=== PATIENT | female | born 1965 | race Caucasian/White ===

== ENCOUNTER 2020-07-22 19:12 | Emergency (ER) | payer MEDICARE ==
[2020-07-22] MEDS ORDERED: Zofran 4 MG/2 ML VIAL IV ONE (19:17)
[2020-07-22] MEDS ORDERED: Sodium Chloride 0.9% 1000 ML 1,000 ML IV STA (19:17)
[2020-07-22] MEDS ORDERED: MORPHINE SULFATE 4 MG INJ IV ONE (19:17)
[2020-07-22] MEDS ORDERED: Zofran 4 MG/2 ML VIAL ONE (19:36)
[2020-07-22] MEDS ORDERED: Sodium Chloride 0.9% 1000 ML 1,000 ML ONE (19:36)
[2020-07-22] MEDS ORDERED: MORPHINE SULFATE 4 MG INJ ONE (19:36)
[2020-07-22 19:44] LABS: BASOPHIL % 0.4 % (0.0-0.4); Basophil (Absolute #) 0.05 (0-0.4); Eosinophil % 0.1 % (0.00-5.0); Eosinophil (Absolute #) 0.01 (0-0.5); Hematocrit 37.9 % (35-47); Hemoglobin 13.2 gm/dl (12.0-16.0); Lymphocyte (Absolute #) 1.34 (1.0-4.6); Lymphocytes % 10.3 % (24.0-44.0); Mean Corpuscular Hemoglobin 32.8 pg (26-32); Mean Corpuscular Hgb Concent. 34.8 g/dl (32-36); Mean Platelet Volume 8.5 fl (7.5-11.0); Monocyte (Absolute #) 0.96 (0.0-1.3); Monocytes % 7.4 % (0.0-12.0); Neutrophil % 81.8 % (36.0-66.0); Platelet Count 340 K/mm3 (150-450); Red Blood Count 4.03 M/mm3 (4.1-5.4); Red Cell Distribution Width 12.4 % (11.5-14.0); White Blood Count 13.1 K/mm3 (4.0-10.5)
[2020-07-22 20:14] LABS: Amourphous Crystal FEW /HPF (NEGATIVE); Appearance CLOUDY (CLEAR); Bilirubin NEGATIVE (NEGATIVE); Blood NEGATIVE Ery/ul (0-5); Epithelial Cells RARE /HPF (FEW); Glucose 50 mg/dL (NEGATIVE); Ketones SMALL (NEGATIVE); Leukocyte Esterase NEGATIVE (NEGATIVE); Mucus SLIGHT /HPF (NEGATIVE); Nitrite NEGATIVE (NEGATIVE); Protein,Urine Dip 30 (Negative); RBC 0-2 /HPF (0-2); Specific Gravity 1.009 (1.005-1.025); Urobilinogen NEGATIVE mg/dL (0-1); WBC 0-2 /HPF (0-5)
[2020-07-22 20:14] LABS: ALBUMIN 4.7 g/dL (3.5-5.0); ALKALINE PHOSPHATASE 77 U/L (38-126); ANION GAP 15.7 MEQ/L (5-15); BLOOD UREA NITROGEN 6 mg/dL (7-17); CHLORIDE 88 mmol/L (98-107); Calcium 9.6 mg/dL (8.4-10.2); Carbon Dioxide 23 mmol/L (22-30); Creatinine 1 0.47 mg/dL (0.52-1.04); EST GLOMERULAR FILTRATION RATE > 60.0 ML/MIN; Glucose 147 mg/dL (74-106); LIPASE 64 U/L (23-300); Potassium 3.6 mmol/L (3.5-5.1); SGOT/AST 34 U/L (14-36); SGPT/ALT 21 U/L (0-35); SODIUM 123 mmol/L (137-145); Total Protein 7.9 g/dL (6.3-8.2)
--- NOTE | 2020-07-22 21:17 | ERPHSYRPT ---
- History of Present Illness Time Seen by Provider: 07/22/20 19:17 Patient Subjective Stated Complaint: Patient states " I was sitting down watching TV and out of nowhere my stomach started having sharp pains throughout the center and I became nauseated and vomited within 4 times before calling 911". Triage Nursing Assessment: Patient arrived to ER via ambulance. Resident A/O times 4. Patient able to follow instructions without difficulty. Able to answer questions correctly and without difficulty. Lungs clear bilateral A/P throughout. Patient denies SOB and denies chest pain. Patient with + hyperactive BS in all 4 quads. ABD soft, flat, non-distended. Patient denies and shows no S/S of pain or discomfort upon palpitation. Patient with N/V. Patient states has vomited fluid like substance around 4 times since ABD pain started. Cap refill < 3 seconds. No S/S of respiratory distress. 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 + Radial and pedal pulses bilateral. No dependent edema noted. Skin turgor < 3 seconds. Oral mucosa clean, moist. Skin turgor 4 seconds. Patient with no emesis upon assessment of patient only nausea. Patient independent with ADL'S. Ambulates per self with steady gait. Patient denies burning upon urination. Patient states fluid and appetite normal. Urine collected and cloudy yellow appearance noted. Physician History: 54 years old female presented in the ER with chief complaint of sudden onset generalized abdominal pain almost 2 hours prior to arrival associated with nausea and multiple episodes of nonprojectile, nonbilious vomiting. No patient feels as if she is going to have diarrhea. Denies any fever or chills. Denies any sick contact. Timing/Duration: today, sudden, worse Activities at Onset: rest Quality: sharpness Abdominal Pain Onset Location: generalized abdomen Severity of Pain-Max: moderate Severity of Pain-Current: moderate Modifying Factors: Worsens With: movement, palpation Associated Symptoms: nausea, vomiting Previous symptoms: no prior history Allergies/Adverse Reactions: No Known Drug Allergies Allergy (Unverified 07/22/20 19:27) Home Medications: Aspirin EC 81 mg [Ecotrin 81 mg] 81 mg PO DAILY 07/22/20 [History] Atorvastatin Calcium [Lipitor 40Mg] 40 mg PO DAILY 07/22/20 [History] Atorvastatin Calcium [Lipitor 40Mg] 40 mg PO DAILY 07/22/20 [History] Clopidogrel Bisulfate 75 mg [PLAVIX 75 MG Tablet] 75 mg PO DAILY 07/22/20 [History] Fluoxetine HCl 40 mg PO HS 07/22/20 [History] Lisinopril 10 mg [Zestril 10 MG] 10 mg PO DAILY 07/22/20 [History] Meloxicam 7.5 mg PO BID 07/22/20 [History] Metoprolol Succinate 25 mg Xl* [Toprol-Xl 25MG Tablets] 25 mg PO BID 07/22/20 [History] Nabumetone [Relafen] 500 mg PO HS PRN 07/22/20 [History] PANTOPRAZOLE 40 mg Tablet [Protonix 40MG Tablet] 40 mg PO QAM 07/22/20 [History] Tizanidine HCl 4 mg [Zanaflex 4 MG] 4 mg PO TID 07/22/20 [History] Hx Tetanus, Diphtheria Vaccination/Date Given: Yes Hx Influenza Vaccination/Date Given: No Hx Pneumococcal Vaccination/Date Given: No Immunizations Up to Date: Yes Travel Risk - International Travel Have you traveled outside of the country in past 3 weeks: No - Coronavirus Screening Are you exhibiting any of the following symptoms?: No Close contact with a COVID-19 positive Pt in past 14-21 Days: No - Review of Systems Constitutional: No Symptoms Eyes: No Symptoms Ears, Nose, & Throat: No Symptoms Respiratory: No Symptoms Cardiac: No Symptoms Abdominal/Gastrointestinal: Abdominal Pain, Nausea, Vomiting Genitourinary Symptoms: No Symptoms Musculoskeletal: No Symptoms Skin: No Symptoms Neurological: No Symptoms Psychological: No Symptoms Endocrine: No Symptoms Hematologic/Lymphatic: No Symptoms - Past Medical History Pertinent Past Medical History: Yes Neurological History: No Pertinent History ENT History: No Pertinent History Cardiac History: High Cholesterol, Hypertension Respiratory History: No Pertinent History Endocrine Medical History: No Pertinent History Musculoskeletal History: Arthritis, Osteoporosis GI Medical History: GERD History: No Pertinent History Psycho-Social History: Depression Female Reproductive Disorders: No Pertinent History - Past Surgical History Past Surgical History: Yes Neuro Surgical History: No Pertinent History Cardiac: Cardiac Catheterization, Cardiac Stent Respiratory: No Pertinent History Gastrointestinal: No Pertinent History Genitourinary: No Pertinent History Female Surgical History: Section, Tubal Ligation Other Surgical History: Hinged Plate in Right Foot - Social History Smoking Status: Current every day smoker How long have you smoked: 40 years Exposure to second hand smoke: Yes Drug Use: none Patient Lives Alone: No - Female History Hx Last Menstrual Period: Tubal - Nursing Vital Signs Nursing Vital Signs: Initial Vital Signs Temperature 99.3 F 07/22/20 19:20 Pulse Rate 72 07/22/20 19:20 Respiratory Rate 20 07/22/20 19:20 Blood Pressure 208/100 07/22/20 19:20 O2 Sat by Pulse Oximetry 97 07/22/20 19:20 Pain Scale Pain Intensity 0 - Physical Exam General Appearance: no apparent distress, alert Eye Exam: PERRL/EOMI, eyes nml inspection Ears, Nose, Throat Exam: normal ENT inspection, TMs normal, pharynx normal Neck Exam: normal inspection, non-tender, supple, full range of motion Respiratory Exam: normal breath sounds, lungs clear Cardiovascular Exam: regular rate/rhythm, normal heart sounds Gastrointestinal/Abdomen Exam: soft, normal bowel sounds, tenderness (Generalized ), No distention, No guarding (facility medical anticoagulant) Back Exam: normal inspection, normal range of motion Extremity Exam: normal inspection, normal range of motion (Patient had acutely worsened) Neurologic Exam: alert, oriented x 3, cooperative Skin Exam: normal color SpO2 Interpretation: normal SpO2: 97 O2 Delivery: Room Air (Declined DVT) on aspirin until) Ordered Tests: Medication Summary Discontinued Medications Generic Name Dose Route Start Last Admin Trade Name Freq PRN Reason Stop Dose Admin Sodium Chloride 1,000 mls @ 999 mls/hr 07/22/20 19:17 07/22/20 20:39 Sodium Chloride 0.9% 1000 Ml IV 07/22/20 20:17 Infused .Q1H1M STA Infusion Sodium Chloride Confirm 07/22/20 19:36 Sodium Chloride 0.9% 1000 Ml Administered 07/22/20 19:37 Dose 1,000 mls @ ud .ROUTE .STK-MED ONE Morphine Sulfate 4 mg 07/22/20 19:17 07/22/20 19:41 Morphine Sulfate 4 Mg Inj IV 07/22/20 19:18 4 mg STAT ONE Administration Morphine Sulfate Confirm 07/22/20 19:36 Morphine Sulfate 4 Mg Inj Administered 07/22/20 19:37 Dose 4 mg .ROUTE .STK-MED ONE Ondansetron HCl 4 mg 07/22/20 19:17 07/22/20 19:41 Zofran 4 Mg/2 Ml Vial IV 07/22/20 19:18 4 mg STAT ONE Administration Ondansetron HCl Confirm 07/22/20 19:36 Zofran 4 Mg/2 Ml Vial Administered 07/22/20 19:37 Dose 4 mg .ROUTE .[facility] ONE Lab/Rad Data: Laboratory Result Diagrams 07/22/20 19:30 07/22/20 19:30 Laboratory Results 07/22/20 07/22/20 07/22/20 Range/Units 19:52 19:30 19:30 WBC (4.0-10.5) K/mm3 RBC (4.1-5.4) M/mm3 Hgb (12.0-16.0) gm/dl Hct (35-47) % MCV (78-100) fl MCH (26-32) pg MCHC (32-36) g/dl RDW (11.5-14.0) % Plt Count (150-450) K/mm3 MPV (7.5-11.0) fl Gran % (36.0-66.0) % Eos # (Auto) (0-0.5) Absolute Lymphs (auto) (1.0-4.6) Absolute Monos (auto) (0.0-1.3) Lymphocytes % (24.0-44.0) % Monocytes % (0.0-12.0) % Eosinophils % (0.00-5.0) % Basophils % (0.0-0.4) % Absolute Granulocytes (1.4-6.9) Basophils # (0-0.4) Sodium 123 L (137-145) mmol/L Potassium 3.6 (3.5-5.1) mmol/L Chloride 88 L (98-107) mmol/L Carbon Dioxide 23 (22-30) mmol/L Anion Gap 15.7 H (5-15) MEQ/L BUN 6 L (7-17) mg/dL Creatinine 0.47 L (0.52-1.04) mg/dL Estimated GFR > 60.0 ML/MIN Glucose 147 H (74-106) mg/dL Calcium 9.6 (8.4-10.2) mg/dL Total Bilirubin 0.70 (0.2-1.3) mg/dL AST 34 (14-36) U/L ALT 21 (0-35) U/L Alkaline Phosphatase 77 (38-126) U/L Troponin I < 0.012 (0.000-0.034) ng/mL Serum Total Protein 7.9 (6.3-8.2) g/dL Albumin 4.7 (3.5-5.0) g/dL Lipase 64 (23-300) U/L Urine Color YELLOW (YELLOW) Urine Appearance CLOUDY (CLEAR) Urine pH 8.0 (5-6) Ur Specific Cecil 1.009 (1.005-1.025) Urine Protein 30 (Negative) Urine Ketones SMALL (NEGATIVE) Urine Blood NEGATIVE (0-5) Roger/ul Urine Nitrite NEGATIVE (NEGATIVE) Urine Bilirubin NEGATIVE (NEGATIVE) Urine Urobilinogen NEGATIVE (0-1) mg/dL Ur Leukocyte Esterase NEGATIVE (NEGATIVE) Urine WBC (Auto) 0-2 (0-5) /HPF Urine RBC (Auto) 0-2 (0-2) /HPF U Epithel Cells (Auto) RARE (FEW) /HPF Urine Bacteria (Auto) NONE (NEGATIVE) /HPF Amorphous Crystals FEW (NEGATIVE) /HPF Urine Mucus (Auto) SLIGHT (NEGATIVE) /HPF Urine Culture Reflexed NO (NO) Urine Glucose 50 (NEGATIVE) mg/dL 07/22/20 Range/Units 19:30 WBC 13.1 H (4.0-10.5) K/mm3 RBC 4.03 L (4.1-5.4) M/mm3 Hgb 13.2 (12.0-16.0) gm/dl Hct 37.9 (35-47) % MCV 94.0 (78-100) fl MCH 32.8 H (26-32) pg MCHC 34.8 (32-36) g/dl RDW 12.4 (11.5-14.0) % Plt Count 340 (150-450) K/mm3 MPV 8.5 (7.5-11.0) fl Gran % 81.8 H (36.0-66.0) % Eos # (Auto) 0.01 (0-0.5) Absolute Lymphs (auto) 1.34 (1.0-4.6) Absolute Monos (auto) 0.96 (0.0-1.3) Lymphocytes % 10.3 L (24.0-44.0) % Monocytes % 7.4 (0.0-12.0) % Eosinophils % 0.1 (0.00-5.0) % Basophils % 0.4 (0.0-0.4) % Absolute Granulocytes 10.70 H (1.4-6.9) Basophils # 0.05 (0-0.4) Sodium (137-145) mmol/L Potassium (3.5-5.1) mmol/L Chloride (98-107) mmol/L Carbon Dioxide (22-30) mmol/L Anion Gap (5-15) MEQ/L BUN (7-17) mg/dL Creatinine (0.52-1.04) mg/dL Estimated GFR ML/MIN Glucose (74-106) mg/dL Calcium (8.4-10.2) mg/dL Total Bilirubin (0.2-1.3) mg/dL AST (14-36) U/L ALT (0-35) U/L Alkaline Phosphatase (38-126) U/L Troponin I (0.000-0.034) ng/mL Serum Total Protein (6.3-8.2) g/dL Albumin (3.5-5.0) g/dL Lipase (23-300) U/L Urine Color (YELLOW) Urine Appearance (CLEAR) Urine pH (5-6) Ur Specific Cecil (1.005-1.025) Urine Protein (Negative) Urine Ketones (NEGATIVE) Urine Blood (0-5) Roger/ul Urine Nitrite (NEGATIVE) Urine Bilirubin (NEGATIVE) Urine Urobilinogen (0-1) mg/dL Ur Leukocyte Esterase (NEGATIVE) Urine WBC (Auto) (0-5) /HPF Urine RBC (Auto) (0-2) /HPF U Epithel Cells (Auto) (FEW) /HPF Urine Bacteria (Auto) (NEGATIVE) /HPF Amorphous Crystals (NEGATIVE) /HPF Urine Mucus (Auto) (NEGATIVE) /HPF Urine Culture Reflexed (NO) Urine Glucose (NEGATIVE) mg/dL - Progress Progress: improved, re-examined Progress Note: 07/22/20 21:14 She is given fluid bolus along with symptomatic treatment for pain, on reevaluation patient is feeling better. Abdominal exam did not show any peritoneal signs. She has ultrasound in all 4 quadrants. She has a white count of 13. . I have obtained CT with contrast which showed findings consistent with gastroenteritis/ileus. 07/22/20 22:25 Patient was discharged, on reevaluation it was found her sodium is 123. I have personally and ER staff has tried to contact her but her contact numbers were not working. 07/23/20 08:26 I have contacted her primary care physician will make sure to call patient and she would be made direct admit. Counseled pt/family regarding: lab results, diagnosis, need for follow-up, rad results - Departure Departure Disposition: Home Clinical Impression: Gastroenteritis Condition: Stable Critical Care Time: No Referrals: CHRIS ROBERT MD [Primary Care Provider] - (1-2 For reevaluation) Instructions: Viral Gastroenteritis Additional Instructions: Keep yourself well-hydrated. Take Tylenol/Zofran as needed. Follow-up with primary care physician for reevaluation. Return to ER for worsening abdominal pain, vomiting or if develop fever chills etc. Prescriptions: Ondansetron ODT 4 MG [Zofran Odt 4 mg] 4 mg PO Q6H PRN PRN #10 tab.rapdis PRN Reason: Vomiting
[2020-07-22 21:29] VITALS: BP 155/85; PULSE 72
[2020-07-23 00:17] VITALS: O2SAT 97
--- NOTE | 2020-07-23 08:56 | XRAY ---
Indication: Abdomen pain with nausea and vomiting. Elevated WBC. Multiple contiguous axial images obtained through the abdomen and pelvis using 80 cc Isovue 370 contrast only. Comparison: None Lung bases demonstrates bibasilar dependent atelectasis and small lingula calcified granuloma. No infiltrate or effusion. Heart is not enlarged. Stomach and small bowel loops are mildly fluid distended with fluid leveling. This is unchanged on delayed imaging. Findings either gastroenteritis versus ileus. Normal appendix. Tiny cul-de-sac fluid presumed physiologic from rupture/leaking cyst. No walled off fluid or free air. Right lobe of the liver demonstrates 5 mm hemangioma. Remaining liver, gallbladder, pancreas, spleen, adrenal glands, kidneys, ureters, bladder, and uterus are unremarkable. Moderate scattered aortoiliac calcifications. No AAA or pathologic retroperitoneal lymphadenopathy. Osseous structures intact with remote-appearing L5 superior endplate fracture with approximately 50% height loss. Impression: 1. Fluid distended stomach and small bowel loops with fluid leveling as detailed. Rule out gastroenteritis versus ileus. 2. Tiny cul-de-sac physiologic fluid. 3. Incidental tiny hepatic hemangioma, lingula calcified granuloma, and remote L5 fracture.
== END 2020-07-22 21:32 | disposition home or self-care (01) ==
LOC: ED 19:12
DX: R10.9 Unspecified abdominal pain (principal); R11.2 Nausea with vomiting, unspecified; K52.9 Noninfective gastroenteritis and colitis, unspecified; E78.5 Hyperlipidemia, unspecified; I10 Essential (primary) hypertension; Z79.899 Other long term (current) drug therapy
CPT/HCPCS: 36000; 36415; 74177; 80053; 81001; 83690; 84484; 85025; 96360; 96374; 96375; 99284; J2270; J2405

== ENCOUNTER 2021-01-01 16:37 | Emergency (ER) | payer MEDICARE ==
[2021-01-01] MEDS ORDERED: Hydromorphone 1 mg/ml Injection IV ONE (16:39)
[2021-01-01] MEDS ORDERED: Zofran 4 MG/2 ML VIAL IV ONE (16:39)
[2021-01-01] MEDS ORDERED: PROTONIX 40 MG IV IV ONE ×2 (16:39→16:50)
[2021-01-01] MEDS ORDERED: Sodium Chloride 0.9% 1000 ML 1,000 ML IV STA (16:39)
[2021-01-01] MEDS ORDERED: Zofran 4 MG/2 ML VIAL ONE (16:50)
[2021-01-01] MEDS ORDERED: Hydromorphone 1 mg/ml Injection ONE (16:50)
[2021-01-01] MEDS ORDERED: Sodium Chloride 0.9% 1000 ML 1,000 ML ONE (16:51)
[2021-01-01 17:07] LABS: Absolute Neutrophil Ct (ANC) 7.81 (1.4-6.9); BASOPHIL % 0.4 % (0.0-0.4); Basophil (Absolute #) 0.04 (0-0.4); Eosinophil (Absolute #) 0 (0-0.5); Hematocrit 39.9 % (35-47); Lymphocyte (Absolute #) 1.03 (1.0-4.6); Lymphocytes % 10.6 % (24.0-44.0); Mean Cell Volume 91.9 fl (78-100); Mean Corpuscular Hemoglobin 32.3 pg (26-32); Mean Corpuscular Hgb Concent. 35.1 g/dl (32-36); Mean Platelet Volume 8.2 fl (7.5-11.0); Monocyte (Absolute #) 0.82 (0.0-1.3); Monocytes % 8.5 % (0.0-12.0); Neutrophil % 80.5 % (36.0-66.0); Platelet Count 407 K/mm3 (150-450); Red Blood Count 4.34 M/mm3 (4.1-5.4); Red Cell Distribution Width 13.2 % (11.5-14.0); White Blood Count 9.7 K/mm3 (4.0-10.5)
--- NOTE | 2021-01-01 17:08 | ERPHSYRPT ---
- History of Present Illness Time Seen by Provider: 01/01/21 16:55 Historian: patient, EMS Exam Limitations: no limitations Patient Subjective Stated Complaint: abd pain Triage Nursing Assessment: pt to ED c/o abd pain onset this am which woke her from sleep. rates 10/10 now. reports some emesis and nausea all day denies diarrhea. abd tender to palp and pain radiates to back. hx diverticulitis. "it feels a whole lot like what happened last time with my diverticulitis." Physician History: Patient is a 55-year-old white female who presents with a complaint of epigastric pain since early this morning. Which has steadily gotten worse till now it rates 10 of 10. Pain is periumbilical and epigastric and it does go t hrough to the back she has no history of abdominal surgery she has had nausea vomiting and some diarrhea. Any fever chills sweats Timing/Duration: today Activities at Onset: none Quality: cramping, stabbing Abdominal Pain Onset Location: epigastric, periumbilical Pain Radiation: no radiation Severity of Pain-Max: severe Severity of Pain-Current: severe Modifying Factors: Improves With: nothing Associated Symptoms: nausea, vomiting Allergies/Adverse Reactions: diazepam [From Valium] Adverse Reaction (Verified 01/01/21 16:46) "It makes me mean" Home Medications: Aspirin EC 81 mg [Ecotrin 81 mg] 81 mg PO DAILY 07/22/20 [History] Atorvastatin Calcium [Lipitor 40Mg] 40 mg PO DAILY 07/22/20 [History] Atorvastatin Calcium [Lipitor 40Mg] 40 mg PO DAILY 07/22/20 [History] Clopidogrel Bisulfate 75 mg [PLAVIX 75 MG Tablet] 75 mg PO DAILY 07/22/20 [History] Lisinopril 10 mg [Zestril 10 MG] 10 mg PO DAILY 07/22/20 [History] PANTOPRAZOLE 40 mg Tablet [Protonix 40MG Tablet] 40 mg PO QAM 07/22/20 [History] Tizanidine HCl 4 mg [Zanaflex 4 MG] 4 mg PO TID 07/22/20 [History] Alprazolam [Xanax] 2 mg PO DAILY 01/01/21 [History] Fluoxetine HCl [Prozac] 40 mg PO DAILY 01/01/21 [History] Meloxicam [Mobic] 15 mg PO DAILY 01/01/21 [History] Nabumetone [Relafen] 500 mg PO DAILY 01/01/21 [History] Hx Tetanus, Diphtheria Vaccination/Date Given: Yes Hx Influenza Vaccination/Date Given: No Hx Pneumococcal Vaccination/Date Given: No Immunizations Up to Date: No Travel Risk - International Travel Have you traveled outside of the country in past 3 weeks: No - Coronavirus Screening Are you exhibiting any of the following symptoms?: No Close contact with a COVID-19 positive Pt in past 14-21 Days: No - Vaccine Status Have you recieved a Covid-19 vaccination: No - Review of Systems Constitutional: No Fever, No Chills Eyes: No Symptoms Ears, Nose, & Throat: No Symptoms Respiratory: No Cough, No Dyspnea Cardiac: No Chest Pain, No Edema, No Syncope Abdominal/Gastrointestinal: Abdominal Pain, Nausea, Vomiting, No Diarrhea Genitourinary Symptoms: No Dysuria Musculoskeletal: No Back Pain, No Neck Pain Skin: No Rash Neurological: No Dizziness, No Focal Weakness, No Sensory Changes Psychological: No Symptoms Endocrine: No Symptoms All Other Systems: Reviewed and Negative - Past Medical History Pertinent Past Medical History: Yes Neurological History: No Pertinent History ENT History: No Pertinent History Cardiac History: High Cholesterol, Hypertension Respiratory History: No Pertinent History Endocrine Medical History: No Pertinent History Musculoskeletal History: Arthritis, Osteoporosis GI Medical History: Diverticulitis, GERD History: No Pertinent History Psycho-Social History: Depression Female Reproductive Disorders: No Pertinent History - Past Surgical History Past Surgical History: Yes Neuro Surgical History: No Pertinent History Cardiac: Cardiac Catheterization, Cardiac Stent Respiratory: No Pertinent History Gastrointestinal: No Pertinent History Genitourinary: No Pertinent History Female Surgical History: Section, Tubal Ligation Other Surgical History: Hinged Plate in Right Foot - Social History Smoking Status: Current every day smoker How long have you smoked: 40 years Exposure to second hand smoke: Yes Drug Use: none Patient Lives Alone: No (daughter) - Nursing Vital Signs Nursing Vital Signs: Initial Vital Signs Temperature 97.0 F 01/01/21 16:38 Pain Scale Pain Intensity 10 - Course Nursing assessment & vital signs reviewed: Yes EKG Interpreted by Me: RATE (89), Sinus Rhythm, NORMAL AXIS, prolonged QT interval, Non-specific ST Changes - CT Exams Abdomen/Pelvis CT Interpretation: Negative Ordered Tests: Active Orders 24 hr Category Date Time Status EKG-ER Only STAT Care 01/01/21 16:39 Active IV Insertion STAT Care 01/01/21 16:39 Active ABDOMEN AND PELVIS W CONTRAST [CT] Stat Exams 01/01/21 18:18 Taken CHEST 1 VIEW (PORTABLE) Stat Exams 01/01/21 16:39 Taken AMYLASE Stat Lab 01/01/21 16:50 Completed BLOOD CULTURE Stat Lab 01/01/21 16:50 Received CBC W DIFF Stat Lab 01/01/21 16:50 Completed CMP Stat Lab 01/01/21 16:50 Completed CULTURE,URINE Stat Lab 01/01/21 16:39 Received LIPASE Stat Lab 01/01/21 16:50 Completed Lactic Acid Stat Lab 01/01/21 16:39 Completed Lactic Acid Stat Lab 01/01/21 18:59 Received PROTIME WITH INR Stat Lab 01/01/21 16:50 Completed TROPONIN Q3H Lab 01/01/21 16:50 Completed TROPONIN Q3H Lab 01/01/21 19:00 Completed TROPONIN Q3H Lab 01/01/21 22:45 Ordered TROPONIN Q3H Lab 01/02/21 01:45 Ordered TROPONIN Q3H Lab 01/02/21 04:45 Ordered UA W/RFX UR CULTURE Stat Lab 01/01/21 16:39 Completed Medication Summary Discontinued Medications Generic Name Dose Route Start Last Admin Trade Name Freq PRN Reason Stop Dose Admin Hydromorphone HCl 1 mg 01/01/21 16:39 01/01/21 17:01 Hydromorphone 1 Mg/Ml Injection IV 01/01/21 16:40 1 mg STAT ONE Administration Hydromorphone HCl Confirm 01/01/21 16:50 Hydromorphone 1 Mg/Ml Injection Administered 01/01/21 16:51 Dose 1 mg .ROUTE .STK-MED ONE Sodium Chloride 1,000 mls @ 999 mls/hr 01/01/21 16:39 01/01/21 16:56 Sodium Chloride 0.9% 1000 Ml IV 01/01/21 17:39 999 mls/hr .Q1H1M STA Administration Sodium Chloride Confirm 01/01/21 16:51 Sodium Chloride 0.9% 1000 Ml Administered 01/01/21 16:52 Dose 1,000 mls @ ud .ROUTE .STK-MED ONE Ondansetron HCl 4 mg 01/01/21 16:39 01/01/21 16:59 Zofran 4 Mg/2 Ml Vial IV 01/01/21 16:40 4 mg STAT ONE Administration Ondansetron HCl Confirm 01/01/21 16:50 Zofran 4 Mg/2 Ml Vial Administered 01/01/21 16:51 Dose 4 mg .ROUTE .STK-MED ONE Pantoprazole Sodium 40 mg 01/01/21 16:39 01/01/21 17:03 Protonix 40 Mg Iv IV 01/01/21 16:40 40 mg STAT ONE Administration Pantoprazole Sodium Confirm 01/01/21 16:50 Protonix 40 Mg Iv Administered 01/01/21 16:51 Dose 40 mg IV .STK-MED ONE Lab/Rad Data: Laboratory Result Diagrams 01/01/21 16:50 01/01/21 16:50 Laboratory Results 01/01/21 01/01/21 01/01/21 Range/Units 19:00 16:50 16:50 WBC (4.0-10.5) K/mm3 RBC (4.1-5.4) M/mm3 Hgb (12.0-16.0) gm/dl Hct (35-47) % MCV (78-100) fl MCH (26-32) pg MCHC (32-36) g/dl RDW (11.5-14.0) % Plt Count (150-450) K/mm3 MPV (7.5-11.0) fl Gran % (36.0-66.0) % Eos # (Auto) (0-0.5) Absolute Lymphs (auto) (1.0-4.6) Absolute Monos (auto) (0.0-1.3) Lymphocytes % (24.0-44.0) % Monocytes % (0.0-12.0) % Eosinophils % (0.00-5.0) % Basophils % (0.0-0.4) % Absolute Granulocytes (1.4-6.9) Basophils # (0-0.4) PT 11.6 (9.4-12.5) SECONDS INR 0.98 (0.8-3.0) Sodium (137-145) mmol/L Potassium (3.5-5.1) mmol/L Chloride (98-107) mmol/L Carbon Dioxide (22-30) mmol/L Anion Gap (5-15) MEQ/L BUN (7-17) mg/dL Creatinine (0.52-1.04) mg/dL Estimated GFR ML/MIN Glucose (74-106) mg/dL Lactic Acid (0.4-2.0) Calcium (8.4-10.2) mg/dL Total Bilirubin (0.2-1.3) mg/dL AST (14-36) U/L ALT (0-35) U/L Alkaline Phosphatase (38-126) U/L Troponin I < 0.012 < 0.012 (0.000-0.034) ng/mL Serum Total Protein (6.3-8.2) g/dL Albumin (3.5-5.0) g/dL Amylase (30-110) U/L Lipase (23-300) U/L Urine Color (YELLOW) Urine Appearance (CLEAR) Urine pH (5-6) Ur Specific [place] (1.005-1.025) Urine Protein (Negative) Urine Ketones (NEGATIVE) Urine Blood (0-5) Roger/ul Urine Nitrite (NEGATIVE) Urine Bilirubin (NEGATIVE) Urine Urobilinogen (0-1) mg/dL Ur Leukocyte Esterase (NEGATIVE) Urine WBC (Auto) (0-5) /HPF Urine RBC (Auto) (0-2) /HPF U Hyaline Cast (Auto) (0-2) /LPF U Epithel Cells (Auto) (FEW) /HPF Urine Bacteria (Auto) (NEGATIVE) /HPF Urine Mucus (Auto) (NEGATIVE) /HPF Urine Culture Reflexed (NO) Urine Glucose (NEGATIVE) mg/dL 01/01/21 01/01/21 01/01/21 Range/Units 16:50 16:50 16:39 WBC 9.7 (4.0-10.5) K/mm3 RBC 4.34 (4.1-5.4) M/mm3 Hgb 14.0 (12.0-16.0) gm/dl Hct 39.9 (35-47) % MCV 91.9 (78-100) fl MCH 32.3 H (26-32) pg MCHC 35.1 (32-36) g/dl RDW 13.2 (11.5-14.0) % Plt Count 407 (150-450) K/mm3 MPV 8.2 (7.5-11.0) fl Gran % 80.5 H (36.0-66.0) % Eos # (Auto) 0 (0-0.5) Absolute Lymphs (auto) 1.03 (1.0-4.6) Absolute Monos (auto) 0.82 (0.0-1.3) Lymphocytes % 10.6 L (24.0-44.0) % Monocytes % 8.5 (0.0-12.0) % Eosinophils % 0.0 (0.00-5.0) % Basophils % 0.4 (0.0-0.4) % Absolute Granulocytes 7.81 H (1.4-6.9) Basophils # 0.04 (0-0.4) PT (9.4-12.5) SECONDS INR (0.8-3.0) Sodium 126 L (137-145) mmol/L Potassium 3.6 (3.5-5.1) mmol/L Chloride 87 L (98-107) mmol/L Carbon Dioxide 20 L (22-30) mmol/L Anion Gap 21.9 H (5-15) MEQ/L BUN 4 L (7-17) mg/dL Creatinine 0.53 (0.52-1.04) mg/dL Estimated GFR > 60.0 ML/MIN Glucose 169 H (74-106) mg/dL Lactic Acid 2.7 H (0.4-2.0) Calcium 10.2 (8.4-10.2) mg/dL Total Bilirubin 0.80 (0.2-1.3) mg/dL AST 40 H (14-36) U/L ALT 17 (0-35) U/L Alkaline Phosphatase 102 (38-126) U/L Troponin I (0.000-0.034) ng/mL Serum Total Protein 8.4 H (6.3-8.2) g/dL Albumin 5.2 H (3.5-5.0) g/dL Amylase 72 (30-110) U/L Lipase 81 (23-300) U/L Urine Color (YELLOW) Urine Appearance (CLEAR) Urine pH (5-6) Ur Specific [place] (1.005-1.025) Urine Protein (Negative) Urine Ketones (NEGATIVE) Urine Blood (0-5) Roger/ul Urine Nitrite (NEGATIVE) Urine Bilirubin (NEGATIVE) Urine Urobilinogen (0-1) mg/dL Ur Leukocyte Esterase (NEGATIVE) Urine WBC (Auto) (0-5) /HPF Urine RBC (Auto) (0-2) /HPF U Hyaline Cast (Auto) (0-2) /LPF U Epithel Cells (Auto) (FEW) /HPF Urine Bacteria (Auto) (NEGATIVE) /HPF Urine Mucus (Auto) (NEGATIVE) /HPF Urine Culture Reflexed (NO) Urine Glucose (NEGATIVE) mg/dL 01/01/21 Range/Units 16:39 WBC (4.0-10.5) K/mm3 RBC (4.1-5.4) M/mm3 Hgb (12.0-16.0) gm/dl Hct (35-47) % MCV (78-100) fl MCH (26-32) pg MCHC (32-36) g/dl RDW (11.5-14.0) % Plt Count (150-450) K/mm3 MPV (7.5-11.0) fl Gran % (36.0-66.0) % Eos # (Auto) (0-0.5) Absolute Lymphs (auto) (1.0-4.6) Absolute Monos (auto) (0.0-1.3) Lymphocytes % (24.0-44.0) % Monocytes % (0.0-12.0) % Eosinophils % (0.00-5.0) % Basophils % (0.0-0.4) % Absolute Granulocytes (1.4-6.9) Basophils # (0-0.4) PT (9.4-12.5) SECONDS INR (0.8-3.0) Sodium (137-145) mmol/L Potassium (3.5-5.1) mmol/L Chloride (98-107) mmol/L Carbon Dioxide (22-30) mmol/L Anion Gap (5-15) MEQ/L BUN (7-17) mg/dL Creatinine (0.52-1.04) mg/dL Estimated GFR ML/MIN Glucose (74-106) mg/dL Lactic Acid (0.4-2.0) Calcium (8.4-10.2) mg/dL Total Bilirubin (0.2-1.3) mg/dL AST (14-36) U/L ALT (0-35) U/L Alkaline Phosphatase (38-126) U/L Troponin I (0.000-0.034) ng/mL Serum Total Protein (6.3-8.2) g/dL Albumin (3.5-5.0) g/dL Amylase (30-110) U/L Lipase (23-300) U/L Urine Color YELLOW (YELLOW) Urine Appearance CLOUDY (CLEAR) Urine pH 8.0 (5-6) Ur Specific [place] 1.018 (1.005-1.025) Urine Protein 100 (Negative) Urine Ketones SMALL (NEGATIVE) Urine Blood NEGATIVE (0-5) Roger/ul Urine Nitrite NEGATIVE (NEGATIVE) Urine Bilirubin NEGATIVE (NEGATIVE) Urine Urobilinogen NEGATIVE (0-1) mg/dL Ur Leukocyte Esterase SMALL (NEGATIVE) Urine WBC (Auto) 3-5 (0-5) /HPF Urine RBC (Auto) NONE (0-2) /HPF U Hyaline Cast (Auto) 3-5 (0-2) /LPF U Epithel Cells (Auto) RARE (FEW) /HPF Urine Bacteria (Auto) NONE (NEGATIVE) /HPF Urine Mucus (Auto) SLIGHT (NEGATIVE) /HPF Urine Culture Reflexed YES (NO) Urine Glucose 50 (NEGATIVE) mg/dL - Progress Progress: improved - Departure Departure Disposition: Home Clinical Impression: Hyponatremia Condition: Stable Critical Care Time: No Referrals: CHRIS ROBERT MD [Primary Care Provider] - Instructions: Acute Abdomen (Belly Pain), Adult (DC) Additional Instructions: Fluid intake to 600 mL/day for 2 days and then limited to 1 L/day until you see Prescriptions: Ondansetron HCl [Zofran] 4 mg PO TID PRN #10 tablet PRN Reason: Nausea/Vomiting
[2021-01-01 17:24] LABS: INR 0.98 (0.8-3.0); PROTIME 11.6 SECONDS (9.4-12.5)
[2021-01-01 17:33] LABS: ALBUMIN 5.2 g/dL (3.5-5.0); ALKALINE PHOSPHATASE 102 U/L (38-126); AMYLASE 72 U/L (30-110); ANION GAP 21.9 MEQ/L (5-15); BLOOD UREA NITROGEN 4 mg/dL (7-17); CHLORIDE 87 mmol/L (98-107); Calcium 10.2 mg/dL (8.4-10.2); Carbon Dioxide 20 mmol/L (22-30); Creatinine 1 0.53 mg/dL (0.52-1.04); EST GLOMERULAR FILTRATION RATE > 60.0 ML/MIN; Glucose 169 mg/dL (74-106); LIPASE 81 U/L (23-300); Potassium 3.6 mmol/L (3.5-5.1); SGOT/AST 40 U/L (14-36); SGPT/ALT 17 U/L (0-35); SODIUM 126 mmol/L (137-145); Total Protein 8.4 g/dL (6.3-8.2)
[2021-01-01 19:01] LABS: Appearance CLOUDY (CLEAR); Bilirubin NEGATIVE (NEGATIVE); Blood NEGATIVE Ery/ul (0-5); Epithelial Cells RARE /HPF (FEW); Glucose 50 mg/dL (NEGATIVE); Ketones SMALL (NEGATIVE); Leukocyte Esterase SMALL (NEGATIVE); Mucus SLIGHT /HPF (NEGATIVE); Nitrite NEGATIVE (NEGATIVE); Protein,Urine Dip 100 (Negative); Specific Gravity 1.018 (1.005-1.025); Urobilinogen NEGATIVE mg/dL (0-1)
[2021-01-01] MEDS ORDERED: Catapres 0.1 MG PO ONE (19:48)
[2021-01-01] MEDS ORDERED: NORVASC 5 MG PO ONE (19:48)
[2021-01-01] MEDS ORDERED: Catapres 0.1 MG ONE (19:49)
[2021-01-01] MEDS ORDERED: NORVASC 5 MG ONE (19:49)
[2021-01-01] MEDS ORDERED: Lopressor 25MG Tab ONE (19:50)
[2021-01-01] MEDS ORDERED: Lopressor 25MG Tab PO ONE (19:50)
[2021-01-01 19:52] VITALS: O2SAT 96
[2021-01-01 20:07] VITALS: BP 200/100; PULSE 76
--- NOTE | 2021-01-01 22:41 | XRAY ---
Indication: Abdomen/pelvic pain. Nausea, vomiting, and diarrhea. History kidney stones. Multiple contiguous axial images obtained through the abdomen and pelvis using 80 cc Isovue 370 contrast. Comparison: July 22, 2020. Lung bases demonstrate stable lingula calcified granuloma. No infiltrate or effusion. Heart not enlarged. Abdomen/pelvis limited by respiration artifact. Noncontrasted stomach and bowel loops are nonobstructed. Normal appendix. No free fluid/air. Remaining liver, gallbladder, pancreas, spleen, adrenal glands, kidneys, ureters, bladder, and uterus unremarkable. There remains moderate aortoiliac calcifications. No AAA or pathological retroperitoneal lymphadenopathy. Osseous structures intact with stable remote L5 superior endplate fracture. Impression: 1. Respiration artifact. 2. Stable lingula calcified granuloma and remote L5 fracture. 3. Remaining CT abdomen/pelvis with contrast exam is negative. Comment: Preliminary interpretation was made by [facility]. No critical discrepancy.
--- NOTE | 2021-01-01 22:43 | XRAY ---
Indication: Cough. Comparison: None Portable chest hyperinflated with tiny lingula/hilar calcified granulomas. No focal infiltrate, consolidation, or large effusion. Heart not enlarged. Bony thorax demonstrates osteopenia and multiple left rib fractures of uncertain capacity.
== END 2021-01-01 20:52 | disposition home or self-care (01) ==
LOC: ED 16:37
DX: E87.1 Hypo-osmolality and hyponatremia (principal); R10.13 Epigastric pain; R10.33 Periumbilical pain; R11.2 Nausea with vomiting, unspecified; Z79.899 Other long term (current) drug therapy; E78.00 Pure hypercholesterolemia, unspecified; I10 Essential (primary) hypertension
CPT/HCPCS: 36415; 71045; 74177; 80053; 81001; 82150; 83605; 83690; 84484; 85025; 85610; 87040; 87086; 93005; 96374; 96375; 99285; J1170; J2405; A9270-GY

== ENCOUNTER 2021-01-05 16:51 | Observation (INO) | payer MEDICARE ==
[2021-01-05] MEDS ORDERED: Sodium Chloride 0.9% 1000 ML 1,000 ML IV STA (17:16)
[2021-01-05 17:38] LABS: Absolute Neutrophil Ct (ANC) 5.75 (1.4-6.9); BASOPHIL % 0.3 % (0.0-0.4); Basophil (Absolute #) 0.03 (0-0.4); Eosinophil % 0.2 % (0.00-5.0); Eosinophil (Absolute #) 0.02 (0-0.5); Hematocrit 39.1 % (35-47); Hemoglobin 13.5 gm/dl (12.0-16.0); Lymphocyte (Absolute #) 2.78 (1.0-4.6); Lymphocytes % 28.9 % (24.0-44.0); Mean Cell Volume 94.2 fl (78-100); Mean Corpuscular Hemoglobin 32.5 pg (26-32); Mean Corpuscular Hgb Concent. 34.5 g/dl (32-36); Mean Platelet Volume 8.5 fl (7.5-11.0); Monocyte (Absolute #) 1.05 (0.0-1.3); Monocytes % 10.9 % (0.0-12.0); Neutrophil % 59.7 % (36.0-66.0); Platelet Count 352 K/mm3 (150-450); Red Blood Count 4.15 M/mm3 (4.1-5.4); Red Cell Distribution Width 13.1 % (11.5-14.0); White Blood Count 9.6 K/mm3 (4.0-10.5)
[2021-01-05 17:49] LABS: ALBUMIN 4.8 g/dL (3.5-5.0); ALKALINE PHOSPHATASE 78 U/L (38-126); BLOOD UREA NITROGEN 21 mg/dL (7-17); CHLORIDE 88 mmol/L (98-107); Calcium 9.8 mg/dL (8.4-10.2); Carbon Dioxide 25 mmol/L (22-30); Creatinine 1 0.79 mg/dL (0.52-1.04); EST GLOMERULAR FILTRATION RATE > 60.0 ML/MIN; ETHYL ALCOHOL < 10 mg/dL (0-10); Glucose 115 mg/dL (74-106); MAGNESIUM 1.8 mg/dL (1.6-2.3); SGOT/AST 34 U/L (14-36); SGPT/ALT 16 U/L (0-35); SODIUM 128 mmol/L (137-145)
[2021-01-05 17:52] LABS: Potassium 2.9 mmol/L (3.5-5.1)
[2021-01-05] MEDS ORDERED: Klor Con 10 MEQ PO ONE ×2 (17:57→18:25)
[2021-01-05] MEDS ORDERED: Sodium Chloride 0.9% 1000 ML 1,000 ML ONE ×2 (18:25→21:57)
[2021-01-05] MEDS: POTASSIUM CHLORIDE 20 mEq IN WATER 100ML 20 MEQ/100 ML BAG IV SCH ×2 (18:34→20:42)
--- NOTE | 2021-01-05 18:53 | ERPHSYRPT ---
- History of Present Illness Time Seen by Provider: 01/05/21 16:57 Source: patient, family, other Exam Limitations: clinical condition Patient Subjective Stated Complaint: PT states "I was sent by Dr. Lang.". Pt daughter states "She was in the hospital for high sodium and today she went to see Dr. Lang and she was confused. She has bouts of confusion." Triage Nursing Assessment: Pt presented alert and confused. Pt able to answer some questions but not others. pt in no apparent respiratory distress. Pt resting comfortably on bed, pupils slightly dilated. Physician History: 55 years old female with history of hypertension, hyperlipidemia, CAD, anxiety sent in ER from primary care office with chief complaint of confusion. As per patient/daughter and PCP patient has been confused off and on since yesterday, staring blankly and have episodes when she is not answering questions appropriately no difficulty walking. No speech or visual disturbance. No focal numbness tingling or weakness patient was recently seen in the ER with hyponatremia. Denies any chest pain palpitations or shortness of breath. During my evaluation patient is awake alert but not fully oriented but follows all the commands. No obvious focal neuro deficit noted Timing/Duration: day(s) (1), intermittent, gradual onset, worse Severity: moderate Baseline/Normal Cognition: alert oriented x 3 Current Cognition: alert but confused Baseline Gait: walks w/o assistance Allergies/Adverse Reactions: diazepam [From Valium] Adverse Reaction (Verified 01/01/21 16:46) "It makes me mean" Home Medications: Aspirin EC 81 mg [Ecotrin 81 mg] 81 mg PO DAILY 07/22/20 [History] Atorvastatin Calcium [Lipitor 40Mg] 40 mg PO DAILY 07/22/20 [History] Atorvastatin Calcium [Lipitor 40Mg] 40 mg PO DAILY 07/22/20 [History] Clopidogrel Bisulfate 75 mg [PLAVIX 75 MG Tablet] 75 mg PO DAILY 07/22/20 [History] Lisinopril 10 mg [Zestril 10 MG] 10 mg PO DAILY 07/22/20 [History] PANTOPRAZOLE 40 mg Tablet [Protonix 40MG Tablet] 40 mg PO QAM 07/22/20 [History] Tizanidine HCl 4 mg [Zanaflex 4 MG] 4 mg PO TID 07/22/20 [History] Alprazolam [Xanax] 2 mg PO DAILY 01/01/21 [History] Fluoxetine HCl [Prozac] 40 mg PO DAILY 01/01/21 [History] Meloxicam [Mobic] 15 mg PO DAILY 01/01/21 [History] Nabumetone [Relafen] 500 mg PO DAILY 01/01/21 [History] Hx Tetanus, Diphtheria Vaccination/Date Given: Yes Hx Influenza Vaccination/Date Given: No Hx Pneumococcal Vaccination/Date Given: No Immunizations Up to Date: Yes Travel Risk - International Travel Have you traveled outside of the country in past 3 weeks: No - Coronavirus Screening Are you exhibiting any of the following symptoms?: No Close contact with a COVID-19 positive Pt in past 14-21 Days: No - Vaccine Status Have you recieved a Covid-19 vaccination: No - Review of Systems All Other Systems: Unable due to condition - Past Medical History Pertinent Past Medical History: Yes Neurological History: No Pertinent History ENT History: No Pertinent History Cardiac History: High Cholesterol, Hypertension Respiratory History: No Pertinent History Endocrine Medical History: No Pertinent History Musculoskeletal History: Arthritis, Osteoporosis GI Medical History: Diverticulitis, GERD History: No Pertinent History Psycho-Social History: Depression Female Reproductive Disorders: No Pertinent History - Past Surgical History Past Surgical History: Yes Neuro Surgical History: No Pertinent History Cardiac: Cardiac Catheterization, Cardiac Stent Respiratory: No Pertinent History Gastrointestinal: No Pertinent History Genitourinary: No Pertinent History Female Surgical History: Section, Tubal Ligation Other Surgical History: Hinged Plate in Right Foot - Social History Smoking Status: Current every day smoker How long have you smoked: years Exposure to second hand smoke: No Drug Use: none Patient Lives Alone: No - Female History Hx Now: No - Nursing Vital Signs Nursing Vital Signs: Initial Vital Signs Temperature 97.4 F 01/05/21 16:51 Pulse Rate 82 01/05/21 16:51 Respiratory Rate 22 01/05/21 16:51 Blood Pressure 188/105 01/05/21 16:51 O2 Sat by Pulse Oximetry 96 01/05/21 16:51 Pain Scale Pain Intensity 0 - [place] Coma Scale Best Eye Response (Brittni): (4) open spontaneously Best Verbal Response (Br[place]): (4) confused conversation Best Motor Response ([place]): (6) obeys commands Brittni Total: 14 - Physical Exam General Appearance: no apparent distress, alert Eye Exam: bilateral eye: normal inspection, PERRL, EOMI Ears, Nose, Throat Exam: normal ENT inspection, TMs normal, pharynx normal Neck Exam: normal inspection, non-tender, supple, full range of motion Respiratory: normal breath sounds, lungs clear, No chest tenderness Cardiovascular: regular rate/rhythm, normal heart sounds Gastrointestinal: soft, normal bowel sounds, No tenderness Back Exam: normal inspection, normal range of motion, No CVA tenderness Extremity Exam: normal inspection, normal range of motion, pelvis stable Mental Status: alert, cooperative, disoriented to time, No oriented x 3, 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 Exam: normal hearing, normal speech, PERRL, No facial asymmetry, No facial droop Coordination/Gait: normal finger to nose, normal gait, normal cerebellar function, negative Romberg's sign Motor/Sensory: no motor deficit, no sensory deficit, no pronator drift, negative Babinski's sign DTR: bicep (R): 2+, bicep (L): 2+, knee (R): 2+, knee (L): 2+ Skin Exam: normal color SpO2 Interpretation: normal SpO2: 97 O2 Delivery: Room Air - Course EKG Interpreted by Me: RATE (85), Sinus Rhythm (PACs), NORMAL AXIS, NORMAL INT ERVALS, Q-wave, Other (LVH) Ordered Tests: Active Orders 24 hr Category Date Time Status Up With Assistance ROUTINE Activity 01/06/21 00:21 Active Code Status Order ROUTINE Care 01/06/21 00:21 Active Fall Protocol ROUTINE Care 01/06/21 00:21 Active IV Care Q6H Care 01/06/21 00:21 Active Neuro Checks Q4H Care 01/06/21 00:21 Active POCT Glucose Check ACHS Care 01/06/21 00:[address] in Observation ROUTINE Care 01/06/21 00:21 Active Telemetry q4h Care 01/05/21 17:57 Completed Consult Tele-Health [Tele-Health Consult] ROUTINE Cons 01/05/21 19:05 Completed CHEST 1 VIEW (PORTABLE) Stat Exams 01/05/21 17:16 Taken HEAD WITHOUT CONTRAST [CT] Stat Exams 01/05/21 17:17 Taken CBC W DIFF AM.LAB Lab 01/06/21 04:00 Ordered CBC W DIFF Stat Lab 01/05/21 17:05 Completed CMP AM.LAB Lab 01/06/21 04:00 Ordered CMP Stat Lab 01/05/21 17:05 Completed CULTURE,URINE Stat Lab 01/05/21 22:33 Received ETHYL ALCOHOL Stat Lab 01/05/21 17:05 Completed Lactic Acid Stat Lab 01/05/21 17:05 Completed MAGNESIUM Stat Lab 01/05/21 17:05 Completed TROPONIN Q3H Lab 01/05/21 17:05 Completed TROPONIN Q3H Lab 01/05/21 19:50 Completed TROPONIN Q3H Lab 01/05/21 23:30 Completed TROPONIN Q3H Lab 01/06/21 02:30 Ordered TROPONIN Q3H Lab 01/06/21 05:30 Ordered UA W/RFX UR CULTURE Stat Lab 01/05/21 22:33 Completed Urine Triage Profile Stat Lab 01/05/21 22:33 Completed Transfer Order Routine Transfer 01/05/21 Completed Medication Summary Generic Name Dose Route Start Last Admin Trade Name Freq PRN Reason Stop Dose Admin Potassium Chloride 20 meq in 100 mls @ 50 mls/hr 01/05/21 18:00 01/05/21 20:42 Potassium Chloride 20 Meq In Water 100ml IV 01/06/21 00:21 50 mls/hr Q2H DARIUS Administration Potassium Chloride/Sodium Chloride 1,000 mls @ 125 mls/hr 01/06/21 00:21 Sodium Chloride 0.9% W/ 20 Meq Kcl/Liter IV 02/05/21 00:20 .Q8H DARIUS Pantoprazole Sodium 40 mg 01/06/21 10:00 Protonix 40 Mg Iv IV 02/05/21 09:59 Q24H10 DARIUS Discontinued Medications Generic Name Dose Route Start Last Admin Trade Name Freq PRN Reason Stop Dose Admin Sodium Chloride 1,000 mls @ 999 mls/hr 01/05/21 17:16 01/05/21 19:37 Sodium Chloride 0.9% 1000 Ml IV 01/05/21 18:16 Infused .Q1H1M STA Infusion Sodium Chloride Confirm 01/05/21 18:25 Sodium Chloride 0.9% 1000 Ml Administered 01/05/21 18:26 Dose 1,000 mls @ ud .ROUTE .STK-MED ONE Sodium Chloride 1,000 mls @ 125 mls/hr 01/05/21 22:00 01/05/21 22:00 Sodium Chloride 0.9% 1000 Ml IV 02/04/21 21:59 125 mls/hr .Q8H DARIUS Administration Sodium Chloride Confirm 01/05/21 21:57 Sodium Chloride 0.9% 1000 Ml Administered 01/05/21 21:58 Dose 1,000 mls @ ud .ROUTE .STK-MED ONE Potassium Chloride 40 meq 01/05/21 17:57 01/05/21 18:36 Klor Con 10 Meq PO 01/05/21 17:58 40 meq STAT ONE Administration Potassium Chloride Confirm 01/05/21 18:25 Klor Con 10 Meq Administered 01/05/21 18:26 Dose 40 meq PO .STK-MED ONE Lab/Rad Data: Laboratory Result Diagrams 01/05/21 17:05 01/05/21 17:05 Laboratory Results 01/05/21 01/05/21 01/05/21 Range/Units 23:30 22:33 22:33 WBC (4.0-10.5) K/mm3 RBC (4.1-5.4) M/mm3 Hgb (12.0-16.0) gm/dl Hct (35-47) % MCV (78-100) fl MCH (26-32) pg MCHC (32-36) g/dl RDW (11.5-14.0) % Plt Count (150-450) K/mm3 MPV (7.5-11.0) fl Gran % (36.0-66.0) % Eos # (Auto) (0-0.5) Absolute Lymphs (auto) (1.0-4.6) Absolute Monos (auto) (0.0-1.3) Lymphocytes % (24.0-44.0) % Monocytes % (0.0-12.0) % Eosinophils % (0.00-5.0) % Basophils % (0.0-0.4) % Absolute Granulocytes (1.4-6.9) Basophils # (0-0.4) Sodium (137-145) mmol/L Potassium (3.5-5.1) mmol/L Chloride (98-107) mmol/L Carbon Dioxide (22-30) mmol/L Anion Gap (5-15) MEQ/L BUN (7-17) mg/dL Creatinine (0.52-1.04) mg/dL Estimated GFR ML/MIN Glucose (74-106) mg/dL Lactic Acid (0.4-2.0) Calcium (8.4-10.2) mg/dL Magnesium (1.6-2.3) mg/dL Total Bilirubin (0.2-1.3) mg/dL AST (14-36) U/L ALT (0-35) U/L Alkaline Phosphatase (38-126) U/L Troponin I 0.020 (0.000-0.034) ng/mL Serum Total Protein (6.3-8.2) g/dL Albumin (3.5-5.0) g/dL Urine Color YELLOW (YELLOW) Urine Appearance SLIGHTLY CLOUDY (CLEAR) Urine pH 5.0 (5-6) Ur Specific [place] 1.016 (1.005-1.025) Urine Protein 30 (Negative) Urine Ketones SMALL (NEGATIVE) Urine Blood NEGATIVE (0-5) Roger/ul Urine Nitrite NEGATIVE (NEGATIVE) Urine Bilirubin NEGATIVE (NEGATIVE) Urine Urobilinogen 2 (0-1) mg/dL Ur Leukocyte Esterase TRACE (NEGATIVE) Urine WBC (Auto) 6-10 (0-5) /HPF Urine RBC (Auto) 0-2 (0-2) /HPF U Hyaline Cast (Auto) 3-5 (0-2) /LPF U Epithel Cells (Auto) RARE (FEW) /HPF Urine Bacteria (Auto) RARE (NEGATIVE) /HPF Urine Mucus (Auto) SLIGHT (NEGATIVE) /HPF Urine Culture Reflexed YES (NO) Urine Glucose NEGATIVE (NEGATIVE) mg/dL Urine Opiates Level NEGATIVE (NEGATIVE) Ur Methadone NEGATIVE (NEGATIVE) Urine Barbiturates NEGATIVE (NEGATIVE) Ur Phencyclidine (PCP) NEGATIVE (NEGATIVE) Urine Amphetamine NEGATIVE (NEGATIVE) U Benzodiazepine Level NEGATIVE (NEGATIVE) Urine Cocaine NEGATIVE (NEGATIVE) Urine Marijuana (THC) NEGATIVE (NEGATIVE) Ethyl Alcohol (0-10) mg/dL SARS-CoV-2 (PCR) (NEGATIVE) 01/05/21 01/05/21 01/05/21 Range/Units 20:40 19:50 17:05 WBC (4.0-10.5) K/mm3 RBC (4.1-5.4) M/mm3 Hgb (12.0-16.0) gm/dl Hct (35-47) % MCV (78-100) fl MCH (26-32) pg MCHC (32-36) g/dl RDW (11.5-14.0) % Plt Count (150-450) K/mm3 MPV (7.5-11.0) fl Gran % (36.0-66.0) % Eos # (Auto) (0-0.5) Absolute Lymphs (auto) (1.0-4.6) Absolute Monos (auto) (0.0-1.3) Lymphocytes % (24.0-44.0) % Monocytes % (0.0-12.0) % Eosinophils % (0.00-5.0) % Basophils % (0.0-0.4) % Absolute Granulocytes (1.4-6.9) Basophils # (0-0.4) Sodium (137-145) mmol/L Potassium (3.5-5.1) mmol/L Chloride (98-107) mmol/L Carbon Dioxide (22-30) mmol/L Anion Gap (5-15) MEQ/L BUN (7-17) mg/dL Creatinine (0.52-1.04) mg/dL Estimated GFR ML/MIN Glucose (74-106) mg/dL Lactic Acid (0.4-2.0) Calcium (8.4-10.2) mg/dL Magnesium (1.6-2.3) mg/dL Total Bilirubin (0.2-1.3) mg/dL AST (14-36) U/L ALT (0-35) U/L Alkaline Phosphatase (38-126) U/L Troponin I 0.021 0.020 (0.000-0.034) ng/mL Serum Total Protein (6.3-8.2) g/dL Albumin (3.5-5.0) g/dL Urine Color (YELLOW) Urine Appearance (CLEAR) Urine pH (5-6) Ur Specific [place] (1.005-1.025) Urine Protein (Negative) Urine Ketones (NEGATIVE) Urine Blood (0-5) Roger/ul Urine Nitrite (NEGATIVE) Urine Bilirubin (NEGATIVE) Urine Urobilinogen (0-1) mg/dL Ur Leukocyte Esterase (NEGATIVE) Urine WBC (Auto) (0-5) /HPF Urine RBC (Auto) (0-2) /HPF U Hyaline Cast (Auto) (0-2) /LPF U Epithel Cells (Auto) (FEW) /HPF Urine Bacteria (Auto) (NEGATIVE) /HPF Urine Mucus (Auto) (NEGATIVE) /HPF Urine Culture Reflexed (NO) Urine Glucose (NEGATIVE) mg/dL Urine Opiates Level (NEGATIVE) Ur Methadone (NEGATIVE) Urine Barbiturates (NEGATIVE) Ur Phencyclidine (PCP) (NEGATIVE) Urine Amphetamine (NEGATIVE) U Benzodiazepine Level (NEGATIVE) Urine Cocaine (NEGATIVE) Urine Marijuana (THC) (NEGATIVE) Ethyl Alcohol (0-10) mg/dL SARS-CoV-2 (PCR) NEGATIVE (NEGATIVE) 01/05/21 01/05/21 01/05/21 Range/Units 17:05 17:05 17:05 WBC 9.6 (4.0-10.5) K/mm3 RBC 4.15 (4.1-5.4) M/mm3 Hgb 13.5 (12.0-16.0) gm/dl Hct 39.1 (35-47) % MCV 94.2 (78-100) fl MCH 32.5 H (26-32) pg MCHC 34.5 (32-36) g/dl RDW 13.1 (11.5-14.0) % Plt Count 352 (150-450) K/mm3 MPV 8.5 (7.5-11.0) fl Gran % 59.7 (36.0-66.0) % Eos # (Auto) 0.02 (0-0.5) Absolute Lymphs (auto) 2.78 (1.0-4.6) Absolute Monos (auto) 1.05 (0.0-1.3) Lymphocytes % 28.9 (24.0-44.0) % Monocytes % 10.9 (0.0-12.0) % Eosinophils % 0.2 (0.00-5.0) % Basophils % 0.3 (0.0-0.4) % Absolute Granulocytes 5.75 (1.4-6.9) Basophils # 0.03 (0-0.4) Sodium 128 L (137-145) mmol/L Potassium 2.9 L* (3.5-5.1) mmol/L Chloride 88 L (98-107) mmol/L Carbon Dioxide 25 (22-30) mmol/L Anion Gap 18.0 H (5-15) MEQ/L BUN 21 H (7-17) mg/dL Creatinine 0.79 (0.52-1.04) mg/dL Estimated GFR > 60.0 ML/MIN Glucose 115 H (74-106) mg/dL Lactic Acid 1.2 (0.4-2.0) Calcium 9.8 (8.4-10.2) mg/dL Magnesium 1.8 (1.6-2.3) mg/dL Total Bilirubin 0.80 (0.2-1.3) mg/dL AST 34 (14-36) U/L ALT 16 (0-35) U/L Alkaline Phosphatase 78 (38-126) U/L Troponin I (0.000-0.034) ng/mL Serum Total Protein 8.0 (6.3-8.2) g/dL Albumin 4.8 (3.5-5.0) g/dL Urine Color (YELLOW) Urine Appearance (CLEAR) Urine pH (5-6) Ur Specific [place] (1.005-1.025) Urine Protein (Negative) Urine Ketones (NEGATIVE) Urine Blood (0-5) Roger/ul Urine Nitrite (NEGATIVE) Urine Bilirubin (NEGATIVE) Urine Urobilinogen (0-1) mg/dL Ur Leukocyte Esterase (NEGATIVE) Urine WBC (Auto) (0-5) /HPF Urine RBC (Auto) (0-2) /HPF U Hyaline Cast (Auto) (0-2) /LPF U Epithel Cells (Auto) (FEW) /HPF Urine Bacteria (Auto) (NEGATIVE) /HPF Urine Mucus (Auto) (NEGATIVE) /HPF Urine Culture Reflexed (NO) Urine Glucose (NEGATIVE) mg/dL Urine Opiates Level (NEGATIVE) Ur Methadone (NEGATIVE) Urine Barbiturates (NEGATIVE) Ur Phencyclidine (PCP) (NEGATIVE) Urine Amphetamine (NEGATIVE) U Benzodiazepine Level (NEGATIVE) Urine Cocaine (NEGATIVE) Urine Marijuana (THC) (NEGATIVE) Ethyl Alcohol < 10 (0-10) mg/dL SARS-CoV-2 (PCR) (NEGATIVE) - Progress Progress: unchanged Progress Note: 01/05/21 18:51 55-year-old is evaluated for intermittent episodes of confusion since yesterday. She does not have any focal neuro deficit other than confusion. I have obtained CT head without contrast which is negative for any acute intracranial findings. Normal white count, has a potassium of 2.9 for which she is getting replacement and a sodium of 128. She is given fluid bolus. Discussed with Dr. Lang and patient would be admitted. 01/05/21 19:59 I have obtained SOC neuro consult. Neurology think patient has multiple findings in the CT with a differential of press versus MS versus stroke. She is given aspirin. Recommended MRI and further work-up. No MRI services are available overnight here. I have called [facility] and they do not do MRI as well overnight with few exceptions. I have discussed with Dr. Rene, who recommended observation admission here and would do MRI and f urther work-up tomorrow. Discussed with .: Bon, Other Will see patient in: hospital (observation) Counseled pt/family regarding: diagnosis, rad results - Departure Departure Disposition: Observation Clinical Impression: Hyponatremia, Acute encephalopathy, Hypokalemia Condition: Stable Critical Care Time: Yes Critical Care Time(excluding separately billable procedures): Critical 30-74 mins
[2021-01-05] MEDS ORDERED: Sodium Chloride 0.9% 1000 ML 1,000 ML IV SCH (22:00)
[2021-01-05 22:41] LABS: Appearance SLIGHTLY CLOUDY (CLEAR); Bacteria RARE /HPF (NEGATIVE); Bilirubin NEGATIVE (NEGATIVE); Blood NEGATIVE Ery/ul (0-5); Epithelial Cells RARE /HPF (FEW); Glucose NEGATIVE (NEGATIVE); Ketones SMALL (NEGATIVE); Leukocyte Esterase TRACE (NEGATIVE); Mucus SLIGHT /HPF (NEGATIVE); Nitrite NEGATIVE (NEGATIVE); Protein,Urine Dip 30 (Negative); RBC 0-2 /HPF (0-2); Specific Gravity 1.016 (1.005-1.025); Urobilinogen 2 mg/dL (0-1)
[2021-01-05 22:53] LABS: Amphetamine,Urine NEGATIVE (NEGATIVE); Barbiturate,Urine NEGATIVE (NEGATIVE); Benzodiazepine,Urine NEGATIVE (NEGATIVE); Cocaine,Urine NEGATIVE (NEGATIVE); Methadone,Urine NEGATIVE (NEGATIVE); Opiate,Urine NEGATIVE (NEGATIVE); PCP,Urine NEGATIVE (NEGATIVE); THC,Urine NEGATIVE (NEGATIVE)
[2021-01-06] MEDS: Sodium Chloride 0.9% W/ 20 mEq KCl/LITER 1,000 ML IV SCH ×3 (01:00→23:35)
[2021-01-06 05:33] LABS: Absolute Neutrophil Ct (ANC) 4.68 (1.4-6.9); BASOPHIL % 0.5 % (0.0-0.4); Basophil (Absolute #) 0.04 (0-0.4); Eosinophil % 0.3 % (0.00-5.0); Eosinophil (Absolute #) 0.03 (0-0.5); Hematocrit 36.2 % (35-47); Hemoglobin 12.3 gm/dl (12.0-16.0); Lymphocyte (Absolute #) 3.09 (1.0-4.6); Lymphocytes % 35.6 % (24.0-44.0); Mean Corpuscular Hemoglobin 32.6 pg (26-32); Mean Platelet Volume 8.4 fl (7.5-11.0); Monocyte (Absolute #) 0.83 (0.0-1.3); Monocytes % 9.6 % (0.0-12.0); Platelet Count 311 K/mm3 (150-450); Red Blood Count 3.77 M/mm3 (4.1-5.4); Red Cell Distribution Width 13.2 % (11.5-14.0); White Blood Count 8.7 K/mm3 (4.0-10.5)
[2021-01-06 06:22] LABS: ALKALINE PHOSPHATASE 66 U/L (38-126); ANION GAP 15.3 MEQ/L (5-15); BLOOD UREA NITROGEN 14 mg/dL (7-17); CHLORIDE 101 mmol/L (98-107); Calcium 8.8 mg/dL (8.4-10.2); Carbon Dioxide 20 mmol/L (22-30); Creatinine 1 0.58 mg/dL (0.52-1.04); EST GLOMERULAR FILTRATION RATE > 60.0 ML/MIN; Glucose 88 mg/dL (74-106); Potassium 3.9 mmol/L (3.5-5.1); SGOT/AST 29 U/L (14-36); SGPT/ALT 14 U/L (0-35); SODIUM 133 mmol/L (137-145); Total Protein 6.7 g/dL (6.3-8.2)
--- NOTE | 2021-01-06 08:45 | XRAY ---
Indication: Confusion. Comparison: January 01, 2021. Portable chest remains hyperinflated with left hilar/left base calcified granulomas. New tiny left effusion/hemothorax. Remaining heart and lungs unremarkable. Bony thorax again demonstrates osteopenia and multiple left rib fractures.
--- NOTE | 2021-01-06 08:48 | XRAY ---
Indication: Confusion. Multiple contiguous axial images obtained through the head without contrast. Comparison: None Age-appropriate global atrophy and moderate periventricular degenerative micro-ischemia bilaterally. No acute intracranial hemorrhage, abnormal extra-axial fluid collection, or mass effect. Fourth ventricle is midline without hydrocephalus. Bony calvarium intact. Visualized paranasal sinuses and mastoid air cells are clear. Impression: Nonacute senile brain.
[2021-01-06] MEDS ORDERED: NON-FORMULARY ITEM (Ondansetron Hcl [Zofran] 4 MG) PO PRN (09:33)
[2021-01-06] MEDS ORDERED: ZOFRAN ODT 4 MG PO PRN (09:45)
[2021-01-06] MEDS ORDERED: PROTONIX 40 MG IV IV SCH (10:00)
[2021-01-06] MEDS ORDERED: NON-FORMULARY ITEM (Meloxicam [Mobic] 15 MG) PO SCH (10:00)
[2021-01-06] MEDS ORDERED: NON-FORMULARY ITEM (Nabumetone [Relafen] 500 MG) PO SCH (10:00)
[2021-01-06] MEDS: PLAVIX 75 MG Tablet PO SCH ×2 (10:05→10:31)
[2021-01-06] MEDS: MELOXICAM PO SCH ×2 (10:05→10:31)
[2021-01-06] MEDS: Protonix 40MG Tablet PO SCH ×2 (10:05→10:31)
[2021-01-06] MEDS: Zestril 10 MG PO SCH ×2 (10:05→10:32)
[2021-01-06] MEDS: ECOTRIN 81 MG PO SCH ×2 (10:05→10:30)
[2021-01-06] MEDS: Toprol Xl 50 MG PO SCH ×2 (10:05→10:31)
[2021-01-06] MEDS: Zanaflex 4 MG PO SCH ×2 (10:07→10:32)
[2021-01-06] MEDS: XANAX 1 MG PO SCH ×2 (10:08→10:32)
--- NOTE | 2021-01-06 11:08 | PCM.HP ---
History of Present Illness - Chief Complaint Chief Complaint: confusion for 1-2 days History of Present Illness: is a 55 year old female.with history of hypertension, hyperlipidemia, CAD, anxiety sent in ER from primary care office with chief complaint of confusion. As per patient/daughter and PCP patient has been confused off and on since yesterday, staring blankly and have episodes when she is not answering questions appropriately no difficulty walking. No speech or visual disturbance. No focal numbness tingling or weakness patient was recently seen in the ER with hyponatremia. Denies any chest pain palpitations or shortness of breath. During my evaluation patient is awake alert but not fully oriented but follows all the commands. No obvious focal neuro deficit noted - Review of Systems Constitutional: Lethargy, Weakness, No Fever, No Chills Eyes: No Symptoms Ears, Nose, & Throat: No Symptoms Respiratory: No Cough, No Short Of Breath Cardiac: No Chest Pain, No Edema, No Syncope Abdominal/Gastrointestinal: No Abdominal Pain, No Nausea, No Vomiting, No Diarrhea Genitourinary Symptoms: No Dysuria Musculoskeletal: No Back Pain, No Neck Pain Skin: No Rash Neurological: No Dizziness, No Focal Weakness, No Sensory Changes Psychological: No Symptoms Endocrine: No Symptoms Hematologic/Lymphatic: No Symptoms Immunological/Allergic: No Symptoms Medications & Allergies Home Medications: Home Medication List Aspirin EC 81 mg [Ecotrin 81 mg] 81 mg PO DAILY 07/22/20 [History Confirmed 01/05/21] Atorvastatin Calcium [Lipitor 40Mg] 40 mg PO HS 07/22/20 [History Confirmed 01/06/21] Clopidogrel Bisulfate 75 mg [PLAVIX 75 MG Tablet] 75 mg PO DAILY 07/22/20 [History Confirmed 01/05/21] Lisinopril 10 mg [Zestril 10 MG] 10 mg PO DAILY 07/22/20 [History Confirmed 01/05/21] PANTOPRAZOLE 40 mg Tablet [Protonix 40MG Tablet] 40 mg PO QAM 07/22/20 [History Confirmed 01/05/21] Tizanidine HCl 4 mg [Zanaflex 4 MG] 4 mg PO TID 07/22/20 [History Confirmed 01/05/21] Alprazolam [Xanax] 2 mg PO 0700,2200 01/01/21 [History Confirmed 01/06/21] Fluoxetine HCl [Prozac] 40 mg PO HS 01/01/21 [History Confirmed 01/06/21] Meloxicam [Mobic] 15 mg PO DAILY 01/01/21 [History Confirmed 01/05/21] Nabumetone [Relafen] 500 mg PO DAILY 01/01/21 [History Confirmed 01/05/21] Ondansetron HCl [Zofran] 4 mg PO TID PRN #10 tablet 01/01/21 [Rx Confirmed 01/05/21] Metoprolol Succinate 50 mg [Toprol Xl 50 MG] 50 mg PO DAILY 01/06/21 [History Confirmed 01/06/21] Allergies/Adverse Reactions: Allergies Allergy/AdvReac Type Severity Reaction Status Date / Time diazepam [From Valium] AdvReac Verified 01/01/21 16:46 - Past Medical History Past Medical History: Yes Neurological History: No Pertinent History ENT History: No Pertinent History Cardiac History: High Cholesterol, Hypertension Respiratory History: No Pertinent History Endocrine Medical History: No Pertinent History Musculoskelatal History: Arthritis, Osteoporosis GI Medical History: Diverticulitis, GERD History: No Pertinent History Pyscho-Social History: Depression Reproductive Disorders: No Pertinent History - Female History Are you now?: No - Past Surgical History Past Surgical History: Yes Neuro Surgical History: No Pertinent History Cardiac History: Cardiac Catheterization, Cardiac Stent Respiratory Surgery: No Pertinent History GI Surgical History: No Pertinent History Genitourinary Surgical Hx: No Pertinent History Female Surgical History: Section, Tubal Ligation Other Surgical History: Hinged Plate in Right Foot - Social History Smoking Status: Current every day smoker How long have you smoked: years Exposure to second hand smoke: No Alcohol: None, Occasionally Drug Use: none - Physical Exam Vital Signs: Vital Signs - 24 hr Temp Pulse Resp BP Pulse Ox 01/06/21 07:05 97.4 F 88 16 190/88 94 L 01/06/21 04:00 98.1 F 86 18 132/87 94 L 01/06/21 00:58 97 01/06/21 00:30 97.6 F 78 16 181/84 97 01/05/21 22:00 83 20 188/97 96 01/05/21 21:00 84 18 178/100 95 01/05/21 20:00 88 18 174/96 95 01/05/21 19:00 86 18 168/83 96 01/05/21 18:43 97.4 F 80 20 170/96 97 01/05/21 17:53 88 20 177/101 95 01/05/21 16:51 97.4 F 82 22 188/105 96 General Appearance: no apparent distress, alert Neurologic Exam: alert, oriented x 3, cooperative, normal mood/affect, nml cerebellar function, nml station & gait, sensation nml, No motor deficits Eye Exam: PERRL/EOMI, eyes nml inspection Ears, Nose, Throat Exam: normal ENT inspection, TMs normal, pharynx normal, moist mucous membranes Neck Exam: normal inspection, non-tender, supple, full range of motion Respiratory Exam: rhonchi, wheezing, No respiratory distress Cardiovascular Exam: regular rate/rhythm, normal heart sounds, normal peripheral pulses Gastrointestinal/Abdomen Exam: soft, normal bowel sounds, No tenderness, No mass Back Exam: normal inspection, normal range of motion, No CVA tenderness, No vertebral tenderness Extremity Exam: normal inspection, normal range of motion, pelvis stable Skin Exam: normal color, warm, dry, No rash Lymphatic Exam: No adenopathy Results - Labs Lab/Micro Results: Lab Results-Last 24 Hours 01/05/21 01/05/21 01/05/21 Range/Units 17:05 17:05 17:05 WBC 9.6 (4.0-10.5) K/mm3 RBC 4.15 (4.1-5.4) M/mm3 Hgb 13.5 (12.0-16.0) gm/dl Hct 39.1 (35-47) % MCV 94.2 (78-100) fl MCH 32.5 H (26-32) pg MCHC 34.5 (32-36) g/dl RDW 13.1 (11.5-14.0) % Plt Count 352 (150-450) K/mm3 MPV 8.5 (7.5-11.0) fl Gran % 59.7 (36.0-66.0) % Eos # (Auto) 0.02 (0-0.5) Absolute Lymphs (auto) 2.78 (1.0-4.6) Absolute Monos (auto) 1.05 (0.0-1.3) Lymphocytes % 28.9 (24.0-44.0) % Monocytes % 10.9 (0.0-12.0) % Eosinophils % 0.2 (0.00-5.0) % Basophils % 0.3 (0.0-0.4) % Absolute Granulocytes 5.75 (1.4-6.9) Basophils # 0.03 (0-0.4) Sodium 128 L (137-145) mmol/L Potassium 2.9 L* (3.5-5.1) mmol/L Chloride 88 L (98-107) mmol/L Carbon Dioxide 25 (22-30) mmol/L Anion Gap 18.0 H (5-15) MEQ/L BUN 21 H (7-17) mg/dL Creatinine 0.79 (0.52-1.04) mg/dL Estimated GFR > 60.0 ML/MIN Glucose 115 H (74-106) mg/dL POC Glucometer (74 to 106) mg/dL Lactic Acid 1.2 (0.4-2.0) Calcium 9.8 (8.4-10.2) mg/dL Magnesium 1.8 (1.6-2.3) mg/dL Total Bilirubin 0.80 (0.2-1.3) mg/dL AST 34 (14-36) U/L ALT 16 (0-35) U/L Alkaline Phosphatase 78 (38-126) U/L Troponin I (0.000-0.034) ng/mL Serum Total Protein 8.0 (6.3-8.2) g/dL Albumin 4.8 (3.5-5.0) g/dL Urine Color (YELLOW) Urine Appearance (CLEAR) Urine pH (5-6) Ur Specific Downs (1.005-1.025) Urine Protein (Negative) Urine Ketones (NEGATIVE) Urine Blood (0-5) Roger/ul Urine Nitrite (NEGATIVE) Urine Bilirubin (NEGATIVE) Urine Urobilinogen (0-1) mg/dL Ur Leukocyte Esterase (NEGATIVE) Urine WBC (Auto) (0-5) /HPF Urine RBC (Auto) (0-2) /HPF U Hyaline Cast (Auto) (0-2) /LPF U Epithel Cells (Auto) (FEW) /HPF Urine Bacteria (Auto) (NEGATIVE) /HPF Urine Mucus (Auto) (NEGATIVE) /HPF Urine Culture Reflexed (NO) Urine Glucose (NEGATIVE) mg/dL Urine Opiates Level (NEGATIVE) Ur Methadone (NEGATIVE) Urine Barbiturates (NEGATIVE) Ur Phencyclidine (PCP) (NEGATIVE) Urine Amphetamine (NEGATIVE) U Benzodiazepine Level (NEGATIVE) Urine Cocaine (NEGATIVE) Urine Marijuana (THC) (NEGATIVE) Ethyl Alcohol < 10 (0-10) mg/dL SARS-CoV-2 (PCR) (NEGATIVE) 01/05/21 01/05/21 01/05/21 Range/Units 17:05 19:50 20:40 WBC (4.0-10.5) K/mm3 RBC (4.1-5.4) M/mm3 Hgb (12.0-16.0) gm/dl Hct (35-47) % MCV (78-100) fl MCH (26-32) pg MCHC (32-36) g/dl RDW (11.5-14.0) % Plt Count (150-450) K/mm3 MPV (7.5-11.0) fl Gran % (36.0-66.0) % Eos # (Auto) (0-0.5) Absolute Lymphs (auto) (1.0-4.6) Absolute Monos (auto) (0.0-1.3) Lymphocytes % (24.0-44.0) % Monocytes % (0.0-12.0) % Eosinophils % (0.00-5.0) % Basophils % (0.0-0.4) % Absolute Granulocytes (1.4-6.9) Basophils # (0-0.4) Sodium (137-145) mmol/L Potassium (3.5-5.1) mmol/L Chloride (98-107) mmol/L Carbon Dioxide (22-30) mmol/L Anion Gap (5-15) MEQ/L BUN (7-17) mg/dL Creatinine (0.52-1.04) mg/dL Estimated GFR ML/MIN Glucose (74-106) mg/dL POC Glucometer (74 to 106) mg/dL Lactic Acid (0.4-2.0) Calcium (8.4-10.2) mg/dL Magnesium (1.6-2.3) mg/dL Total Bilirubin (0.2-1.3) mg/dL AST (14-36) U/L ALT (0-35) U/L Alkaline Phosphatase (38-126) U/L Troponin I 0.020 0.021 (0.000-0.034) ng/mL Serum Total Protein (6.3-8.2) g/dL Albumin (3.5-5.0) g/dL Urine Color (YELLOW) Urine Appearance (CLEAR) Urine pH (5-6) Ur Specific Downs (1.005-1.025) Urine Protein (Negative) Urine Ketones (NEGATIVE) Urine Blood (0-5) Roger/ul Urine Nitrite (NEGATIVE) Urine Bilirubin (NEGATIVE) Urine Urobilinogen (0-1) mg/dL Ur Leukocyte Esterase (NEGATIVE) Urine WBC (Auto) (0-5) /HPF Urine RBC (Auto) (0-2) /HPF U Hyaline Cast (Auto) (0-2) /LPF U Epithel Cells (Auto) (FEW) /HPF Urine Bacteria (Auto) (NEGATIVE) /HPF Urine Mucus (Auto) (NEGATIVE) /HPF Urine Culture Reflexed (NO) Urine Glucose (NEGATIVE) mg/dL Urine Opiates Level (NEGATIVE) Ur Methadone (NEGATIVE) Urine Barbiturates (NEGATIVE) Ur Phencyclidine (PCP) (NEGATIVE) Urine Amphetamine (NEGATIVE) U Benzodiazepine Level (NEGATIVE) Urine Cocaine (NEGATIVE) Urine Marijuana (THC) (NEGATIVE) Ethyl Alcohol (0-10) mg/dL SARS-CoV-2 (PCR) NEGATIVE (NEGATIVE) 01/05/21 01/05/21 01/05/21 Range/Units 22:33 22:33 23:30 WBC (4.0-10.5) K/mm3 RBC (4.1-5.4) M/mm3 Hgb (12.0-16.0) gm/dl Hct (35-47) % MCV (78-100) fl MCH (26-32) pg MCHC (32-36) g/dl RDW (11.5-14.0) % Plt Count (150-450) K/mm3 MPV (7.5-11.0) fl Gran % (36.0-66.0) % Eos # (Auto) (0-0.5) Absolute Lymphs (auto) (1.0-4.6) Absolute Monos (auto) (0.0-1.3) Lymphocytes % (24.0-44.0) % Monocytes % (0.0-12.0) % Eosinophils % (0.00-5.0) % Basophils % (0.0-0.4) % Absolute Granulocytes (1.4-6.9) Basophils # (0-0.4) Sodium (137-145) mmol/L Potassium (3.5-5.1) mmol/L Chloride (98-107) mmol/L Carbon Dioxide (22-30) mmol/L Anion Gap (5-15) MEQ/L BUN (7-17) mg/dL Creatinine (0.52-1.04) mg/dL Estimated GFR ML/MIN Glucose (74-106) mg/dL POC Glucometer (74 to 106) mg/dL Lactic Acid (0.4-2.0) Calcium (8.4-10.2) mg/dL Magnesium (1.6-2.3) mg/dL Total Bilirubin (0.2-1.3) mg/dL AST (14-36) U/L ALT (0-35) U/L Alkaline Phosphatase (38-126) U/L Troponin I 0.020 (0.000-0.034) ng/mL Serum Total Protein (6.3-8.2) g/dL Albumin (3.5-5.0) g/dL Urine Color YELLOW (YELLOW) Urine Appearance SLIGHTLY CLOUDY (CLEAR) Urine pH 5.0 (5-6) Ur Specific Downs 1.016 (1.005-1.025) Urine Protein 30 (Negative) Urine Ketones SMALL (NEGATIVE) Urine Blood NEGATIVE (0-5) Roger/ul Urine Nitrite NEGATIVE (NEGATIVE) Urine Bilirubin NEGATIVE (NEGATIVE) Urine Urobilinogen 2 (0-1) mg/dL Ur Leukocyte Esterase TRACE (NEGATIVE) Urine WBC (Auto) 6-10 (0-5) /HPF Urine RBC (Auto) 0-2 (0-2) /HPF U Hyaline Cast (Auto) 3-5 (0-2) /LPF U Epithel Cells (Auto) RARE (FEW) /HPF Urine Bacteria (Auto) RARE (NEGATIVE) /HPF Urine Mucus (Auto) SLIGHT (NEGATIVE) /HPF Urine Culture Reflexed YES (NO) Urine Glucose NEGATIVE (NEGATIVE) mg/dL Urine Opiates Level NEGATIVE (NEGATIVE) Ur Methadone NEGATIVE (NEGATIVE) Urine Barbiturates NEGATIVE (NEGATIVE) Ur Phencyclidine (PCP) NEGATIVE (NEGATIVE) Urine Amphetamine NEGATIVE (NEGATIVE) U Benzodiazepine Level NEGATIVE (NEGATIVE) Urine Cocaine NEGATIVE (NEGATIVE) Urine Marijuana (THC) NEGATIVE (NEGATIVE) Ethyl Alcohol (0-10) mg/dL SARS-CoV-2 (PCR) (NEGATIVE) 01/06/21 01/06/21 01/06/21 Range/Units 02:40 05:15 05:15 WBC 8.7 (4.0-10.5) K/mm3 RBC 3.77 L (4.1-5.4) M/mm3 Hgb 12.3 (12.0-16.0) gm/dl Hct 36.2 (35-47) % MCV 96.0 (78-100) fl MCH 32.6 H (26-32) pg MCHC 34.0 (32-36) g/dl RDW 13.2 (11.5-14.0) % Plt Count 311 (150-450) K/mm3 MPV 8.4 (7.5-11.0) fl Gran % 54.0 (36.0-66.0) % Eos # (Auto) 0.03 (0-0.5) Absolute Lymphs (auto) 3.09 (1.0-4.6) Absolute Monos (auto) 0.83 (0.0-1.3) Lymphocytes % 35.6 (24.0-44.0) % Monocytes % 9.6 (0.0-12.0) % Eosinophils % 0.3 (0.00-5.0) % Basophils % 0.5 (0.0-0.4) % Absolute Granulocytes 4.68 (1.4-6.9) Basophils # 0.04 (0-0.4) Sodium (137-145) mmol/L Potassium (3.5-5.1) mmol/L Chloride (98-107) mmol/L Carbon Dioxide (22-30) mmol/L Anion Gap (5-15) MEQ/L BUN (7-17) mg/dL Creatinine (0.52-1.04) mg/dL Estimated GFR ML/MIN Glucose (74-106) mg/dL POC Glucometer (74 to 106) mg/dL Lactic Acid (0.4-2.0) Calcium (8.4-10.2) mg/dL Magnesium (1.6-2.3) mg/dL Total Bilirubin (0.2-1.3) mg/dL AST (14-36) U/L ALT (0-35) U/L Alkaline Phosphatase (38-126) U/L Troponin I 0.017 0.016 (0.000-0.034) ng/mL Serum Total Protein (6.3-8.2) g/dL Albumin (3.5-5.0) g/dL Urine Color (YELLOW) Urine Appearance (CLEAR) Urine pH (5-6) Ur Specific Downs (1.005-1.025) Urine Protein (Negative) Urine Ketones (NEGATIVE) Urine Blood (0-5) Roger/ul Urine Nitrite (NEGATIVE) Urine Bilirubin (NEGATIVE) Urine Urobilinogen (0-1) mg/dL Ur Leukocyte Esterase (NEGATIVE) Urine WBC (Auto) (0-5) /HPF Urine RBC (Auto) (0-2) /HPF U Hyaline Cast (Auto) (0-2) /LPF U Epithel Cells (Auto) (FEW) /HPF Urine Bacteria (Auto) (NEGATIVE) /HPF Urine Mucus (Auto) (NEGATIVE) /HPF Urine Culture Reflexed (NO) Urine Glucose (NEGATIVE) mg/dL Urine Opiates Level (NEGATIVE) Ur Methadone (NEGATIVE) Urine Barbiturates (NEGATIVE) Ur Phencyclidine (PCP) (NEGATIVE) Urine Amphetamine (NEGATIVE) U Benzodiazepine Level (NEGATIVE) Urine Cocaine (NEGATIVE) Urine Marijuana (THC) (NEGATIVE) Ethyl Alcohol (0-10) mg/dL SARS-CoV-2 (PCR) (NEGATIVE) 01/06/21 01/06/21 Range/Units 05:15 06:54 WBC (4.0-10.5) K/mm3 RBC (4.1-5.4) M/mm3 Hgb (12.0-16.0) gm/dl Hct (35-47) % MCV (78-100) fl MCH (26-32) pg MCHC (32-36) g/dl RDW (11.5-14.0) % Plt Count (150-450) K/mm3 MPV (7.5-11.0) fl Gran % (36.0-66.0) % Eos # (Auto) (0-0.5) Absolute Lymphs (auto) (1.0-4.6) Absolute Monos (auto) (0.0-1.3) Lymphocytes % (24.0-44.0) % Monocytes % (0.0-12.0) % Eosinophils % (0.00-5.0) % Basophils % (0.0-0.4) % Absolute Granulocytes (1.4-6.9) Basophils # (0-0.4) Sodium 133 L (137-145) mmol/L Potassium 3.9 D (3.5-5.1) mmol/L Chloride 101 D (98-107) mmol/L Carbon Dioxide 20 L (22-30) mmol/L Anion Gap 15.3 H (5-15) MEQ/L BUN 14 (7-17) mg/dL Creatinine 0.58 (0.52-1.04) mg/dL Estimated GFR > 60.0 ML/MIN Glucose 88 (74-106) mg/dL POC Glucometer 84 (74 to 106) mg/dL Lactic Acid (0.4-2.0) Calcium 8.8 (8.4-10.2) mg/dL Magnesium (1.6-2.3) mg/dL Total Bilirubin 0.70 (0.2-1.3) mg/dL AST 29 (14-36) U/L ALT 14 (0-35) U/L Alkaline Phosphatase 66 (38-126) U/L Troponin I (0.000-0.034) ng/mL Serum Total Protein 6.7 (6.3-8.2) g/dL Albumin 4.0 (3.5-5.0) g/dL Urine Color (YELLOW) Urine Appearance (CLEAR) Urine pH (5-6) Ur Specific Downs (1.005-1.025) Urine Protein (Negative) Urine Ketones (NEGATIVE) Urine Blood (0-5) Roger/ul Urine Nitrite (NEGATIVE) Urine Bilirubin (NEGATIVE) Urine Urobilinogen (0-1) mg/dL Ur Leukocyte Esterase (NEGATIVE) Urine WBC (Auto) (0-5) /HPF Urine RBC (Auto) (0-2) /HPF U Hyaline Cast (Auto) (0-2) /LPF U Epithel Cells (Auto) (FEW) /HPF Urine Bacteria (Auto) (NEGATIVE) /HPF Urine Mucus (Auto) (NEGATIVE) /HPF Urine Culture Reflexed (NO) Urine Glucose (NEGATIVE) mg/dL Urine Opiates Level (NEGATIVE) Ur Methadone (NEGATIVE) Urine Barbiturates (NEGATIVE) Ur Phencyclidine (PCP) (NEGATIVE) Urine Amphetamine (NEGATIVE) U Benzodiazepine Level (NEGATIVE) Urine Cocaine (NEGATIVE) Urine Marijuana (THC) (NEGATIVE) Ethyl Alcohol (0-10) mg/dL SARS-CoV-2 (PCR) (NEGATIVE) Accuchecks Date 01/06/21 - Radiology Impressions Radiology Exams & Impressions: Radiology Procedures Category Date Time Status CHEST 1 VIEW (PORTABLE) Stat Exams 01/05/21 17:16 Completed HEAD WITHOUT CONTRAST [CT] Stat Exams 01/05/21 17:17 Completed MRI BRAIN W & W/O CONTRAST [MRI] Urgent Exams 01/06/21 08:46 Ordered Assessment/Plan (1) Acute encephalopathy Current Visit: Yes Status: Acute Assessment & Plan: Chief Complaint Diagnosis Acute encephalopathy Allergies Allergy/AdvReac Type Severity Reaction Status Date / Time diazepam [From Valium] AdvReac Verified 01/01/21 16:46 Vital Signs (Last 24 hours) Temp Pulse Resp BP Pulse Ox 01/06/21 07:05 97.4 F 88 16 190/88 94 L 01/06/21 04:00 98.1 F 86 18 132/87 94 L 01/06/21 00:58 97 01/06/21 00:30 97.6 F 78 16 181/84 97 01/05/21 22:00 83 20 188/97 96 01/05/21 21:00 84 18 178/100 95 01/05/21 20:00 88 18 174/96 95 01/05/21 19:00 86 18 168/83 96 01/05/21 18:43 97.4 F 80 20 170/96 97 01/05/21 17:53 88 20 177/101 95 01/05/21 16:51 97.4 F 82 22 188/105 96 Home Medications Medication Instructions Recorded Confirmed Last Taken Type Metoprolol Succinate 50 mg 50 mg PO DAILY 01/06/21 01/06/21 Unknown History [Toprol Xl 50 MG] Current Medications Generic Name Dose Route Start Last Admin Trade Name Freq PRN Reason Stop Dose Admin Alprazolam 2 mg 01/06/21 10:00 01/06/21 10:32 Xanax 1 Mg PO 02/05/21 09:59 Not Given 0700,2200 [facility] Aspirin 81 mg 01/06/21 10:00 01/06/21 10:30 Ecotrin 81 Mg PO 02/05/21 09:59 Not Given DAILY [facility] Clopidogrel Bisulfate 75 mg 01/06/21 10:00 01/06/21 10:31 Plavix 75 Mg Tablet PO 02/05/21 09:59 Not Given DAILY [facility] Fluoxetine HCl 40 mg 01/06/21 22:00 Prozac 20 Mg PO 02/05/21 21:59 HS [facility] Potassium Chloride/Sodium Chloride 1,000 mls @ 125 mls/hr 01/06/21 00:21 01/06/21 10:06 Sodium Chloride 0.9% W/ 20 Meq Kcl/Liter IV 02/05/21 00:20 125 mls/hr .Q8H [facility] Administration Lisinopril 10 mg 01/06/21 10:00 01/06/21 10:32 Zestril 10 Mg PO 02/05/21 09:59 Not Given DAILY [facility] Meloxicam 15 mg 01/06/21 10:00 01/06/21 10:31 Meloxicam PO 02/05/21 09:59 Not Given DAILY [facility] Metoprolol Succinate 50 mg 01/06/21 10:00 01/06/21 10:31 Toprol Xl 50 Mg PO 02/05/21 09:59 Not Given DAILY [facility] Ondansetron HCl 4 mg 01/06/21 09:45 Zofran Odt 4 Mg PO 02/05/21 09:44 TID PRN PRN NAUSEA/VOMITING Pantoprazole Sodium 40 mg 01/06/21 10:00 01/06/21 10:31 Protonix 40mg Tablet PO 02/05/21 09:59 Not Given QAM [facility] Simvastatin 40 mg 01/06/21 22:00 Zocor 20mg PO 02/05/21 21:59 HS [facility] Tizanidine HCl 4 mg 01/06/21 10:00 01/06/21 10:32 Zanaflex 4 Mg PO 02/05/21 09:59 Not Given TID [facility] Discontinued Medications Generic Name Dose Route Start Last Admin Trade Name Freq PRN Reason Stop Dose Admin Sodium Chloride 1,000 mls @ 999 mls/hr 01/05/21 17:16 01/05/21 19:37 Sodium Chloride 0.9% 1000 Ml IV 01/05/21 18:16 Infused .Q1H1M STA Infusion Potassium Chloride 20 meq in 100 mls @ 50 mls/hr 01/05/21 18:00 01/05/21 20:42 Potassium Chloride 20 Meq In Water 100ml IV 01/06/21 00:21 50 mls/hr Q2H [facility] Administration Sodium Chloride Confirm 01/05/21 18:25 Sodium Chloride 0.9% 1000 Ml Administered 01/05/21 18:26 Dose 1,000 mls @ ud .ROUTE .STK-MED ONE Sodium Chloride 1,000 mls @ 125 mls/hr 01/05/21 22:00 01/05/21 22:00 Sodium Chloride 0.9% 1000 Ml IV 02/04/21 21:59 125 mls/hr .Q8H [facility]IUS Administration Sodium Chloride Confirm 01/05/21 21:57 Sodium Chloride 0.9% 1000 Ml Administered 01/05/21 21:58 Dose 1,000 mls @ ud .ROUTE .STK-MED ONE Non-Formulary Medication 500 mg 01/06/21 10:00 Nabumetone [Relafen] PO 02/05/21 09:59 DAILY [facility] Pantoprazole Sodium 40 mg 01/06/21 10:00 Protonix 40 Mg Iv IV 02/05/21 09:59 [id number] [facility] Potassium Chloride 40 meq 01/05/21 17:57 01/05/21 18:36 Klor Con 10 Meq PO 01/05/21 17:58 40 meq STAT ONE Administration Potassium Chloride Confirm 01/05/21 18:25 Klor Con 10 Meq Administered 01/05/21 18:26 Dose 40 meq PO .STK-MED ONE Intake & Output (Last 24 hours) 01/03/21 01/04/21 01/05/21 01/06/21 11:59 11:59 11:59 11:59 Intake Total 549 Balance 549 Weight 56.7 kg Microbiology Results (Last 24 hours) 01/06/21 10:17 Urine, Indwelling Catheter Urine Culture - Pending 01/05/21 22:33 Urine, Void Urine Culture - Pending Laboratory Results (Last 24 hours) 01/06/21 01/06/21 01/06/21 06:54 05:15 05:15 WBC 8.7 RBC 3.77 L Hgb 12.3 Hct 36.2 MCV 96.0 MCH 32.6 H MCHC 34.0 RDW 13.2 Plt Count 311 MPV 8.4 Gran % 54.0 Eos # (Auto) 0.03 Absolute Lymphs (auto) 3.09 Absolute Monos (auto) 0.83 Lymphocytes % 35.6 Monocytes % 9.6 Eosinophils % 0.3 Basophils % 0.5 Absolute Granulocytes 4.68 Basophils # 0.04 Sodium 133 L Potassium 3.9 D Chloride 101 D Carbon Dioxide 20 L Anion Gap 15.3 H BUN 14 Creatinine 0.58 Estimated GFR > 60.0 Glucose 88 POC Glucometer 84 Lactic Acid Calcium 8.8 Magnesium Total Bilirubin 0.70 AST 29 ALT 14 Alkaline Phosphatase 66 Troponin I Serum Total Protein 6.7 Albumin 4.0 Urine Color Urine Appearance Urine pH Ur Specific Downs Urine Protein Urine Ketones Urine Blood Urine Nitrite Urine Bilirubin Urine Urobilinogen Ur Leukocyte Esterase Urine WBC (Auto) Urine RBC (Auto) U Hyaline Cast (Auto) U Epithel Cells (Auto) Urine Bacteria (Auto) Urine Mucus (Auto) Urine Culture Reflexed Urine Glucose Urine Opiates Level Ur Methadone Urine Barbiturates Ur Phencyclidine (PCP) Urine Amphetamine U Benzodiazepine Level Urine Cocaine Urine Marijuana (THC) Ethyl Alcohol SARS-CoV-2 (PCR) 01/06/21 01/06/21 01/05/21 05:15 02:40 23:30 WBC RBC Hgb Hct MCV MCH MCHC RDW Plt Count MPV Gran % Eos # (Auto) Absolute Lymphs (auto) Absolute Monos (auto) Lymphocytes % Monocytes % Eosinophils % Basophils % Absolute Granulocytes Basophils # Sodium Potassium Chloride Carbon Dioxide Anion Gap BUN Creatinine Estimated GFR Glucose POC Glucometer Lactic Acid Calcium Magnesium Total Bilirubin AST ALT Alkaline Phosphatase Troponin I 0.016 0.017 0.020 Serum Total Protein Albumin Urine Color Urine Appearance Urine pH Ur Specific Downs Urine Protein Urine Ketones Urine Blood Urine Nitrite Urine Bilirubin Urine Urobilinogen Ur Leukocyte Esterase Urine WBC (Auto) Urine RBC (Auto) U Hyaline Cast (Auto) U Epithel Cells (Auto) Urine Bacteria (Auto) Urine Mucus (Auto) Urine Culture Reflexed Urine Glucose Urine Opiates Level Ur Methadone Urine Barbiturates Ur Phencyclidine (PCP) Urine Amphetamine U Benzodiazepine Level Urine Cocaine Urine Marijuana (THC) Ethyl Alcohol SARS-CoV-2 (PCR) 01/05/21 01/05/21 01/05/21 22:33 22:33 20:40 WBC RBC Hgb Hct MCV MCH MCHC RDW Plt Count MPV Gran % Eos # (Auto) Absolute Lymphs (auto) Absolute Monos (auto) Lymphocytes % Monocytes % Eosinophils % Basophils % Absolute Granulocytes Basophils # Sodium Potassium Chloride Carbon Dioxide Anion Gap BUN Creatinine Estimated GFR Glucose POC Glucometer Lactic Acid Calcium Magnesium Total Bilirubin AST ALT Alkaline Phosphatase Troponin I Serum Total Protein Albumin Urine Color YELLOW Urine Appearance SLIGHTLY CLOUDY Urine pH 5.0 Ur Specific Downs 1.016 Urine Protein 30 Urine Ketones SMALL Urine Blood NEGATIVE Urine Nitrite NEGATIVE Urine Bilirubin NEGATIVE Urine Urobilinogen 2 Ur Leukocyte Esterase TRACE Urine WBC (Auto) 6-10 Urine RBC (Auto) 0-2 U Hyaline Cast (Auto) 3-5 U Epithel Cells (Auto) RARE Urine Bacteria (Auto) RARE Urine Mucus (Auto) SLIGHT Urine Culture Reflexed YES Urine Glucose NEGATIVE Urine Opiates Level NEGATIVE Ur Methadone NEGATIVE Urine Barbiturates NEGATIVE Ur Phencyclidine (PCP) NEGATIVE Urine Amphetamine NEGATIVE U Benzodiazepine Level NEGATIVE Urine Cocaine NEGATIVE Urine Marijuana (THC) NEGATIVE Ethyl Alcohol SARS-CoV-2 (PCR) NEGATIVE 01/05/21 01/05/21 01/05/21 19:50 17:05 17:05 WBC RBC Hgb Hct MCV MCH MCHC RDW Plt Count MPV Gran % Eos # (Auto) Absolute Lymphs (auto) Absolute Monos (auto) Lymphocytes % Monocytes % Eosinophils % Basophils % Absolute Granulocytes Basophils # Sodium 128 L Potassium 2.9 L* Chloride 88 L Carbon Dioxide 25 Anion Gap 18.0 H BUN 21 H Creatinine 0.79 Estimated GFR > 60.0 Glucose 115 H POC Glucometer Lactic Acid Calcium 9.8 Magnesium 1.8 Total Bilirubin 0.80 AST 34 ALT 16 Alkaline Phosphatase 78 Troponin I 0.021 0.020 Serum Total Protein 8.0 Albumin 4.8 Urine Color Urine Appearance Urine pH Ur Specific Downs Urine Protein Urine Ketones Urine Blood Urine Nitrite Urine Bilirubin Urine Urobilinogen Ur Leukocyte Esterase Urine WBC (Auto) Urine RBC (Auto) U Hyaline Cast (Auto) U Epithel Cells (Auto) Urine Bacteria (Auto) Urine Mucus (Auto) Urine Culture Reflexed Urine Glucose Urine Opiates Level Ur Methadone Urine Barbiturates Ur Phencyclidine (PCP) Urine Amphetamine U Benzodiazepine Level Urine Cocaine Urine Marijuana (THC) Ethyl Alcohol < 10 SARS-CoV-2 (PCR) 01/05/21 01/05/21 17:05 17:05 WBC 9.6 RBC 4.15 Hgb 13.5 Hct 39.1 MCV 94.2 MCH 32.5 H MCHC 34.5 RDW 13.1 Plt Count 352 MPV 8.5 Gran % 59.7 Eos # (Auto) 0.02 Absolute Lymphs (auto) 2.78 Absolute Monos (auto) 1.05 Lymphocytes % 28.9 Monocytes % 10.9 Eosinophils % 0.2 Basophils % 0.3 Absolute Granulocytes 5.75 Basophils # 0.03 Sodium Potassium Chloride Carbon Dioxide Anion Gap BUN Creatinine Estimated GFR Glucose POC Glucometer Lactic Acid 1.2 Calcium Magnesium Total Bilirubin AST ALT Alkaline Phosphatase Troponin I Serum Total Protein Albumin Urine Color Urine Appearance Urine pH Ur Specific Downs Urine Protein Urine Ketones Urine Blood Urine Nitrite Urine Bilirubin Urine Urobilinogen Ur Leukocyte Esterase Urine WBC (Auto) Urine RBC (Auto) U Hyaline Cast (Auto) U Epithel Cells (Auto) Urine Bacteria (Auto) Urine Mucus (Auto) Urine Culture Reflexed Urine Glucose Urine Opiates Level Ur Methadone Urine Barbiturates Ur Phencyclidine (PCP) Urine Amphetamine U Benzodiazepine Level Urine Cocaine Urine Marijuana (THC) Ethyl Alcohol SARS-CoV-2 (PCR) Orders (Last 24 hours) Category Date Time Status Up With Assistance ROUTINE Activity 01/06/21 00:21 Active Cath [Catheter-[place] [facility]] STAT Care 01/06/21 08:46 Active Catheter Care Record Q6H Care 01/06/21 08:47 Active Code Status Order ROUTINE Care 01/06/21 00:21 Active Fall Protocol Q1H Care 01/06/21 00:21 Active IV Care Q6H Care 01/06/21 00:21 Active Neuro Checks Q4H Care 01/06/21 00:21 Active POCT Glucose Check ACHS Care 01/06/21 00:[address] in Observation ROUTINE Care 01/06/21 00:21 Active Telemetry q4h Care 01/05/21 17:57 Completed Telemetry q4h Care 01/06/21 02:00 Active Consult Tele-Health [Tele-Health Consult] ROUTINE Cons 01/05/21 19:05 Completed House Regular Diet Diet 01/06/21 Breakfast Completed NPO Diet 01/06/21 10:19 Active CHEST 1 VIEW (PORTABLE) Stat Exams 01/05/21 17:16 Completed HEAD WITHOUT CONTRAST [CT] Stat Exams 01/05/21 17:17 Completed MRI BRAIN W & W/O CONTRAST [MRI] Urgent Exams 01/06/21 08:46 Ordered CBC W DIFF AM.LAB Lab 01/06/21 05:15 Completed CBC W DIFF Stat Lab 01/05/21 17:05 Completed CMP AM.LAB Lab 01/06/21 05:15 Completed CMP Stat Lab 01/05/21 17:05 Completed CULTURE,URINE Stat Lab 01/05/21 22:33 Received CULTURE,URINE Urgent Lab 01/06/21 10:17 Received ETHYL ALCOHOL Stat Lab 01/05/21 17:05 Completed Lactic Acid Stat Lab 01/05/21 17:05 Completed MAGNESIUM Stat Lab 01/05/21 17:05 Completed POCT GLUCOSE Stat Lab 01/06/21 06:54 Completed SARS-CoV-2 Xpert Express Routine Lab 01/05/21 20:40 Completed TROPONIN Q3H Lab 01/05/21 17:05 Completed TROPONIN Q3H Lab 01/05/21 19:50 Completed TROPONIN Q3H Lab 01/05/21 23:30 Completed TROPONIN Q3H Lab 01/06/21 02:40 Completed TROPONIN Q3H Lab 01/06/21 05:15 Completed UA W/RFX UR CULTURE Stat Lab 01/05/21 22:33 Completed Urine Triage Profile Stat Lab 01/05/21 22:33 Completed ALPRAZolam 1 MG [Xanax 1 mg] Med 01/06/21 10:00 Active 2 mg PO 0700,2200 Aspirin EC 81 mg [Ecotrin 81 mg] Med 01/06/21 10:00 Active 81 mg PO DAILY Clopidogrel Bisulfate 75 mg [PLAVIX 75 MG Tablet] Med 01/06/21 10:00 Active 75 mg PO DAILY Fluoxetine HCl 20 mg [Prozac 20 MG] Med 01/06/21 22:00 Active 40 mg PO HS Lisinopril 10 mg [Zestril 10 MG] Med 01/06/21 10:00 Active 10 mg PO DAILY Meloxicam Med 01/06/21 10:00 Active 15 mg PO DAILY Metoprolol Succinate 50 mg [Toprol Xl 50 MG] Med 01/06/21 10:00 Active 50 mg PO DAILY NaCl 0.9% 1000 ml + KCl 20 Meq [Sodium Chloride 0.9% W/ Med 01/06/21 00:21 Active 20 mEq KCl/LITER] 1,000 ml IV 125 mls/hr NaCl 0.9% 1000 ml [Sodium Chloride 0.9% 1000 ML] 1,000 Med 01/05/21 18:25 Discontinued ml .ROUTE UD NaCl 0.9% 1000 ml [Sodium Chloride 0.9% 1000 ML] 1,000 Med 01/05/21 21:57 Discontinued ml .ROUTE UD NaCl 0.9% 1000 ml [Sodium Chloride 0.9% 1000 ML] 1,000 Med 01/05/21 22:00 Discontinued ml IV 125 mls/hr NaCl 0.9% 1000 ml [Sodium Chloride 0.9% 1000 ML] 1,000 Med 01/05/21 17:16 Discontinued ml IV 999 mls/hr Nabumetone [Relafen] Med 01/06/21 10:00 Discontinued 500 mg PO DAILY Ondansetron ODT 4 MG [Zofran Odt 4 mg] Med 01/06/21 09:45 Active 4 mg PO TID PRN PRN PANTOPRAZOLE 40 mg Tablet [Protonix 40MG Tablet] Med 01/06/21 10:00 Active 40 mg PO QAM Pantoprazole 40 mg [Protonix 40 mg IV] Med 01/06/21 10:00 Discontinued 40 mg IV Q24H10 Potassium Chloride 10 Meq Tab* [Klor Con 10 MEQ] Med 01/05/21 18:25 Discontinued 40 meq PO .STK-MED ONE Potassium Chloride 10 Meq Tab* [Klor Con 10 MEQ] Med 01/05/21 17:57 Discontinued 40 meq PO STAT ONE Potassium Chloride 20Meq/100Ml [POTASSIUM CHLORIDE 20 Med 01/05/21 18:00 Discontinued mEq IN WATER 100ML] 20 meq in 100 ml IV Q2H Simvastatin 20Mg [Zocor 20Mg] Med 01/06/21 22:00 Active 40 mg PO HS Tizanidine HCl 4 mg [Zanaflex 4 MG] Med 01/06/21 10:00 Active [address] Eval & Treat (MD Order) .as ordered ST 01/06/21 10:17 Active Code(s): G93.40 - ENCEPHALOPATHY, UNSPECIFIED (2) Hypokalemia Current Visit: Yes Status: Acute Code(s): E87.6 - HYPOKALEMIA (3) Hyponatremia Current Visit: Yes Status: Acute Code(s): E87.1 - HYPO-OSMOLALITY AND HYPONATREMIA
[2021-01-06] MEDS ORDERED: Vistaril 50 MG/ML IM SCH (12:00)
[2021-01-06] MEDS ORDERED: PHARMACY DOSING REQUEST MC ONE (12:05)
--- NOTE | 2021-01-06 12:19 | XRAY ---
Indication: CVA. Confusion. Attempted MRI brain performed. Patient uncooperative and unable to hold still for the exam. Only axial T2, diffusion, ADC, and sagittal FLAIR images obtained. Comparison: None Several images/sequences are slightly degraded by motion artifact. There is age-appropriate global atrophy with moderate periventricular degenerative micro-ischemia signal bilaterally. Similar minimal degenerative micro-ischemia signal seen in the rao. No abnormal extra-axial fluid collection or mass effect. Diffusion images are negative for large focus of restricted signal. Fourth ventricle is midline without hydrocephalus. 7/8 cranial nerve complex bilaterally symmetric. Normal flow void signal within the major interest was circulation. Normal appearing craniocervical junction and sella turcica. Left maxillary sinus demonstrates mild mucosal thickening with small fluid leveling. Impression: Incomplete and limited MRI brain without contrast exam as detailed. Atrophy and degenerative micro-ischemia within normal limits for patient's age. Grossly negative for evolving large vessel territorial stroke. Incidental left maxillary sinus disease.
[2021-01-06] MEDS: LOPRESSOR 5 MG/5 ML INJECTION IV SCH ×2 (13:37→19:59)
[2021-01-06] MEDS: Zyprexa Zydis 5 MG PO SCH ×2 (14:12→23:35)
[2021-01-06] MEDS: THIAMINE IV SCH (15:34)
[2021-01-06] MEDS: [UNRECOGNIZED DRUG - OTHER] IV SCH (15:34)
[2021-01-06] MEDS: Vistaril 50 MG/ML IM SCH ×3 (16:05→23:37)
[2021-01-06] MEDS ORDERED: ZOCOR 20MG PO SCH (22:00)
[2021-01-06] MEDS ORDERED: Prozac 20 MG PO SCH (22:00)
[2021-01-06] MEDS ORDERED: ALPRAZOLAM 2 MG PO SCH (22:00)
[2021-01-06] MEDS ORDERED: NON-FORMULARY ITEM (Fluoxetine Hcl [Prozac] 40 MG) PO SCH (22:00)
[2021-01-06] MEDS ORDERED: LIPITOR 40MG PO SCH (22:00)
[2021-01-07] MEDS: Vistaril 50 MG/ML IM SCH ×5 (03:35→20:19)
[2021-01-07] MEDS: LOPRESSOR 5 MG/5 ML INJECTION IV SCH ×3 (07:35→21:42)
[2021-01-07] MEDS ORDERED: PHARMACY DOSING REQUEST MC ONE (09:02)
[2021-01-07] MEDS ORDERED: VASOTEC I.V. 2.5 MG IV PRN (09:11)
[2021-01-07] MEDS: Zyprexa Zydis 5 MG PO SCH ×2 (09:30→21:42)
[2021-01-07] MEDS: Sodium Chloride 0.9% W/ 20 mEq KCl/LITER 1,000 ML IV SCH (09:39)
[2021-01-07 09:41] LABS: Absolute Neutrophil Ct (ANC) 4.77 (1.4-6.9); BASOPHIL % 0.5 % (0.0-0.4); Basophil (Absolute #) 0.05 (0-0.4); Eosinophil % 0.3 % (0.00-5.0); Eosinophil (Absolute #) 0.03 (0-0.5); Hematocrit 41.1 % (35-47); Hemoglobin 13.5 gm/dl (12.0-16.0); Lymphocyte (Absolute #) 4.08 (1.0-4.6); Lymphocytes % 40.8 % (24.0-44.0); Mean Cell Volume 98.6 fl (78-100); Mean Corpuscular Hemoglobin 32.4 pg (26-32); Mean Corpuscular Hgb Concent. 32.8 g/dl (32-36); Mean Platelet Volume 8.6 fl (7.5-11.0); Monocyte (Absolute #) 1.06 (0.0-1.3); Monocytes % 10.6 % (0.0-12.0); Neutrophil % 47.8 % (36.0-66.0); Platelet Count 315 K/mm3 (150-450); Red Blood Count 4.17 M/mm3 (4.1-5.4); Red Cell Distribution Width 13.6 % (11.5-14.0)
[2021-01-07] MEDS ORDERED: LOPRESSOR 5 MG/5 ML INJECTION IV ONE (09:45)
[2021-01-07 09:48] LABS: ALBUMIN 4.4 g/dL (3.5-5.0); ALKALINE PHOSPHATASE 71 U/L (38-126); ANION GAP 19.1 MEQ/L (5-15); BLOOD UREA NITROGEN 10 mg/dL (7-17); CHLORIDE 100 mmol/L (98-107); Calcium 9.4 mg/dL (8.4-10.2); Carbon Dioxide 20 mmol/L (22-30); Creatinine 1 0.62 mg/dL (0.52-1.04); EST GLOMERULAR FILTRATION RATE > 60.0 ML/MIN; Glucose 77 mg/dL (74-106); MAGNESIUM 1.5 mg/dL (1.6-2.3); Potassium 3.6 mmol/L (3.5-5.1); SGOT/AST 45 U/L (14-36); SGPT/ALT 15 U/L (0-35); SODIUM 135 mmol/L (137-145); Total Protein 7.2 g/dL (6.3-8.2)
[2021-01-07] MEDS ORDERED: Sodium Chloride 0.9% W/ 20 mEq KCl/LITER 1,000 ML IV SCH (12:30)
[2021-01-07] MEDS ORDERED: Miscellaneous Medication Order MC ONE (12:30)
[2021-01-07] MEDS ORDERED: MEDICATION INTERVENTION MC ONE (13:00)
[2021-01-07] MEDS ORDERED: Zanaflex 4 MG PO SCH (15:00)
[2021-01-07] MEDS ORDERED: ZOFRAN ODT 4 MG PO SCH (15:00)
[2021-01-07] MEDS ORDERED: ZOFRAN ODT 4 MG PO PRN (15:27)
[2021-01-07] MEDS ORDERED: Zanaflex 4 MG PO PRN (15:28)
--- NOTE | 2021-01-07 19:10 | PCM.NOTE ---
Date and Time: 01/07/211906 Subjective Assessment: doing much better - Review of Systems Constitutional: No Fever, No Chills Eyes: No Symptoms Ears, Nose, & Throat: No Symptoms Respiratory: No Cough, No Short Of Breath Cardiac: No Chest Pain, No Edema, No Syncope Abdominal/Gastrointestinal: No Abdominal Pain, No Nausea, No Vomiting, No Diarrhea Genitourinary Symptoms: No Dysuria Musculoskeletal: No Back Pain, No Neck Pain Skin: No Rash Neurological: No Dizziness, No Focal Weakness, No Sensory Changes Psychological: No Symptoms Endocrine: No Symptoms Hematologic/Lymphatic: No Symptoms Immunological/Allergic: No Symptoms Objective Exam General Appearance: no apparent distress, alert Neurologic Exam: alert, oriented x 3, cooperative, normal mood/affect, nml cerebellar function, sensation nml, No motor deficits Skin Exam: normal color, warm, dry Eye Exam: PERRL, EOMI, eyes nml inspection Ears, Nose, Throat Exam: normal ENT inspection, pharynx normal, moist mucous membranes Neck Exam: normal inspection, non-tender, supple, full range of motion Respiratory Exam: normal breath sounds, lungs clear, No respiratory distress Cardiovascular Exam: regular rate/rhythm, normal heart sounds Gastrointestinal/Abdomen Exam: soft, No tenderness, No mass Extremity Exam: normal inspection, normal range of motion Back Exam: normal inspection, normal range of motion, No CVA tenderness, No vertebral tenderness Pelvic Exam: deferred Rectal Exam: deferred OBJECTIVE DATA Vital Signs: Vital Signs - 24 hr Temp Pulse Resp BP Pulse Ox 01/07/21 17:54 98.9 F 105 H 20 198/89 94 L 01/07/21 14:00 98.0 F 102 H 20 170/97 93 L 01/07/21 10:37 184/95 01/07/21 08:33 187/95 01/07/21 07:45 22 217/105 01/07/21 04:01 182/105 01/07/21 03:52 114 H 30 H 93 L 01/06/21 23:54 111 H 25 H 164/97 95 01/06/21 19:49 98.1 F 120 H 24 93 L Pain Assessment - Last Documented Pain Intensity 0 Intake and Output: Intake & Output 01/05/21 01/06/21 01/07/21 01/08/21 11:59 11:59 11:59 11:59 Intake Total 549 3902 1175 Output Total 2450 1000 Balance 549 302 175 Weight 56.7 kg Lab Results: Lab Results-Last 24 Hours 01/06/21 01/06/21 01/07/21 Range/Units 05:00 23:58 05:36 WBC (4.0-10.5) K/mm3 RBC (4.1-5.4) M/mm3 Hgb (12.0-16.0) gm/dl Hct (35-47) % MCV (78-100) fl MCH (26-32) pg MCHC (32-36) g/dl RDW (11.5-14.0) % Plt Count (150-450) K/mm3 MPV (7.5-11.0) fl Gran % (36.0-66.0) % Eos # (Auto) (0-0.5) Absolute Lymphs (auto) (1.0-4.6) Absolute Monos (auto) (0.0-1.3) Lymphocytes % (24.0-44.0) % Monocytes % (0.0-12.0) % Eosinophils % (0.00-5.0) % Basophils % (0.0-0.4) % Absolute Granulocytes (1.4-6.9) Basophils # (0-0.4) Sodium (137-145) mmol/L Potassium (3.5-5.1) mmol/L Chloride (98-107) mmol/L Carbon Dioxide (22-30) mmol/L Anion Gap (5-15) MEQ/L BUN (7-17) mg/dL Creatinine (0.52-1.04) mg/dL Estimated GFR ML/MIN Glucose (74-106) mg/dL POC Glucometer 78 75 (74 to 106) mg/dL Hemoglobin A1c 5.11 (4.5-6.0) % Calcium (8.4-10.2) mg/dL Magnesium (1.6-2.3) mg/dL Total Bilirubin (0.2-1.3) mg/dL AST (14-36) U/L ALT (0-35) U/L Alkaline Phosphatase (38-126) U/L Serum Total Protein (6.3-8.2) g/dL Albumin (3.5-5.0) g/dL 01/07/21 01/07/21 01/07/21 Range/Units 09:00 09:00 11:32 WBC 10.0 (4.0-10.5) K/mm3 RBC 4.17 (4.1-5.4) M/mm3 Hgb 13.5 (12.0-16.0) gm/dl Hct 41.1 (35-47) % MCV 98.6 (78-100) fl MCH 32.4 H (26-32) pg MCHC 32.8 (32-36) g/dl RDW 13.6 (11.5-14.0) % Plt Count 315 (150-450) K/mm3 MPV 8.6 (7.5-11.0) fl Gran % 47.8 (36.0-66.0) % Eos # (Auto) 0.03 (0-0.5) Absolute Lymphs (auto) 4.08 (1.0-4.6) Absolute Monos (auto) 1.06 (0.0-1.3) Lymphocytes % 40.8 (24.0-44.0) % Monocytes % 10.6 (0.0-12.0) % Eosinophils % 0.3 (0.00-5.0) % Basophils % 0.5 (0.0-0.4) % Absolute Granulocytes 4.77 (1.4-6.9) Basophils # 0.05 (0-0.4) Sodium 135 L (137-145) mmol/L Potassium 3.6 (3.5-5.1) mmol/L Chloride 100 (98-107) mmol/L Carbon Dioxide 20 L (22-30) mmol/L Anion Gap 19.1 H (5-15) MEQ/L BUN 10 (7-17) mg/dL Creatinine 0.62 (0.52-1.04) mg/dL Estimated GFR > 60.0 ML/MIN Glucose 77 (74-106) mg/dL POC Glucometer 136 H (74 to 106) mg/dL Hemoglobin A1c (4.5-6.0) % Calcium 9.4 (8.4-10.2) mg/dL Magnesium 1.5 L (1.6-2.3) mg/dL Total Bilirubin 0.90 (0.2-1.3) mg/dL AST 45 H (14-36) U/L ALT 15 (0-35) U/L Alkaline Phosphatase 71 (38-126) U/L Serum Total Protein 7.2 (6.3-8.2) g/dL Albumin 4.4 (3.5-5.0) g/dL Radiology Exams: Radiology Procedures Category Date Time Status MRI BRAIN W/O CONTRAST [MRI] Urgent Exams 01/06/21 08:46 Completed Multi-Disciplinary Progress Notes: Multi-Disciplinary Progress Notes 01/07/21 09:47 Case Management Note by Funmilayo Alfaro S/W PATIENT THIS AM- SHE IS ALERT AND FOLLOWING CONVERSATION APPROPRIATELY. HOWEVER-SHE WASN'T CLEAR ON WHY SHE WAS HERE AT [facility]. SHE REPORTS SHE LIVES WITH HER DAUGHTER. SHE REPORTS THIS IS A GOOD RELATIONSHIP. SHE WAS ASKED IF THERE WAS ANY ABUSE OF ANY SORT- SHE DENIED ANY ABUSE. SHE STATED HER DAUGHTER TAKES GOOD CARE OF HER. SHE REPORTS FEELING SAFE AT HOME AND PLANS TO RETURN THERE AT TIME OF DC Initialized on 01/07/21 09:47 - END OF NOTE Assessment/Plan (1) Acute encephalopathy Current Visit: Yes Status: Resolved Assessment & Plan: improved Code(s): G93.40 - ENCEPHALOPATHY, UNSPECIFIED (2) Hypokalemia Current Visit: Yes Status: Acute Code(s): E87.6 - HYPOKALEMIA (3) Hyponatremia Current Visit: Yes Status: Acute Code(s): E87.1 - HYPO-OSMOLALITY AND HYPONATREMIA (4) Xanax use disorder, moderate, dependence Current Visit: Yes Status: Acute Code(s): F13.20 - SEDATIVE, HYPNOTIC OR ANXIOLYTIC DEPENDENCE, UNCOMPLICATED (5) Alcohol abuse Current Visit: Yes Status: Chronic Code(s): F10.10 - ALCOHOL ABUSE, UNCOMPLICATED
[2021-01-07] MEDS: [UNRECOGNIZED DRUG - OTHER] IV SCH (20:12)
[2021-01-07] MEDS: THIAMINE IV SCH (20:12)
[2021-01-07] MEDS ORDERED: LIPITOR 40MG PO SCH (22:00)
[2021-01-07] MEDS ORDERED: ZOCOR 20MG PO SCH (22:00)
[2021-01-07] MEDS ORDERED: Prozac 20 MG PO SCH (22:00)
[2021-01-08] MEDS: Vistaril 50 MG/ML IM SCH ×3 (00:27→09:50)
[2021-01-08 08:18] LABS: BASOPHIL % 0.5 % (0.0-0.4); Basophil (Absolute #) 0.05 (0-0.4); Eosinophil % 1.1 % (0.00-5.0); Eosinophil (Absolute #) 0.12 (0-0.5); Hemoglobin 12.9 gm/dl (12.0-16.0); Lymphocytes % 30.1 % (24.0-44.0); Mean Cell Volume 96.4 fl (78-100); Mean Corpuscular Hemoglobin 32.7 pg (26-32); Mean Corpuscular Hgb Concent. 33.9 g/dl (32-36); Mean Platelet Volume 8.3 fl (7.5-11.0); Monocyte (Absolute #) 0.87 (0.0-1.3); Monocytes % 8.2 % (0.0-12.0); Neutrophil % 60.1 % (36.0-66.0); Platelet Count 285 K/mm3 (150-450); Red Blood Count 3.94 M/mm3 (4.1-5.4); Red Cell Distribution Width 13.6 % (11.5-14.0); White Blood Count 10.6 K/mm3 (4.0-10.5)
[2021-01-08 08:33] LABS: ALKALINE PHOSPHATASE 61 U/L (38-126); ANION GAP 16.1 MEQ/L (5-15); BLOOD UREA NITROGEN 10 mg/dL (7-17); CHLORIDE 100 mmol/L (98-107); Carbon Dioxide 23 mmol/L (22-30); Creatinine 1 0.67 mg/dL (0.52-1.04); EST GLOMERULAR FILTRATION RATE > 60.0 ML/MIN; Glucose 98 mg/dL (74-106); MAGNESIUM 1.3 mg/dL (1.6-2.3); Potassium 3.2 mmol/L (3.5-5.1); SGOT/AST 42 U/L (14-36); SGPT/ALT 16 U/L (0-35); SODIUM 135 mmol/L (137-145); Total Protein 6.6 g/dL (6.3-8.2)
[2021-01-08] MEDS ORDERED: PHARMACY DOSING REQUEST MC ONE (09:28)
[2021-01-08] MEDS: [UNRECOGNIZED DRUG - OTHER] IV SCH (09:40)
[2021-01-08] MEDS: THIAMINE IV SCH (09:40)
[2021-01-08] MEDS ORDERED: POTASSIUM CHLORIDE IV SCH ×4 (10:00)
[2021-01-08] MEDS ORDERED: Zestril 10 MG PO SCH (10:00)
[2021-01-08] MEDS ORDERED: ECOTRIN 81 MG PO SCH (10:00)
[2021-01-08] MEDS ORDERED: Toprol Xl 50 MG PO SCH (10:00)
[2021-01-08] MEDS ORDERED: MAGNESIUM SULFATE IV SCH ×4 (10:00)
[2021-01-08] MEDS ORDERED: Protonix 40MG Tablet PO SCH (10:00)
[2021-01-08] MEDS ORDERED: [UNRECOGNIZED DRUG - OTHER] IV SCH ×4 (10:00)
[2021-01-08] MEDS ORDERED: MELOXICAM PO SCH (10:00)
[2021-01-08] MEDS ORDERED: PLAVIX 75 MG Tablet PO SCH (10:00)
[2021-01-08] MEDS: Zyprexa Zydis 5 MG PO SCH (10:56)
[2021-01-08] MEDS ORDERED: ATARAX 25 MG PO PRN (10:57)
[2021-01-08 11:53] VITALS: O2SAT 94
--- NOTE | 2021-01-08 15:06 | PCM.DS ---
Discharge Summary Date of Admission: 01/06/21 00:12 Admitting Physician: CHRIS ROBERT Consults: Consults on Case 01/05/21 19:05 Consult Tele-Health [Tele-Health Consult] ROUTINE Primary Care Provider: CHRIS ROBERT Allergies Allergies diazepam [From Valium] Adverse Reaction (Verified 01/01/21 16:46) "It makes me mean" Hospital Summary - Hospital Course Hospital Course: Chief Complaint Diagnosis confusion for 1-2 days Allergies Allergy/AdvReac Type Severity Reaction Status Date / Time diazepam [From Valium] AdvReac Verified 01/01/21 16:46 Vital Signs (Last 24 hours) Temp Pulse Resp BP Pulse Ox 01/08/21 11:00 98.8 F 88 22 159/98 94 L 01/08/21 07:00 98.2 F 101 H 24 122/77 91 L 01/08/21 03:00 97.9 F 100 H 25 H 151/91 94 L 01/07/21 23:46 98.2 F 99 H 16 149/94 95 01/07/21 22:15 92 H 144/88 01/07/21 21:35 106 H 169/89 01/07/21 19:51 98.3 F 112 H 20 167/94 95 01/07/21 17:54 98.9 F 105 H 20 198/89 94 L Home Medications Medication Instructions Recorded Confirmed Last Taken Type Metoprolol Succinate 50 mg 50 mg PO DAILY 01/06/21 01/06/21 Unknown History [Toprol Xl 50 MG] Hydroxyzine HCl 25 mg [Atarax 25 mg PO QID PRN PRN 30 Days 01/08/21 Unknown Rx 25 mg] tablet Current Medications Generic Name Dose Route Start Last Admin Trade Name Freq PRN Reason Stop Dose Admin Aspirin 81 mg 01/08/21 10:00 01/08/21 09:51 Ecotrin 81 Mg PO 02/07/21 09:59 81 mg DAILY DARIUS Administration Clopidogrel Bisulfate 75 mg 01/08/21 10:00 01/08/21 09:50 Plavix 75 Mg Tablet PO 02/07/21 09:59 75 mg DAILY DARIUS Administration Enalaprilat 1.25 mg 01/07/21 09:11 01/07/21 18:07 Vasotec I.V. 2.5 Mg IV 02/06/21 09:10 1.25 mg Q6H PRN PRN Administration HYPERTENSION Fluoxetine HCl 40 mg 01/07/21 22:00 01/07/21 21:42 Prozac 20 Mg PO 02/06/21 21:59 40 mg HS DARIUS Administration Hydroxyzine HCl 25 mg 01/08/21 10:57 01/08/21 13:04 Atarax 25 Mg PO 02/07/21 10:56 25 mg QID PRN PRN Administration ANXIETY Thiamine HCl 200 mg/ 1,002.5 mls @ 50 mls/hr 01/06/21 15:00 01/08/21 09:40 Cyanocobalamin 500 mcg/ IV 02/05/21 14:59 Not Given Potassium Chloride/Sodium .Q20H3M DARIUS Chloride Potassium Chloride/Sodium Chloride 1,000 mls @ 50 mls/hr 01/07/21 12:30 Sodium Chloride 0.9% W/ 20 Meq Kcl/Liter IV 02/06/21 12:29 .Q20H DARIUS Lisinopril 10 mg 01/08/21 10:00 01/08/21 09:50 Zestril 10 Mg PO 02/07/21 09:59 10 mg DAILY DARIUS Administration Meloxicam 15 mg 01/08/21 10:00 01/08/21 09:50 Meloxicam PO 02/07/21 09:59 15 mg DAILY DARIUS Administration Metoprolol Succinate 50 mg 01/08/21 10:00 01/08/21 09:50 Toprol Xl 50 Mg PO 02/07/21 09:59 50 mg DAILY DARIUS Administration Olanzapine 5 mg 01/06/21 13:00 01/08/21 10:56 Zyprexa Zydis 5 Mg PO 02/05/21 12:59 5 mg BID DARIUS Administration Ondansetron HCl 4 mg 01/07/21 15:27 Zofran Odt 4 Mg PO 02/06/21 15:24 TID PRN PRN NAUSEA/VOMITING Pantoprazole Sodium 40 mg 01/08/21 10:00 01/08/21 09:50 Protonix 40mg Tablet PO 02/07/21 09:59 40 mg DAILY DARIUS Administration Simvastatin 40 mg 01/07/21 22:00 01/07/21 21:42 Zocor 20mg PO 02/06/21 21:59 40 mg HS DARIUS Administration Tizanidine HCl 4 mg 01/07/21 15:28 Zanaflex 4 Mg PO 02/06/21 15:29 TID PRN PRN MUSCLE SPASMS Discontinued Medications Generic Name Dose Route Start Last Admin Trade Name Freq PRN Reason Stop Dose Admin Alprazolam 2 mg 01/06/21 10:00 01/06/21 10:32 Xanax 1 Mg PO 02/05/21 09:59 Not Given 0700,2200 DARIUS Aspirin 81 mg 01/06/21 10:00 01/06/21 10:30 Ecotrin 81 Mg PO 02/05/21 09:59 Not Given DAILY DARIUS Clopidogrel Bisulfate 75 mg 01/06/21 10:00 01/06/21 10:31 Plavix 75 Mg Tablet PO 02/05/21 09:59 Not Given DAILY DARIUS Fluoxetine HCl 40 mg 01/06/21 22:00 Prozac 20 Mg PO 02/05/21 21:59 HS DARIUS Hydroxyzine HCl 25 mg 01/06/21 12:00 01/06/21 12:46 Vistaril 50 Mg/Ml IM 02/05/21 11:59 25 mg Q6H DARIUS Administration Hydroxyzine HCl 25 mg 01/06/21 16:00 01/08/21 09:50 Vistaril 50 Mg/Ml IM 02/05/21 15:59 25 mg Q4H DARIUS Administration Sodium Chloride 1,000 mls @ 999 mls/hr 01/05/21 17:16 01/05/21 19:37 Sodium Chloride 0.9% 1000 Ml IV 01/05/21 18:16 Infused .Q1H1M STA Infusion Potassium Chloride 20 meq in 100 mls @ 50 mls/hr 01/05/21 18:00 01/05/21 20:42 Potassium Chloride 20 Meq In Water 100ml IV 01/06/21 00:21 50 mls/hr Q2H DARIUS Administration Sodium Chloride Confirm 01/05/21 18:25 Sodium Chloride 0.9% 1000 Ml Administered 01/05/21 18:26 Dose 1,000 mls @ ud .ROUTE .STK-MED ONE Sodium Chloride 1,000 mls @ 125 mls/hr 01/05/21 22:00 01/05/21 22:00 Sodium Chloride 0.9% 1000 Ml IV 02/04/21 21:59 125 mls/hr .Q8H DARIUS Administration Potassium Chloride/Sodium Chloride 1,000 mls @ 50 mls/hr 01/06/21 00:21 01/07/21 09:39 Sodium Chloride 0.9% W/ 20 Meq Kcl/Liter IV 02/05/21 00:20 125 mls/hr .Q20H DARIUS Administration Sodium Chloride Confirm 01/05/21 21:57 Sodium Chloride 0.9% 1000 Ml Administered 01/05/21 21:58 Dose 1,000 mls @ ud .ROUTE .STK-MED ONE Potassium Chloride 40 meq/ 276 mls @ 69 mls/hr 01/08/21 10:00 01/08/21 09:51 Magnesium Sulfate 2 gm/ IV 01/08/21 13:59 69 mls/hr Lidocaine HCl 2 ml/ Sodium 1000 DARIUS Administration Chloride Lisinopril 10 mg 01/06/21 10:00 01/06/21 10:32 Zestril 10 Mg PO 02/05/21 09:59 Not Given DAILY DARIUS Meloxicam 15 mg 01/06/21 10:00 01/06/21 10:31 Meloxicam PO 02/05/21 09:59 Not Given DAILY DARIUS Metoprolol Succinate 50 mg 01/06/21 10:00 01/06/21 10:31 Toprol Xl 50 Mg PO 02/05/21 09:59 Not Given DAILY DARIUS Metoprolol Tartrate 2.5 mg 01/06/21 12:45 01/07/21 07:35 Lopressor 5 Mg/5 Ml Injection IV 02/05/21 12:44 2.5 mg Q12HT DARIUS Administration Metoprolol Tartrate 5 mg 01/07/21 10:00 01/07/21 21:42 Lopressor 5 Mg/5 Ml Injection IV 02/05/21 12:44 5 mg Q12HT DARIUS Administration Metoprolol Tartrate 2.5 mg 01/07/21 09:45 01/07/21 09:33 Lopressor 5 Mg/5 Ml Injection IV 01/07/21 09:46 2.5 mg NOW ONE Administration Miscellaneous Information 0 each 01/07/21 13:00 01/07/21 15:40 Medication Intervention 01/07/21 13:01 Not Given .RN TO CHECK WITH PT ONE Non-Formulary Medication 500 mg 01/06/21 10:00 Nabumetone [Relafen] PO 02/05/21 09:59 DAILY DARIUS Non-Formulary Medication 1 each 01/06/21 12:05 01/06/21 13:38 Pharmacy Dosing Request 01/06/21 12:06 1 each STAT ONE Administration Non-Formulary Medication 1 each 01/07/21 09:02 01/07/21 09:28 Pharmacy Dosing Request 01/07/21 09:03 1 each STAT ONE Administration Non-Formulary Medication 1 each 01/08/21 09:28 01/08/21 10:01 Pharmacy Dosing Request 01/08/21 09:29 1 each STAT ONE Administration Ondansetron HCl 4 mg 01/06/21 09:45 Zofran Odt 4 Mg PO 02/05/21 09:44 TID PRN PRN NAUSEA/VOMITING Ondansetron HCl 4 mg 01/07/21 15:00 01/07/21 15:41 Zofran Odt 4 Mg PO 02/06/21 14:59 Not Given TID DARIUS Pantoprazole Sodium 40 mg 01/06/21 10:00 Protonix 40 Mg Iv IV 02/05/21 09:59 Q24H10 DARIUS Pantoprazole Sodium 40 mg 01/06/21 10:00 01/06/21 10:31 Protonix 40mg Tablet PO 02/05/21 09:59 Not Given QAM DARIUS Potassium Chloride 40 meq 01/05/21 17:57 01/05/21 18:36 Klor Con 10 Meq PO 01/05/21 17:58 40 meq STAT ONE Administration Potassium Chloride Confirm 01/05/21 18:25 Klor Con 10 Meq Administered 01/05/21 18:26 Dose 40 meq PO .STK-MED ONE Simvastatin 40 mg 01/06/21 22:00 Zocor 20mg PO 02/05/21 21:59 HS DARIUS Tizanidine HCl 4 mg 01/06/21 10:00 01/06/21 10:32 Zanaflex 4 Mg PO 02/05/21 09:59 Not Given TID DARIUS Tizanidine HCl 4 mg 01/07/21 15:00 01/07/21 15:41 Zanaflex 4 Mg PO 02/06/21 14:59 Not Given TID DARIUS Intake & Output (Last 24 hours) 01/06/21 01/07/21 01/08/21 01/09/21 11:59 11:59 11:59 11:59 Intake Total 549 2752 2058 240 Output Total 2450 1650 Balance 549 302 408 240 Weight 56.7 kg 56.7 kg Microbiology Results (Last 24 hours) 01/06/21 10:17 Urine, Indwelling Catheter Urine Culture - Final NO GROWTH Laboratory Results (Last 24 hours) 01/08/21 01/08/21 08:12 08:12 WBC 10.6 H RBC 3.94 L Hgb 12.9 Hct 38.0 MCV 96.4 MCH 32.7 H MCHC 33.9 RDW 13.6 Plt Count 285 MPV 8.3 Gran % 60.1 Eos # (Auto) 0.12 Absolute Lymphs (auto) 3.20 Absolute Monos (auto) 0.87 Lymphocytes % 30.1 Monocytes % 8.2 Eosinophils % 1.1 Basophils % 0.5 Absolute Granulocytes 6.40 Basophils # 0.05 Sodium 135 L Potassium 3.2 L Chloride 100 Carbon Dioxide 23 Anion Gap 16.1 H BUN 10 Creatinine 0.67 Estimated GFR > 60.0 Glucose 98 Calcium 9.0 Magnesium 1.3 L Total Bilirubin 0.90 AST 42 H ALT 16 Alkaline Phosphatase 61 Serum Total Protein 6.6 Albumin 4.0 Orders (Last 24 hours) Category Date Time Status Discontinue Gutierrez Cath ROUTINE Care 01/08/21 11:00 Active Order K Level 2 hours post-inf 2 HRS POST K-INFUSED Care 01/08/21 16:00 Active Discharge Routine Discharge 01/08/21 Ordered Discharge/Telephone Order Routine Discharge 01/08/21 Active CBC W DIFF Stat Lab 01/08/21 08:12 Completed CMP Stat Lab 01/08/21 08:12 Completed MAG [MAGNESIUM] Routine Lab 01/08/21 16:00 Ordered MAG [MAGNESIUM] Stat Lab 01/08/21 08:12 Completed Potassium (Lab Test) [Potassium] Routine Lab 01/08/21 16:00 Ordered Aspirin EC 81 mg [Ecotrin 81 mg] Med 01/08/21 10:00 Active 81 mg PO DAILY Clopidogrel Bisulfate 75 mg [PLAVIX 75 MG Tablet] Med 01/08/21 10:00 Active 75 mg PO DAILY Fluoxetine HCl 20 mg [Prozac 20 MG] Med 01/07/21 22:00 Active 40 mg PO HS Hydroxyzine HCl 25 mg [Atarax 25 mg] Med 01/08/21 10:57 Active 25 mg PO QID PRN PRN Lisinopril 10 mg [Zestril 10 MG] Med 01/08/21 10:00 Active 10 mg PO DAILY Meloxicam Med 01/08/21 10:00 Active 15 mg PO DAILY Metoprolol Succinate 50 mg [Toprol Xl 50 MG] Med 01/08/21 10:00 Active 50 mg PO DAILY Ondansetron ODT 4 MG [Zofran Odt 4 mg] Med 01/07/21 15:00 Discontinued 4 mg PO TID Ondansetron ODT 4 MG [Zofran Odt 4 mg] Med 01/07/21 15:27 Active 4 mg PO TID PRN PRN PANTOPRAZOLE 40 mg Tablet [Protonix 40MG Tablet] Med 01/08/21 10:00 Acti ve 40 mg PO DAILY Pharmacy Dosing Request Med 01/08/21 09:28 Discontinued 1 each STAT ONE Potassium Cl 40 Meq/20 ml Vial [Potassium Chloride 40 Med 01/08/21 10:00 Discontinued MEQ/20 ML VIAL] 40 meq Magnesium Sulfate 1 gm/2 ml [Magnesium Sulfate 1 GM/ 2 ML VIAL] 2 gm Lidocaine HCl 1% 20 ml Mdv [Xylocaine 1% HCl 20 ml Mdv] 2 ml NaCl 0.9% 250 ml [Sodium Chloride 0.9% 250 ML] 250 ml IV 1000 Simvastatin 20Mg [Zocor 20Mg] Med 01/07/21 22:00 Active 40 mg PO HS Tizanidine HCl 4 mg [Zanaflex 4 MG] Med 01/07/21 15:00 Discontinued 4 mg PO TID Tizanidine HCl 4 mg [Zanaflex 4 MG] Med 01/07/21 15:28 Active 4 mg PO TID PRN PRN Patient Care Notes (Last 24 hours) 01/08/21 11:34 Case Management Note by Funmilayo Alfaro S/W PATIENT- SHE NOW PLANS TO RETURN HOME WITH HER SON AT TIME OF DC. SHE WAS OFFERED C- REFUSED. SHE DENIES ANY NEW NEEDS FOR DC AT THIS TIME Initialized on 01/08/21 11:34 - END OF NOTE 01/08/21 10:50 Nursing Note by Kelly Cordon Removed patient's F/C. Patient tolerated it well. Initialized on 01/08/21 10:50 - END OF NOTE 01/08/21 10:47 Nursing Note by Kelly Cordon Called Dr. Robert about patient's IM hydroxyzine switching to PO, and discontinuing F/C. Dr. Robert gave orders for both. Initialized on 01/08/21 10:47 - END OF NOTE 01/08/21 09:29 Nursing Note by Kelly Cordon Notified Dr. Robert patient's k+ is 3.2 and magnesium 1.3. Gave orders for pharmacy to dose K+/Mag bouls Initialized on 01/08/21 09:29 - END OF NOTE 01/07/21 22:13 Nursing Note by Danni Vickers BP 169/89 HR 106 prior to lopressor. BP 30 min after IV dose BP 144/88 HR 92 Initialized on 01/07/21 22:13 - END OF NOTE 01/07/21 15:42 Nursing Note by Kelly Cordon WENT TO PASS 1500 ZOFRAN AND TIZANIDINE. PATIENT STATES SHE ONLY TAKES THOSE WHEN SHE NEEDS THEM. RESCHEDULED FOR PRN PER DR. ROBERT Initialized on 01/07/21 15:42 - END OF NOTE 01/07/21 15:41 Nursing Note by Kelly Cordon SPOKE WITH PATIENT'S DAUGHTER ON THE PHONE AND ASKED TO BRING PATIENT HOME MEDICATION RAFLEN IN. Initialized on 01/07/21 15:41 - END OF NOTE - Vitals & Intake/Output Vital Signs: Vital Signs Temperature 98.8 F 01/08/21 11:00 Pulse Rate 88 01/08/21 11:00 Respiratory Rate 22 01/08/21 11:00 Blood Pressure 159/98 01/08/21 11:00 O2 Sat by Pulse Oximetry 94 L 01/08/21 11:00 Intake & Output: Intake & Output 01/06/21 01/07/21 01/08/21 01/09/21 11:59 11:59 11:59 11:59 Intake Total 549 2462 2056 240 Output Total 2452 1650 Balance 549 302 408 240 Weight 56.7 kg 56.7 kg - Lab Result Diagrams: 01/08/21 08:12 01/08/21 08:12 Lab Results-Last 24 Hrs: Lab Results-Last 24 Hours 01/08/21 01/08/21 Range/Units 08:12 08:12 WBC 10.6 H (4.0-10.5) K/mm3 RBC 3.94 L (4.1-5.4) M/mm3 Hgb 12.9 (12.0-16.0) gm/dl Hct 38.0 (35-47) % MCV 96.4 (78-100) fl MCH 32.7 H (26-32) pg MCHC 33.9 (32-36) g/dl RDW 13.6 (11.5-14.0) % Plt Count 285 (150-450) K/mm3 MPV 8.3 (7.5-11.0) fl Gran % 60.1 (36.0-66.0) % Eos # (Auto) 0.12 (0-0.5) Absolute Lymphs (auto) 3.20 (1.0-4.6) Absolute Monos (auto) 0.87 (0.0-1.3) Lymphocytes % 30.1 (24.0-44.0) % Monocytes % 8.2 (0.0-12.0) % Eosinophils % 1.1 (0.00-5.0) % Basophils % 0.5 (0.0-0.4) % Absolute Granulocytes 6.40 (1.4-6.9) Basophils # 0.05 (0-0.4) Sodium 135 L (137-145) mmol/L Potassium 3.2 L (3.5-5.1) mmol/L Chloride 100 (98-107) mmol/L Carbon Dioxide 23 (22-30) mmol/L Anion Gap 16.1 H (5-15) MEQ/L BUN 10 (7-17) mg/dL Creatinine 0.67 (0.52-1.04) mg/dL Estimated GFR > 60.0 ML/MIN Glucose 98 (74-106) mg/dL Calcium 9.0 (8.4-10.2) mg/dL Magnesium 1.3 L (1.6-2.3) mg/dL Total Bilirubin 0.90 (0.2-1.3) mg/dL AST 42 H (14-36) U/L ALT 16 (0-35) U/L Alkaline Phosphatase 61 (38-126) U/L Serum Total Protein 6.6 (6.3-8.2) g/dL Albumin 4.0 (3.5-5.0) g/dL Micro Results-Entire Visit: Microbiology 01/06/21 10:17 Urine Culture - Final Urine, Indwelling Catheter NO GROWTH 01/05/21 22:33 Urine Culture - Final Urine, Void MIXED ADRIANA; 3 OR MORE TYPES. NO PREDOMINANT ORGANISM. NO FURTHER WORKUP. PLEASE RESUBMIT IF CLINICALLY INDICATED. - Procedures and Test Procedures and Tests throughout Hospitalization: Therapy Orders & Screens 01/06/21 10:17 ST Eval & Treat ( Order) .as ordered Comment: Physician Instructions: Reason For Exam: Evaluate: Yes Treat: Yes Reason for Eval: FAILED STROKE PROTCOL BEDSIDE SWALLOW EVAL Diagnosis: Acute encephalopathy Discharge Exam General Appearance: no apparent distress, alert Neurologic Exam: alert, oriented x 3, cooperative, normal mood/affect, nml cerebellar function, sensation nml, No motor deficits Eye Exam: PERRL, EOMI, eyes nml inspection Ears, Nose, Throat Exam: normal ENT inspection, pharynx normal, moist mucous m embranes Neck Exam: normal inspection, non-tender, supple, full range of motion Respiratory Exam: normal breath sounds, lungs clear, No respiratory distress Cardiovascular Exam: regular rate/rhythm, normal heart sounds Gastrointestinal/Abdomen Exam: soft, No tenderness, No mass Pelvic Exam: deferred Rectal Exam: deferred Back Exam: normal inspection, normal range of motion, No CVA tenderness, No vertebral tenderness Extremity Exam: normal inspection, normal range of motion Skin Exam: normal color, warm, dry Final Diagnosis/Problem List - Final Discharge Diagnosis/Problem (1) Acute encephalopathy Current Visit: Yes Status: Resolved Code(s): G93.40 - ENCEPHALOPATHY, UNSPECIFIED (2) Hypokalemia Current Visit: Yes Status: Acute Code(s): E87.6 - HYPOKALEMIA (3) Hyponatremia Current Visit: Yes Status: Resolved Code(s): E87.1 - HYPO-OSMOLALITY AND HYPONATREMIA (4) Xanax use disorder, moderate, dependence Current Visit: Yes Status: Resolved Code(s): F13.20 - SEDATIVE, HYPNOTIC OR ANXIOLYTIC DEPENDENCE, UNCOMPLICATED (5) Alcohol abuse Current Visit: Yes Status: Chronic Code(s): F10.10 - ALCOHOL ABUSE, UNCOMPLICATED - Discharge Discharge Date: 01/08/21 Disposition: Home, Self-Care Condition: Stable Prescriptions: New Hydroxyzine HCl 25 mg [Atarax 25 mg] 25 mg PO QID PRN PRN 30 Days tablet PRN Reason: Anxiety Continue Clopidogrel Bisulfate 75 mg [PLAVIX 75 MG Tablet] 75 mg PO DAILY PANTOPRAZOLE 40 mg Tablet [Protonix 40MG Tablet] 40 mg PO QAM Tizanidine HCl 4 mg [Zanaflex 4 MG] 4 mg PO TID Atorvastatin Calcium [Lipitor 40Mg] 40 mg PO HS Lisinopril 10 mg [Zestril 10 MG] 10 mg PO DAILY Aspirin EC 81 mg [Ecotrin 81 mg] 81 mg PO DAILY Nabumetone [Relafen] 500 mg PO DAILY Meloxicam [Mobic] 15 mg PO DAILY Fluoxetine HCl [Prozac] 40 mg PO HS Ondansetron HCl [Zofran] 4 mg PO TID PRN #10 tablet PRN Reason: Nausea/Vomiting Metoprolol Succinate 50 mg [Toprol Xl 50 MG] 50 mg PO DAILY Instructions: Prescription Drug Withdrawal (DC) Additional Instructions: MAKE SURE THAT WHEN YOU GO TO YOUR FOLLOW UP APPOINTMENT YOU BRING YOUR MEDICATIONS KEEP YOUR FOLLOW UP APPOINTMENT Follow up with: CHRIS ROBERT MD [Primary Care Provider] - 01/14/21 11:15 am Forms: Discharge Instructions
[2021-01-08 16:57] VITALS: BP 142/78; PULSE 87
== END 2021-01-08 17:05 | disposition home or self-care (01) ==
LOC: ED 16:51 → MED SURG 01-06 00:12
PROVIDERS: ADMIT General Practice; ATTEND General Practice
DX: G93.40 Encephalopathy, unspecified (principal); I10 Essential (primary) hypertension; E78.5 Hyperlipidemia, unspecified; Z79.899 Other long term (current) drug therapy; Z79.01 Long term (current) use of anticoagulants; E78.00 Pure hypercholesterolemia, unspecified; E87.6 Hypokalemia; E87.1 Hypo-osmolality and hyponatremia; F13.20 Sedative, hypnotic or anxiolytic dependence, uncomplicated; F10.10 Alcohol abuse, uncomplicated; Z20.828 Contact with and (suspected) exposure to other viral communicable diseases
CPT/HCPCS: 36415; 70450; 70551; 71045; 80053; 80307; 81001; 82947; 83036; 83605; 83735; 84132; 84484; 85025; 87086; 92610; 96360; 96365; 96366; 99284; 99291; G0480; U0003; 93268; J3410; J3420; J3475; J3480; Q3014; A9270-GY; G0378

== ENCOUNTER 2021-01-15 00:11 | Observation (INO) | payer MEDICARE ==
[2021-01-15] MEDS ORDERED: LIQUI-CHAR 50 GM PO ONE (00:20)
[2021-01-15] MEDS ORDERED: Zofran 4 MG/2 ML VIAL IV ONE (00:20)
--- NOTE | 2021-01-15 00:26 | ERPHSYRPT ---
- History of Present Illness Time Seen by Provider: 01/15/21 00:20 Source: patient, EMS Exam Limitations: clinical condition Physician History: 55 years old female with history of hypertension, hyperlipidemia, tobacco abuse, COPD, anxiety/depression presented in the ER after she had a overdose on Xanax. Patient took 15 pills of 2 mg Xanax around 2310 in front of family. Patient denies any chest pain palpitations or shortness of breath. Patient reports she is done with her life and does not want to live anymore. Denies any homicidal ideations. Does not see much hope in life. Patient is awake alert but not fully oriented and getting sleepy. Timing/Duration: hour(s) (1), sudden Severity of Symptoms-Max: mild Severity of Symptoms-Current: mild Context related to: living circumstances Suicidal thoughts: attempt, ingestion Associated Symptoms: depressed Allergies/Adverse Reactions: diazepam [From Valium] Adverse Reaction (Verified 01/01/21 16:46) "It makes me mean" Home Medications: Aspirin EC 81 mg [Ecotrin 81 mg] 81 mg PO DAILY 07/22/20 [History] Atorvastatin Calcium [Lipitor 40Mg] 40 mg PO HS 07/22/20 [History] Clopidogrel Bisulfate 75 mg [PLAVIX 75 MG Tablet] 75 mg PO DAILY 07/22/20 [History] Lisinopril 10 mg [Zestril 10 MG] 10 mg PO DAILY 07/22/20 [History] PANTOPRAZOLE 40 mg Tablet [Protonix 40MG Tablet] 40 mg PO QAM 07/22/20 [History] Tizanidine HCl 4 mg [Zanaflex 4 MG] 4 mg PO TID 07/22/20 [History] Fluoxetine HCl [Prozac] 40 mg PO HS 01/01/21 [History] Meloxicam [Mobic] 15 mg PO DAILY 01/01/21 [History] Nabumetone [Relafen] 500 mg PO DAILY 01/01/21 [History] Metoprolol Succinate 50 mg [Toprol Xl 50 MG] 50 mg PO DAILY 01/06/21 [History] Hx Tetanus, Diphtheria Vaccination/Date Given: Yes Hx Influenza Vaccination/Date Given: No Hx Pneumococcal Vaccination/Date Given: No Travel Risk - Vaccine Status Have you recieved a Covid-19 vaccination: No - Past Medical History Pertinent Past Medical History: Yes Neurological History: No Pertinent History ENT History: No Pertinent History Cardiac History: High Cholesterol, Hypertension Respiratory History: No Pertinent History Endocrine Medical History: No Pertinent History Musculoskeletal History: Arthritis, Osteoporosis GI Medical History: Diverticulitis, GERD History: No Pertinent History Psycho-Social History: Depression Female Reproductive Disorders: No Pertinent History - Past Surgical History Past Surgical History: Yes Neuro Surgical History: No Pertinent History Cardiac: Cardiac Catheterization, Cardiac Stent Respiratory: No Pertinent History Gastrointestinal: No Pertinent History Genitourinary: No Pertinent History Female Surgical History: Section, Tubal Ligation Other Surgical History: Hinged Plate in Right Foot - Social History Smoking Status: Current every day smoker How long have you smoked: years Exposure to second hand smoke: No Drug Use: none Patient Lives Alone: No - Review of Systems Constitutional: No Symptoms Eyes: No Symptoms Ears, Nose, & Throat: No Symptoms Respiratory: No Symptoms Cardiac: No Symptoms Abdominal/Gastrointestinal: No Symptoms Genitourinary Symptoms: No Symptoms Musculoskeletal: No Symptoms Psychological: Anxiety, Depression, Suicidal Ideations Endocrine: No Symptoms Hematologic/Lymphatic: No Symptoms Immunological/Allergic: No Symptoms - Nursing Vital Signs Nursing Vital Signs: Initial Vital Signs O2 Sat by Pulse Oximetry 96 01/15/21 00:25 Pain Scale Pain Intensity 0 - Physical Exam General Appearance: no apparent distress, alert Eyes, Ears, Nose, Throat Exam: normal ENT inspection, pharynx normal Neck Exam: normal inspection, non-tender, supple, full range of motion Respiratory Exam: wheezing, No chest tenderness Cardiovascular Exam: regular rate/rhythm, normal heart sounds Gastrointestinal/Abdominal Exam: soft, normal bowel sounds, No tenderness Extremities Exam: normal inspection, normal range of motion Current Suicidality: has suicide plan Neurological Exam: alert, 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, 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, depressed affect, No oriented x 3 Appearance: appropriate appearance, neat Behavior/Eye Contact/Speech: alert & cooperative Thoughts/Hallucinations: no apparent hallucination Skin Exam: normal color SpO2 Interpretation: normal SpO2: 96 O2 Delivery: Room Air - Course Nursing assessment & vital signs reviewed: Yes EKG Interpreted by Me: RATE (83), Sinus Rhythm, NORMAL AXIS, prolonged QT interval, NORMAL QRS Ordered Tests: Active Orders 24 hr Category Date Time Status 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 Care 01/15/21 00:21 Active EKG-ER Only STAT Care 01/15/21 00:20 Active IV Insertion STAT Care 01/15/21 00:20 Active NPO (ED) STAT Care 01/15/21 00:20 Active Oxygen-ED Only Nasal Cannula 2 lpm Care 01/15/21 00:20 Active POCT Glucose Check STAT Care 01/15/21 00:20 Active CHEST 1 VIEW (PORTABLE) Stat Exams 01/15/21 00:21 Taken ACETAMINOPHEN Stat Lab 01/15/21 01:00 Completed CBC W DIFF Stat Lab 01/15/21 01:00 Completed CK-Creatinine Phosphokinase Stat Lab 01/15/21 01:00 Completed CMP Stat Lab 01/15/21 01:00 Completed ETHYL ALCOHOL Stat Lab 01/15/21 01:00 Completed SALICYLATE Stat Lab 01/15/21 01:00 Completed TROPONIN Q3H Lab 01/15/21 01:00 Completed TROPONIN Q3H Lab 01/15/21 03:30 Ordered TROPONIN Q3H Lab 01/15/21 06:30 Ordered TROPONIN Q3H Lab 01/15/21 09:30 Ordered TROPONIN Q3H Lab 01/15/21 12:30 Ordered UA W/RFX UR CULTURE Stat Lab 01/15/21 00:21 Ordered Urine Triage Profile Stat Lab 01/15/21 00:21 Ordered Medication Summary Generic Name Dose Route Start Last Admin Trade Name Freq PRN Reason Stop Dose Admin Sodium Chloride 1,000 mls @ 125 mls/hr 01/15/21 00:30 01/15/21 01:05 Sodium Chloride 0.9% 1000 Ml IV 02/14/21 00:29 125 mls/hr .Q8H DARIUS Administration Potassium Chloride 20 meq in 100 mls @ 50 mls/hr 01/15/21 01:45 Potassium Chloride 20 Meq In Water 100ml IV 01/15/21 05:44 Q2H DARIUS Discontinued Medications Generic Name Dose Route Start Last Admin Trade Name Freq PRN Reason Stop Dose Admin Charcoal 50 g 01/15/21 00:20 01/15/21 01:05 Liqui-Lynda 50 Gm PO 01/15/21 00:21 50 g STAT ONE Administration Charcoal Confirm 01/15/21 01:00 Liqui-Lynda 50 Gm Administered 01/15/21 01:01 Dose 50 g .ROUTE .STK-MED ONE Magnesium Sulfate 2 gm 01/15/21 01:44 Magnesium Sulfate 1 Gm/2 Ml Vial IV 01/15/21 01:45 ONCE STA Ondansetron HCl 4 mg 01/15/21 00:20 01/15/21 01:05 Zofran 4 Mg/2 Ml Vial IV 01/15/21 00:21 4 mg STAT ONE Administration Ondansetron HCl Confirm 01/15/21 01:00 Zofran 4 Mg/2 Ml Vial Administered 01/15/21 01:01 Dose 4 mg .ROUTE .STK-MED ONE Potassium Chloride 40 meq 01/15/21 01:45 Klor Con 10 Meq PO 01/15/21 01:46 STAT ONE Lab/Rad Data: Laboratory Result Diagrams 01/15/21 01:00 01/15/21 01:00 Laboratory Results 01/15/21 01/15/21 01/15/21 Range/Units 01:00 01:00 01:00 WBC 8.5 (4.0-10.5) K/mm3 RBC 3.39 L (4.1-5.4) M/mm3 Hgb 11.1 L (12.0-16.0) gm/dl Hct 33.3 L (35-47) % MCV 98.2 (78-100) fl MCH 32.7 H (26-32) pg MCHC 33.3 (32-36) g/dl RDW 13.6 (11.5-14.0) % Plt Count 475 H (150-450) K/mm3 MPV 8.5 (7.5-11.0) fl Gran % 41.9 (36.0-66.0) % Eos # (Auto) 0.13 (0-0.5) Absolute Lymphs (auto) 3.86 (1.0-4.6) Absolute Monos (auto) 0.93 (0.0-1.3) Lymphocytes % 45.2 H (24.0-44.0) % Monocytes % 10.9 (0.0-12.0) % Eosinophils % 1.5 (0.00-5.0) % Basophils % 0.5 (0.0-0.4) % Absolute Granulocytes 3.58 (1.4-6.9) Basophils # 0.04 (0-0.4) Sodium 132 L (137-145) mmol/L Potassium 2.5 L* (3.5-5.1) mmol/L Chloride 95 L (98-107) mmol/L Carbon Dioxide 26 (22-30) mmol/L Anion Gap 13.4 (5-15) MEQ/L BUN 7 (7-17) mg/dL Creatinine 0.62 (0.52-1.04) mg/dL Estimated GFR > 60.0 ML/MIN Glucose 109 H (74-106) mg/dL Calcium 8.9 (8.4-10.2) mg/dL Total Bilirubin < 0.10 L (0.2-1.3) mg/dL AST 23 (14-36) U/L ALT 13 (0-35) U/L Alkaline Phosphatase 114 (38-126) U/L Creatine Kinase 82 (30-135) U/L Troponin I < 0.012 (0.000-0.034) ng/mL Serum Total Protein 6.3 (6.3-8.2) g/dL Albumin 3.7 (3.5-5.0) g/dL Salicylates < 1.0 L (2-20) mg/dL Acetaminophen < 10 L (10-30) ug/ml Ethyl Alcohol < 10 (0-10) mg/dL - Progress Progress: unchanged Progress Note: 01/15/21 01:48 55-year-old is evaluated for suicidal ideation with overdose on Xanax. Patient is awake alert but not fully oriented, mildly sleepy. Poison control is called, recommended supportive care and observation for 46 hours. She is given activated charcoal. EKG showed sinus rhythm with prolonged QT interval. Work- up showed potassium of 2.5, given oral and IV potassium along with 2 g of mag IV. I believe patient needs to be admitted for observation and once medically clear then will consult behavioral health. Discussed with , reviewed history, work-up and current management, agreed with observation admission. Discussed with : Bon Will see patient in: hospital (observation) Counseled pt/family regarding: lab results, diagnosis, rad results, smoking cessation - Departure Departure Disposition: Observation Clinical Impression: Hypokalemia, Suicidal ideation Drug overdose, intentional Qualifiers: Encounter type: initial encounter Qualified Code(s): T50.902A - Poisoning by unspecified drugs, medicaments and biological substances, intentional self-harm, initial encounter Condition: Stable Critical Care Time: Yes Critical Care Time(excluding separately billable procedures): Critical 30-74 mins Referrals: CHRIS ROBERT MD [Primary Care Provider] -
[2021-01-15] MEDS ORDERED: Sodium Chloride 0.9% 1000 ML 1,000 ML IV SCH (00:30)
[2021-01-15] MEDS ORDERED: Zofran 4 MG/2 ML VIAL ONE (01:00)
[2021-01-15] MEDS ORDERED: Sodium Chloride 0.9% 1000 ML 1,000 ML ONE (01:00)
[2021-01-15] MEDS ORDERED: LIQUI-CHAR 50 GM ONE (01:00)
[2021-01-15 01:13] LABS: Absolute Neutrophil Ct (ANC) 3.58 (1.4-6.9); BASOPHIL % 0.5 % (0.0-0.4); Basophil (Absolute #) 0.04 (0-0.4); Eosinophil % 1.5 % (0.00-5.0); Eosinophil (Absolute #) 0.13 (0-0.5); Hematocrit 33.3 % (35-47); Hemoglobin 11.1 gm/dl (12.0-16.0); Lymphocyte (Absolute #) 3.86 (1.0-4.6); Lymphocytes % 45.2 % (24.0-44.0); Mean Cell Volume 98.2 fl (78-100); Mean Corpuscular Hemoglobin 32.7 pg (26-32); Mean Corpuscular Hgb Concent. 33.3 g/dl (32-36); Mean Platelet Volume 8.5 fl (7.5-11.0); Monocyte (Absolute #) 0.93 (0.0-1.3); Monocytes % 10.9 % (0.0-12.0); Neutrophil % 41.9 % (36.0-66.0); Platelet Count 475 K/mm3 (150-450); Red Blood Count 3.39 M/mm3 (4.1-5.4); Red Cell Distribution Width 13.6 % (11.5-14.0); White Blood Count 8.5 K/mm3 (4.0-10.5)
[2021-01-15 01:28] LABS: ACETAMINOPHEN < 10 ug/ml (10-30); ALBUMIN 3.7 g/dL (3.5-5.0); ALKALINE PHOSPHATASE 114 U/L (38-126); ANION GAP 13.4 MEQ/L (5-15); BILIRUBIN,TOTAL < 0.10 mg/dL (0.2-1.3); BLOOD UREA NITROGEN 7 mg/dL (7-17); CHLORIDE 95 mmol/L (98-107); CK-Creatinine Phosphokinase 82 U/L (30-135); Calcium 8.9 mg/dL (8.4-10.2); Carbon Dioxide 26 mmol/L (22-30); Creatinine 1 0.62 mg/dL (0.52-1.04); EST GLOMERULAR FILTRATION RATE > 60.0 ML/MIN; ETHYL ALCOHOL < 10 mg/dL (0-10); Glucose 109 mg/dL (74-106); SALICYLATE < 1.0 mg/dL (2-20); SGOT/AST 23 U/L (14-36); SGPT/ALT 13 U/L (0-35); SODIUM 132 mmol/L (137-145); Total Protein 6.3 g/dL (6.3-8.2)
[2021-01-15 01:42] LABS: Potassium 2.5 mmol/L (3.5-5.1)
[2021-01-15] MEDS ORDERED: Magnesium Sulfate 1 GM/2 ML VIAL IV STA (01:44)
[2021-01-15] MEDS ORDERED: Klor Con 10 MEQ PO ONE ×2 (01:45→01:51)
[2021-01-15] MEDS ORDERED: Magnesium Sulfate 1 GM/2 ML VIAL ONE (01:51)
[2021-01-15] MEDS ORDERED: POTASSIUM CHLORIDE 20 mEq IN WATER 100ML 100 ML IV ONE ×2 (01:51→05:10)
[2021-01-15] MEDS: POTASSIUM CHLORIDE 20 mEq IN WATER 100ML 20 MEQ/100 ML BAG IV SCH ×2 (01:55→05:17)
[2021-01-15 03:19] LABS: Appearance CLEAR (CLEAR); Bilirubin NEGATIVE (NEGATIVE); Blood NEGATIVE Ery/ul (0-5); Glucose NEGATIVE (NEGATIVE); Ketones NEGATIVE (NEGATIVE); Leukocyte Esterase NEGATIVE (NEGATIVE); Nitrite NEGATIVE (NEGATIVE); Protein,Urine Dip NEGATIVE (Negative); Specific Gravity 1.001 (1.005-1.025); Urobilinogen NEGATIVE mg/dL (0-1)
[2021-01-15 03:55] LABS: Amphetamine,Urine NEGATIVE (NEGATIVE); Barbiturate,Urine NEGATIVE (NEGATIVE); Benzodiazepine,Urine NEGATIVE (NEGATIVE); Cocaine,Urine NEGATIVE (NEGATIVE); Methadone,Urine NEGATIVE (NEGATIVE); Opiate,Urine NEGATIVE (NEGATIVE); PCP,Urine NEGATIVE (NEGATIVE); THC,Urine NEGATIVE (NEGATIVE)
[2021-01-15] MEDS ORDERED: DUONEB 0.5-3 MG/3 ml Neb IH PRN (06:04)
[2021-01-15] MEDS ORDERED: Sodium Chloride 0.9% W/ 20 mEq KCl/LITER 1,000 ML IV SCH (06:04)
[2021-01-15] MEDS ORDERED: Zofran 4 MG/2 ML VIAL IV PRN (06:04)
--- NOTE | 2021-01-15 09:21 | XRAY ---
Indication: Overdose. Comparison: January 05, 2021. Portable chest remains hyperinflated with stable left hilar/left base calcified granulomas, tiny left effusion/hemothorax, and multiple left rib fractures. No pneumothorax. Heart not enlarged. No new cardiopulmonary abnormalities.
[2021-01-15] MEDS ORDERED: ATARAX 25 MG PO PRN (09:43)
[2021-01-15] MEDS ORDERED: NON-FORMULARY ITEM (Ondansetron Hcl [Zofran] 4 MG) PO PRN (09:43)
[2021-01-15] MEDS ORDERED: ZOFRAN ODT 4 MG PO PRN (09:58)
[2021-01-15] MEDS ORDERED: MEDICATION INTERVENTION PO SCH (10:00)
[2021-01-15] MEDS ORDERED: PLAVIX 75 MG Tablet PO SCH (10:00)
[2021-01-15] MEDS ORDERED: NON-FORMULARY ITEM (Meloxicam [Mobic] 15 MG) PO SCH (10:00)
[2021-01-15] MEDS ORDERED: Zestril 10 MG PO SCH (10:00)
[2021-01-15] MEDS ORDERED: NON-FORMULARY ITEM (Nabumetone [Relafen] 500 MG) PO SCH (10:00)
[2021-01-15] MEDS ORDERED: Toprol Xl 50 MG PO SCH (10:00)
[2021-01-15] MEDS ORDERED: PROTONIX 40 MG IV IV SCH (10:00)
[2021-01-15] MEDS ORDERED: ECOTRIN 81 MG PO SCH (10:00)
[2021-01-15] MEDS ORDERED: MELOXICAM PO SCH (10:00)
[2021-01-15] MEDS: Zanaflex 4 MG PO SCH ×2 (10:13→15:29)
[2021-01-15 16:42] VITALS: BP 129/70; PULSE 73; O2SAT 96
--- NOTE | 2021-01-15 20:06 | PCM.SSS ---
History of Present Illness - Chief Complaint Chief Complaint: confusion and ? alprazolam overdose today History of Present Illness: is a 55 year old female.with history of hypertension, hyperlipidemia, tobacco abuse, COPD, anxiety/depression presented in the ER after she had a overdose on Xanax. Patient took 15 pills of 2 mg Xanax around 2310 in front of family. Patient denies any chest pain palpitations or shortness of breath. Patient reports she is done with her life and does not want to live anymore. Denies any homicidal ideations. Does not see much hope in life. Patient is awake alert but not fully oriented and getting sleepy. On further interro gation patient denied taking any alprazolam and that is supported by her urine toxicology profile. - Review of Systems Constitutional: Lethargy, No Fever, No Chills Eyes: No Symptoms Ears, Nose, & Throat: No Symptoms Respiratory: No Cough, No Short Of Breath Cardiac: No Chest Pain, No Edema, No Syncope Abdominal/Gastrointestinal: No Abdominal Pain, No Nausea, No Vomiting, No Diarrhea Genitourinary Symptoms: No Dysuria Musculoskeletal: No Back Pain, No Neck Pain Skin: No Rash Neurological: No Dizziness, No Focal Weakness, No Sensory Changes Psychological: No Symptoms Endocrine: No Symptoms Hematologic/Lymphatic: No Symptoms Immunological/Allergic: No Symptoms Medications & Allergies Home Medications: Home Medication List Aspirin EC 81 mg [Ecotrin 81 mg] 81 mg PO DAILY 07/22/20 [History Confirmed 01/15/21] Atorvastatin Calcium [Lipitor 40Mg] 40 mg PO HS 07/22/20 [History Confirmed 01/15/21] Clopidogrel Bisulfate 75 mg [PLAVIX 75 MG Tablet] 75 mg PO DAILY 07/22/20 [History Confirmed 01/15/21] Lisinopril 10 mg [Zestril 10 MG] 10 mg PO DAILY 07/22/20 [History Confirmed 01/15/21] PANTOPRAZOLE 40 mg Tablet [Protonix 40MG Tablet] 40 mg PO QAM 07/22/20 [History Confirmed 01/15/21] Tizanidine HCl 4 mg [Zanaflex 4 MG] 4 mg PO TID 07/22/20 [History Confirmed 01/15/21] Fluoxetine HCl [Prozac] 40 mg PO HS 01/01/21 [History Confirmed 01/15/21] Meloxicam [Mobic] 15 mg PO DAILY 01/01/21 [History Confirmed 01/15/21] Nabumetone [Relafen] 500 mg PO DAILY 01/01/21 [History Confirmed 01/15/21] Ondansetron HCl [Zofran] 4 mg PO TID PRN #10 tablet 01/01/21 [Rx Confirmed 01/15/21] Metoprolol Succinate 50 mg [Toprol Xl 50 MG] 50 mg PO DAILY 01/06/21 [History Confirmed 01/15/21] Hydroxyzine HCl 25 mg [Atarax 25 mg] 25 mg PO QID PRN PRN 30 Days tablet 01/08/21 [Rx Confirmed 01/15/21] Allergies/Adverse Reactions: Allergies Allergy/AdvReac Type Severity Reaction Status Date / Time diazepam [From Valium] AdvReac Verified 01/15/21 05:53 - Past Medical History Past Medical History: Yes Neurological History: No Pertinent History ENT History: No Pertinent History Cardiac History: High Cholesterol, Hypertension Respiratory History: No Pertinent History Endocrine Medical History: No Pertinent History Musculoskelatal History: Arthritis, Osteoporosis GI Medical History: Diverticulitis, GERD History: No Pertinent History Pyscho-Social History: Depression Reproductive Disorders: No Pertinent History Comment: All above information carried over via recall. Patient refusing to talk to this nurse or answer questions. - Female History Are you now?: No - Past Surgical History Past Surgical History: Yes Neuro Surgical History: No Pertinent History Cardiac History: Cardiac Catheterization, Cardiac Stent Respiratory Surgery: No Pertinent History GI Surgical History: No Pertinent History Genitourinary Surgical Hx: No Pertinent History Female Surgical History: Section, Tubal Ligation Other Surgical History: Hinged Plate in Right Foot - Social History Smoking Status: Never smoker How long have you smoked: years Exposure to second hand smoke: No Alcohol: None, Occasionally Drug Use: none - Physical Exam Vital Signs: Vital Signs - 24 hr Temp Pulse Resp BP Pulse Ox 01/15/21 16:00 98.6 F 73 16 129/70 96 01/15/21 12:00 98.4 F 76 14 138/82 94 L 07/09/21 08:55 97.8 F 78 16 144/64 96 01/15/21 08:20 72 16 92 L 01/15/21 08:00 20 01/15/21 07:15 97.8 F 78 16 144/67 96 01/15/21 06:30 97.8 F 78 16 144/67 96 01/15/21 05:00 87 18 172/85 96 01/15/21 04:17 79 183/99 95 01/15/21 03:47 81 178/99 95 01/15/21 01:50 96 01/15/21 00:26 98.2 F 84 18 181/103 96 General Appearance: mild distress, lethargy Neurologic Exam: alert, No motor deficits Eye Exam: PERRL/EOMI, eyes nml inspection Ears, Nose, Throat Exam: normal ENT inspection, TMs normal, pharynx normal, moist mucous membranes Neck Exam: normal inspection, non-tender, supple, full range of motion Respiratory Exam: normal breath sounds, lungs clear, No respiratory distress Cardiovascular Exam: regular rate/rhythm, normal heart sounds, normal peripheral pulses Gastrointestinal/Abdomen Exam: soft, normal bowel sounds, No tenderness, No mass Back Exam: normal inspection, normal range of motion, No CVA tenderness, No vertebral tenderness Extremity Exam: normal inspection, normal range of motion, pelvis stable Skin Exam: normal color, warm, dry, No rash Lymphatic Exam: No adenopathy Results - Labs Lab/Micro Results: Lab Results-Last 24 Hours 01/15/21 01/15/21 01/15/21 Range/Units 01:00 01:00 01:00 WBC 8.5 (4.0-10.5) K/mm3 RBC 3.39 L (4.1-5.4) M/mm3 Hgb 11.1 L (12.0-16.0) gm/dl Hct 33.3 L (35-47) % MCV 98.2 (78-100) fl MCH 32.7 H (26-32) pg MCHC 33.3 (32-36) g/dl RDW 13.6 (11.5-14.0) % Plt Count 475 H (150-450) K/mm3 MPV 8.5 (7.5-11.0) fl Gran % 41.9 (36.0-66.0) % Eos # (Auto) 0.13 (0-0.5) Absolute Lymphs (auto) 3.86 (1.0-4.6) Absolute Monos (auto) 0.93 (0.0-1.3) Lymphocytes % 45.2 H (24.0-44.0) % Monocytes % 10.9 (0.0-12.0) % Eosinophils % 1.5 (0.00-5.0) % Basophils % 0.5 (0.0-0.4) % Absolute Granulocytes 3.58 (1.4-6.9) Basophils # 0.04 (0-0.4) Sodium 132 L (137-145) mmol/L Potassium 2.5 L* (3.5-5.1) mmol/L Chloride 95 L (98-107) mmol/L Carbon Dioxide 26 (22-30) mmol/L Anion Gap 13.4 (5-15) MEQ/L BUN 7 (7-17) mg/dL Creatinine 0.62 (0.52-1.04) mg/dL Estimated GFR > 60.0 ML/MIN Glucose 109 H (74-106) mg/dL Calcium 8.9 (8.4-10.2) mg/dL Total Bilirubin < 0.10 L (0.2-1.3) mg/dL AST 23 (14-36) U/L ALT 13 (0-35) U/L Alkaline Phosphatase 114 (38-126) U/L Creatine Kinase 82 (30-135) U/L Troponin I < 0.012 (0.000-0.034) ng/mL Serum Total Protein 6.3 (6.3-8.2) g/dL Albumin 3.7 (3.5-5.0) g/dL Urine Color (YELLOW) Urine Appearance (CLEAR) Urine pH (5-6) Ur Specific [place] (1.005-1.025) Urine Protein (Negative) Urine Ketones (NEGATIVE) Urine Blood (0-5) Roger/ul Urine Nitrite (NEGATIVE) Urine Bilirubin (NEGATIVE) Urine Urobilinogen (0-1) mg/dL Ur Leukocyte Esterase (NEGATIVE) Urine WBC (Auto) (0-5) /HPF Urine RBC (Auto) (0-2) /HPF U Epithel Cells (Auto) (FEW) /HPF Urine Bacteria (Auto) (NEGATIVE) /HPF Urine Culture Reflexed (NO) Urine Glucose (NEGATIVE) mg/dL Salicylates < 1.0 L (2-20) mg/dL Urine Opiates Level (NEGATIVE) Ur Methadone (NEGATIVE) Acetaminophen < 10 L (10-30) ug/ml Urine Barbiturates (NEGATIVE) Ur Phencyclidine (PCP) (NEGATIVE) Urine Amphetamine (NEGATIVE) U Benzodiazepine Level (NEGATIVE) Urine Cocaine (NEGATIVE) Urine Marijuana (THC) (NEGATIVE) Ethyl Alcohol < 10 (0-10) mg/dL SARS-CoV-2 (PCR) (NEGATIVE) 01/15/21 01/15/21 01/15/21 Range/Units 03:13 03:13 03:30 WBC (4.0-10.5) K/mm3 RBC (4.1-5.4) M/mm3 Hgb (12.0-16.0) gm/dl Hct (35-47) % MCV (78-100) fl MCH (26-32) pg MCHC (32-36) g/dl RDW (11.5-14.0) % Plt Count (150-450) K/mm3 MPV (7.5-11.0) fl Gran % (36.0-66.0) % Eos # (Auto) (0-0.5) Absolute Lymphs (auto) (1.0-4.6) Absolute Monos (auto) (0.0-1.3) Lymphocytes % (24.0-44.0) % Monocytes % (0.0-12.0) % Eosinophils % (0.00-5.0) % Basophils % (0.0-0.4) % Absolute Granulocytes (1.4-6.9) Basophils # (0-0.4) Sodium (137-145) mmol/L Potassium (3.5-5.1) mmol/L Chloride (98-107) mmol/L Carbon Dioxide (22-30) mmol/L Anion Gap (5-15) MEQ/L BUN (7-17) mg/dL Creatinine (0.52-1.04) mg/dL Estimated GFR ML/MIN Glucose (74-106) mg/dL Calcium (8.4-10.2) mg/dL Total Bilirubin (0.2-1.3) mg/dL AST (14-36) U/L ALT (0-35) U/L Alkaline Phosphatase (38-126) U/L Creatine Kinase (30-135) U/L Troponin I 0.012 (0.000-0.034) ng/mL Serum Total Protein (6.3-8.2) g/dL Albumin (3.5-5.0) g/dL Urine Color COLORLESS (YELLOW) Urine Appearance CLEAR (CLEAR) Urine pH 7.0 (5-6) Ur Specific [place] 1.001 (1.005-1.025) Urine Protein NEGATIVE (Negative) Urine Ketones NEGATIVE (NEGATIVE) Urine Blood NEGATIVE (0-5) Roger/ul Urine Nitrite NEGATIVE (NEGATIVE) Urine Bilirubin NEGATIVE (NEGATIVE) Urine Urobilinogen NEGATIVE (0-1) mg/dL Ur Leukocyte Esterase NEGATIVE (NEGATIVE) Urine WBC (Auto) NONE (0-5) /HPF Urine RBC (Auto) NONE (0-2) /HPF U Epithel Cells (Auto) NONE (FEW) /HPF Urine Bacteria (Auto) NONE (NEGATIVE) /HPF Urine Culture Reflexed NO (NO) Urine Glucose NEGATIVE (NEGATIVE) mg/dL Salicylates (2-20) mg/dL Urine Opiates Level NEGATIVE (NEGATIVE) Ur Methadone NEGATIVE (NEGATIVE) Acetaminophen (10-30) ug/ml Urine Barbiturates NEGATIVE (NEGATIVE) Ur Phencyclidine (PCP) NEGATIVE (NEGATIVE) Urine Amphetamine NEGATIVE (NEGATIVE) U Benzodiazepine Level NEGATIVE (NEGATIVE) Urine Cocaine NEGATIVE (NEGATIVE) Urine Marijuana (THC) NEGATIVE (NEGATIVE) Ethyl Alcohol (0-10) mg/dL SARS-CoV-2 (PCR) (NEGATIVE) 01/15/21 01/15/21 01/15/21 Range/Units 03:32 06:30 09:45 WBC (4.0-10.5) K/mm3 RBC (4.1-5.4) M/mm3 Hgb (12.0-16.0) gm/dl Hct (35-47) % MCV (78-100) fl MCH (26-32) pg MCHC (32-36) g/dl RDW (11.5-14.0) % Plt Count (150-450) K/mm3 MPV (7.5-11.0) fl Gran % (36.0-66.0) % Eos # (Auto) (0-0.5) Absolute Lymphs (auto) (1.0-4.6) Absolute Monos (auto) (0.0-1.3) Lymphocytes % (24.0-44.0) % Monocytes % (0.0-12.0) % Eosinophils % (0.00-5.0) % Basophils % (0.0-0.4) % Absolute Granulocytes (1.4-6.9) Basophils # (0-0.4) Sodium (137-145) mmol/L Potassium (3.5-5.1) mmol/L Chloride (98-107) mmol/L Carbon Dioxide (22-30) mmol/L Anion Gap (5-15) MEQ/L BUN (7-17) mg/dL Creatinine (0.52-1.04) mg/dL Estimated GFR ML/MIN Glucose (74-106) mg/dL Calcium (8.4-10.2) mg/dL Total Bilirubin (0.2-1.3) mg/dL AST (14-36) U/L ALT (0-35) U/L Alkaline Phosphatase (38-126) U/L Creatine Kinase (30-135) U/L Troponin I < 0.012 < 0.012 (0.000-0.034) ng/mL Serum Total Protein (6.3-8.2) g/dL Albumin (3.5-5.0) g/dL Urine Color (YELLOW) Urine Appearance (CLEAR) Urine pH (5-6) Ur Specific [place] (1.005-1.025) Urine Protein (Negative) Urine Ketones (NEGATIVE) Urine Blood (0-5) Roger/ul Urine Nitrite (NEGATIVE) Urine Bilirubin (NEGATIVE) Urine Urobilinogen (0-1) mg/dL Ur Leukocyte Esterase (NEGATIVE) Urine WBC (Auto) (0-5) /HPF Urine RBC (Auto) (0-2) /HPF U Epithel Cells (Auto) (FEW) /HPF Urine Bacteria (Auto) (NEGATIVE) /HPF Urine Culture Reflexed (NO) Urine Glucose (NEGATIVE) mg/dL Salicylates (2-20) mg/dL Urine Opiates Level (NEGATIVE) Ur Methadone (NEGATIVE) Acetaminophen (10-30) ug/ml Urine Barbiturates (NEGATIVE) Ur Phencyclidine (PCP) (NEGATIVE) Urine Amphetamine (NEGATIVE) U Benzodiazepine Level (NEGATIVE) Urine Cocaine (NEGATIVE) Urine Marijuana (THC) (NEGATIVE) Ethyl Alcohol (0-10) mg/dL SARS-CoV-2 (PCR) NEGATIVE (NEGATIVE) 01/15/21 01/15/21 Range/Units 09:45 12:34 WBC (4.0-10.5) K/mm3 RBC (4.1-5.4) M/mm3 Hgb (12.0-16.0) gm/dl Hct (35-47) % MCV (78-100) fl MCH (26-32) pg MCHC (32-36) g/dl RDW (11.5-14.0) % Plt Count (150-450) K/mm3 MPV (7.5-11.0) fl Gran % (36.0-66.0) % Eos # (Auto) (0-0.5) Absolute Lymphs (auto) (1.0-4.6) Absolute Monos (auto) (0.0-1.3) Lymphocytes % (24.0-44.0) % Monocytes % (0.0-12.0) % Eosinophils % (0.00-5.0) % Basophils % (0.0-0.4) % Absolute Granulocytes (1.4-6.9) Basophils # (0-0.4) Sodium (137-145) mmol/L Potassium 3.4 L D (3.5-5.1) mmol/L Chloride (98-107) mmol/L Carbon Dioxide (22-30) mmol/L Anion Gap (5-15) MEQ/L BUN (7-17) mg/dL Creatinine (0.52-1.04) mg/dL Estimated GFR ML/MIN Glucose (74-106) mg/dL Calcium (8.4-10.2) mg/dL Total Bilirubin (0.2-1.3) mg/dL AST (14-36) U/L ALT (0-35) U/L Alkaline Phosphatase (38-126) U/L Creatine Kinase (30-135) U/L Troponin I < 0.012 (0.000-0.034) ng/mL Serum Total Protein (6.3-8.2) g/dL Albumin (3.5-5.0) g/dL Urine Color (YELLOW) Urine Appearance (CLEAR) Urine pH (5-6) Ur Specific [place] (1.005-1.025) Urine Protein (Negative) Urine Ketones (NEGATIVE) Urine Blood (0-5) Roger/ul Urine Nitrite (NEGATIVE) Urine Bilirubin (NEGATIVE) Urine Urobilinogen (0-1) mg/dL Ur Leukocyte Esterase (NEGATIVE) Urine WBC (Auto) (0-5) /HPF Urine RBC (Auto) (0-2) /HPF U Epithel Cells (Auto) (FEW) /HPF Urine Bacteria (Auto) (NEGATIVE) /HPF Urine Culture Reflexed (NO) Urine Glucose (NEGATIVE) mg/dL Salicylates (2-20) mg/dL Urine Opiates Level (NEGATIVE) Ur Methadone (NEGATIVE) Acetaminophen (10-30) ug/ml Urine Barbiturates (NEGATIVE) Ur Phencyclidine (PCP) (NEGATIVE) Urine Amphetamine (NEGATIVE) U Benzodiazepine Level (NEGATIVE) Urine Cocaine (NEGATIVE) Urine Marijuana (THC) (NEGATIVE) Ethyl Alcohol (0-10) mg/dL SARS-CoV-2 (PCR) (NEGATIVE) Accuchecks Date 01/15/21 Time 01:43 - Radiology Impressions Radiology Exams & Impressions: Radiology Procedures Category Date Time Status CHEST 1 VIEW (PORTABLE) Stat Exams 01/15/21 00:21 Completed - Other Procedures and Tests Respiratory Therapy 01/15/21 06:04 Oxygen Nasal Cannula 2 lpm 01/15/21 08:50 Respiratory Therapy Assessment DAILY Assessment/Plan (1) Hypokalemia Status: Acute Code(s): E87.6 - HYPOKALEMIA (2) Suicidal ideation Status: Acute Code(s): R45.851 - SUICIDAL IDEATIONS Hospital Summary - Vitals & Intake/Output Vital Signs: Vital Signs Temperature 98.6 F 01/15/21 16:00 Pulse Rate 73 01/15/21 16:00 Respiratory Rate 16 01/15/21 16:00 Blood Pressure 129/70 01/15/21 16:00 O2 Sat by Pulse Oximetry 96 01/15/21 16:00 Intake & Output: Intake & Output 01/13/21 01/14/21 01/15/21 01/16/21 11:59 11:59 11:59 11:59 Intake Total 0 1640 Balance 0 1640 Weight 56.6 kg - Lab Result Diagrams: 01/15/21 01:00 01/15/21 09:45 Lab Results-Last 24 Hrs: Lab Results-Last 24 Hours 01/15/21 01/15/21 01/15/21 Range/Units 01:00 01:00 01:00 WBC 8.5 (4.0-10.5) K/mm3 RBC 3.39 L (4.1-5.4) M/mm3 Hgb 11.1 L (12.0-16.0) gm/dl Hct 33.3 L (35-47) % MCV 98.2 (78-100) fl MCH 32.7 H (26-32) pg MCHC 33.3 (32-36) g/dl RDW 13.6 (11.5-14.0) % Plt Count 475 H (150-450) K/mm3 MPV 8.5 (7.5-11.0) fl Gran % 41.9 (36.0-66.0) % Eos # (Auto) 0.13 (0-0.5) Absolute Lymphs (auto) 3.86 (1.0-4.6) Absolute Monos (auto) 0.93 (0.0-1.3) Lymphocytes % 45.2 H (24.0-44.0) % Monocytes % 10.9 (0.0-12.0) % Eosinophils % 1.5 (0.00-5.0) % Basophils % 0.5 (0.0-0.4) % Absolute Granulocytes 3.58 (1.4-6.9) Basophils # 0.04 (0-0.4) Sodium 132 L (137-145) mmol/L Potassium 2.5 L* (3.5-5.1) mmol/L Chloride 95 L (98-107) mmol/L Carbon Dioxide 26 (22-30) mmol/L Anion Gap 13.4 (5-15) MEQ/L BUN 7 (7-17) mg/dL Creatinine 0.62 (0.52-1.04) mg/dL Estimated GFR > 60.0 ML/MIN Glucose 109 H (74-106) mg/dL Calcium 8.9 (8.4-10.2) mg/dL Total Bilirubin < 0.10 L (0.2-1.3) mg/dL AST 23 (14-36) U/L ALT 13 (0-35) U/L Alkaline Phosphatase 114 (38-126) U/L Creatine Kinase 82 (30-135) U/L Troponin I < 0.012 (0.000-0.034) ng/mL Serum Total Protein 6.3 (6.3-8.2) g/dL Albumin 3.7 (3.5-5.0) g/dL Urine Color (YELLOW) Urine Appearance (CLEAR) Urine pH (5-6) Ur Specific [place] (1.005-1.025) Urine Protein (Negative) Urine Ketones (NEGATIVE) Urine Blood (0-5) Roger/ul Urine Nitrite (NEGATIVE) Urine Bilirubin (NEGATIVE) Urine Urobilinogen (0-1) mg/dL Ur Leukocyte Esterase (NEGATIVE) Urine WBC (Auto) (0-5) /HPF Urine RBC (Auto) (0-2) /HPF U Epithel Cells (Auto) (FEW) /HPF Urine Bacteria (Auto) (NEGATIVE) /HPF Urine Culture Reflexed (NO) Urine Glucose (NEGATIVE) mg/dL Salicylates < 1.0 L (2-20) mg/dL Urine Opiates Level (NEGATIVE) Ur Methadone (NEGATIVE) Acetaminophen < 10 L (10-30) ug/ml Urine Barbiturates (NEGATIVE) Ur Phencyclidine (PCP) (NEGATIVE) Urine Amphetamine (NEGATIVE) U Benzodiazepine Level (NEGATIVE) Urine Cocaine (NEGATIVE) Urine Marijuana (THC) (NEGATIVE) Ethyl Alcohol < 10 (0-10) mg/dL SARS-CoV-2 (PCR) (NEGATIVE) 01/15/21 01/15/21 01/15/21 Range/Units 03:13 03:13 03:30 WBC (4.0-10.5) K/mm3 RBC (4.1-5.4) M/mm3 Hgb (12.0-16.0) gm/dl Hct (35-47) % MCV (78-100) fl MCH (26-32) pg MCHC (32-36) g/dl RDW (11.5-14.0) % Plt Count (150-450) K/mm3 MPV (7.5-11.0) fl Gran % (36.0-66.0) % Eos # (Auto) (0-0.5) Absolute Lymphs (auto) (1.0-4.6) Absolute Monos (auto) (0.0-1.3) Lymphocytes % (24.0-44.0) % Monocytes % (0.0-12.0) % Eosinophils % (0.00-5.0) % Basophils % (0.0-0.4) % Absolute Granulocytes (1.4-6.9) Basophils # (0-0.4) Sodium (137-145) mmol/L Potassium (3.5-5.1) mmol/L Chloride (98-107) mmol/L Carbon Dioxide (22-30) mmol/L Anion Gap (5-15) MEQ/L BUN (7-17) mg/dL Creatinine (0.52-1.04) mg/dL Estimated GFR ML/MIN Glucose (74-106) mg/dL Calcium (8.4-10.2) mg/dL Total Bilirubin (0.2-1.3) mg/dL AST (14-36) U/L ALT (0-35) U/L Alkaline Phosphatase (38-126) U/L Creatine Kinase (30-135) U/L Troponin I 0.012 (0.000-0.034) ng/mL Serum Total Protein (6.3-8.2) g/dL Albumin (3.5-5.0) g/dL Urine Color COLORLESS (YELLOW) Urine Appearance CLEAR (CLEAR) Urine pH 7.0 (5-6) Ur Specific [place] 1.001 (1.005-1.025) Urine Protein NEGATIVE (Negative) Urine Ketones NEGATIVE (NEGATIVE) Urine Blood NEGATIVE (0-5) Roger/ul Urine Nitrite NEGATIVE (NEGATIVE) Urine Bilirubin NEGATIVE (NEGATIVE) Urine Urobilinogen NEGATIVE (0-1) mg/dL Ur Leukocyte Esterase NEGATIVE (NEGATIVE) Urine WBC (Auto) NONE (0-5) /HPF Urine RBC (Auto) NONE (0-2) /HPF U Epithel Cells (Auto) NONE (FEW) /HPF Urine Bacteria (Auto) NONE (NEGATIVE) /HPF Urine Culture Reflexed NO (NO) Urine Glucose NEGATIVE (NEGATIVE) mg/dL Salicylates (2-20) mg/dL Urine Opiates Level NEGATIVE (NEGATIVE) Ur Methadone NEGATIVE (NEGATIVE) Acetaminophen (10-30) ug/ml Urine Barbiturates NEGATIVE (NEGATIVE) Ur Phencyclidine (PCP) NEGATIVE (NEGATIVE) Urine Amphetamine NEGATIVE (NEGATIVE) U Benzodiazepine Level NEGATIVE (NEGATIVE) Urine Cocaine NEGATIVE (NEGATIVE) Urine Marijuana (THC) NEGATIVE (NEGATIVE) Ethyl Alcohol (0-10) mg/dL SARS-CoV-2 (PCR) (NEGATIVE) 01/15/21 01/15/21 01/15/21 Range/Units 03:32 06:30 09:45 WBC (4.0-10.5) K/mm3 RBC (4.1-5.4) M/mm3 Hgb (12.0-16.0) gm/dl Hct (35-47) % MCV (78-100) fl MCH (26-32) pg MCHC (32-36) g/dl RDW (11.5-14.0) % Plt Count (150-450) K/mm3 MPV (7.5-11.0) fl Gran % (36.0-66.0) % Eos # (Auto) (0-0.5) Absolute Lymphs (auto) (1.0-4.6) Absolute Monos (auto) (0.0-1.3) Lymphocytes % (24.0-44.0) % Monocytes % (0.0-12.0) % Eosinophils % (0.00-5.0) % Basophils % (0.0-0.4) % Absolute Granulocytes (1.4-6.9) Basophils # (0-0.4) Sodium (137-145) mmol/L Potassium (3.5-5.1) mmol/L Chloride (98-107) mmol/L Carbon Dioxide (22-30) mmol/L Anion Gap (5-15) MEQ/L BUN (7-17) mg/dL Creatinine (0.52-1.04) mg/dL Estimated GFR ML/MIN Glucose (74-106) mg/dL Calcium (8.4-10.2) mg/dL Total Bilirubin (0.2-1.3) mg/dL AST (14-36) U/L ALT (0-35) U/L Alkaline Phosphatase (38-126) U/L Creatine Kinase (30-135) U/L Troponin I < 0.012 < 0.012 (0.000-0.034) ng/mL Serum Total Protein (6.3-8.2) g/dL Albumin (3.5-5.0) g/dL Urine Color (YELLOW) Urine Appearance (CLEAR) Urine pH (5-6) Ur Specific [place] (1.005-1.025) Urine Protein (Negative) Urine Ketones (NEGATIVE) Urine Blood (0-5) Roger/ul Urine Nitrite (NEGATIVE) Urine Bilirubin (NEGATIVE) Urine Urobilinogen (0-1) mg/dL Ur Leukocyte Esterase (NEGATIVE) Urine WBC (Auto) (0-5) /HPF Urine RBC (Auto) (0-2) /HPF U Epithel Cells (Auto) (FEW) /HPF Urine Bacteria (Auto) (NEGATIVE) /HPF Urine Culture Reflexed (NO) Urine Glucose (NEGATIVE) mg/dL Salicylates (2-20) mg/dL Urine Opiates Level (NEGATIVE) Ur Methadone (NEGATIVE) Acetaminophen (10-30) ug/ml Urine Barbiturates (NEGATIVE) Ur Phencyclidine (PCP) (NEGATIVE) Urine Amphetamine (NEGATIVE) U Benzodiazepine Level (NEGATIVE) Urine Cocaine (NEGATIVE) Urine Marijuana (THC) (NEGATIVE) Ethyl Alcohol (0-10) mg/dL SARS-CoV-2 (PCR) NEGATIVE (NEGATIVE) 01/15/21 01/15/21 Range/Units 09:45 12:34 WBC (4.0-10.5) K/mm3 RBC (4.1-5.4) M/mm3 Hgb (12.0-16.0) gm/dl Hct (35-47) % MCV (78-100) fl MCH (26-32) pg MCHC (32-36) g/dl RDW (11.5-14.0) % Plt Count (150-450) K/mm3 MPV (7.5-11.0) fl Gran % (36.0-66.0) % Eos # (Auto) (0-0.5) Absolute Lymphs (auto) (1.0-4.6) Absolute Monos (auto) (0.0-1.3) Lymphocytes % (24.0-44.0) % Monocytes % (0.0-12.0) % Eosinophils % (0.00-5.0) % Basophils % (0.0-0.4) % Absolute Granulocytes (1.4-6.9) Basophils # (0-0.4) Sodium (137-145) mmol/L Potassium 3.4 L D (3.5-5.1) mmol/L Chloride (98-107) mmol/L Carbon Dioxide (22-30) mmol/L Anion Gap (5-15) MEQ/L BUN (7-17) mg/dL Creatinine (0.52-1.04) mg/dL Estimated GFR ML/MIN Glucose (74-106) mg/dL Calcium (8.4-10.2) mg/dL Total Bilirubin (0.2-1.3) mg/dL AST (14-36) U/L ALT (0-35) U/L Alkaline Phosphatase (38-126) U/L Creatine Kinase (30-135) U/L Troponin I < 0.012 (0.000-0.034) ng/mL Serum Total Protein (6.3-8.2) g/dL Albumin (3.5-5.0) g/dL Urine Color (YELLOW) Urine Appearance (CLEAR) Urine pH (5-6) Ur Specific [place] (1.005-1.025) Urine Protein (Negative) Urine Ketones (NEGATIVE) Urine Blood (0-5) Roger/ul Urine Nitrite (NEGATIVE) Urine Bilirubin (NEGATIVE) Urine Urobilinogen (0-1) mg/dL Ur Leukocyte Esterase (NEGATIVE) Urine WBC (Auto) (0-5) /HPF Urine RBC (Auto) (0-2) /HPF U Epithel Cells (Auto) (FEW) /HPF Urine Bacteria (Auto) (NEGATIVE) /HPF Urine Culture Reflexed (NO) Urine Glucose (NEGATIVE) mg/dL Salicylates (2-20) mg/dL Urine Opiates Level (NEGATIVE) Ur Methadone (NEGATIVE) Acetaminophen (10-30) ug/ml Urine Barbiturates (NEGATIVE) Ur Phencyclidine (PCP) (NEGATIVE) Urine Amphetamine (NEGATIVE) U Benzodiazepine Level (NEGATIVE) Urine Cocaine (NEGATIVE) Urine Marijuana (THC) (NEGATIVE) Ethyl Alcohol (0-10) mg/dL SARS-CoV-2 (PCR) (NEGATIVE) Micro Results-Entire Visit: Accuchecks Date 01/15/21 Time 01:43 - Radiology Exams Ordered Rad Exams-Entire Visit: Radiology Procedures Category Date Time Status CHEST 1 VIEW (PORTABLE) Stat Exams 01/15/21 00:21 Completed - Procedures and Test Procedures and Tests throughout Hospitalization: Therapy Orders & Screens 01/15/21 06:04 Oxygen Nasal Cannula 2 lpm Comment: 01/15/21 08:50 Respiratory Therapy Assessment DAILY Comment: Diagnosis: Hypokalemia - Discharge Discharge Date: 01/15/21 Disposition: Home, Self-Care Condition: Stable Prescriptions: Continue Clopidogrel Bisulfate 75 mg [PLAVIX 75 MG Tablet] 75 mg PO DAILY PANTOPRAZOLE 40 mg Tablet [Protonix 40MG Tablet] 40 mg PO QAM Tizanidine HCl 4 mg [Zanaflex 4 MG] 4 mg PO TID Atorvastatin Calcium [Lipitor 40Mg] 40 mg PO HS Lisinopril 10 mg [Zestril 10 MG] 10 mg PO DAILY Aspirin EC 81 mg [Ecotrin 81 mg] 81 mg PO DAILY Nabumetone [Relafen] 500 mg PO DAILY Meloxicam [Mobic] 15 mg PO DAILY Fluoxetine HCl [Prozac] 40 mg PO HS Ondansetron HCl [Zofran] 4 mg PO TID PRN #10 tablet PRN Reason: Nausea/Vomiting Metoprolol Succinate 50 mg [Toprol Xl 50 MG] 50 mg PO DAILY Hydroxyzine HCl 25 mg [Atarax 25 mg] 25 mg PO QID PRN PRN 30 Days tablet PRN Reason: Anxiety Instructions: Suicide Prevention Additional Instructions: DO NOT TAKE XANAX, YOU SHOULD BE COMPLETELY OFF OF IT DO NOT DRINK ALCOHOL TAKE YOUR MEDICATIONS PRESCRIBED PLEASE FOLLOWUP WITH [facility]. THEIR PHONE NUMBER IS [phone]. Follow up with: CHRIS ROBERT MD [Primary Care Provider] - 01/21/21 3:15 pm ([facility])
[2021-01-15] MEDS ORDERED: Prozac 20 MG PO SCH (22:00)
[2021-01-15] MEDS ORDERED: ZOCOR 20MG PO SCH (22:00)
[2021-01-15] MEDS ORDERED: LIPITOR 40MG PO SCH (22:00)
[2021-01-15] MEDS ORDERED: NON-FORMULARY ITEM (Fluoxetine Hcl [Prozac] 40 MG) PO SCH (22:00)
[2021-01-16] MEDS ORDERED: Protonix 40MG Tablet PO SCH (10:00)
== END 2021-01-15 19:35 | disposition home or self-care (01) ==
LOC: ED 00:11 → MED SURG 05:58
PROVIDERS: ADMIT General Practice; ATTEND General Practice
DX: E87.6 Hypokalemia (principal); R45.851 Suicidal ideations; Z79.899 Other long term (current) drug therapy; Z20.828 Contact with and (suspected) exposure to other viral communicable diseases; I10 Essential (primary) hypertension; J44.9 Chronic obstructive pulmonary disease, unspecified; F17.200 Nicotine dependence, unspecified, uncomplicated; E78.00 Pure hypercholesterolemia, unspecified; Z79.01 Long term (current) use of anticoagulants
CPT/HCPCS: 36000; 36415; 71045; 80053; 80307; 81001; 82550; 84132; 84484; 85025; 93005; 93041; 94760; 96374; 96375; 99285; 99291; G0480; U0003; 90791; 93268; J2405; J3475; J3480; Q3014; A9270-GY; G0378

== ENCOUNTER 2025-02-06 14:06 | Inpatient (IN) | payer MEDICARE ==
[2025-02-06] MEDS ORDERED: Ativan 2 MG/1 ML VIAL ONE (15:12)
[2025-02-06] MEDS ORDERED: Hydromorphone 1 mg/ml Injection ONE (15:13)
[2025-02-06] MEDS: Ativan 2 MG/1 ML VIAL IV ONE (15:14)
[2025-02-06] MEDS: Hydromorphone 1 mg/ml Injection IV ONE (15:15)
[2025-02-06 15:20] LABS: BASOPHIL % 0.2 % (0.1-1.2); Basophil (Absolute #) 0.03 x10^3/uL (0.01-0.08); Eosinophil (Absolute #) 0 x10^3/uL (0.04-0.36); Hematocrit 34.1 % (34.1-44.9); Hemoglobin 12.3 g/dL (11.2-15.7); IMMATURE GRAN # 0.08 x10^3u/L (0.001-0.031); IMMATURE GRAN % 0.5 % (0.001-0.429); Lymphocyte (Absolute #) 2.37 x10^3/uL (1.18-3.74); Mean Corpuscular Hemoglobin 30.0 pg (25.6-32.2); Mean Corpuscular Hgb Concent. 36.1 g/dL (32.2-35.5); Monocyte (Absolute #) 1.05 x10^3/uL (0.24-0.86); NUCLEATED RBC # 0.00 x10^3u/L (0.00-0.012); NUCLEATED RBC % 0.0 % (0.00-0.2); Platelet Count 268 x10^3/uL (182-369); Red Blood Count 4.10 x10^6/uL (3.93-5.22); White Blood Count 14.6 x10^3/uL (3.98-10.04)
--- NOTE | 2025-02-06 15:26 | ERPHSYRPT ---
- History of Present Illness Source: patient Exam Limitations: no limitations Patient Subjective Stated Complaint: patient stated that 2 days ago she started noticing swelling to her entire face, patient stated that she also noticed swelling of her ear lobes, patient stated that she went to [facility] today and they gave her dx of sinus infection Triage Nursing Assessment: patient presents to ed via wheelchair, patient has mild swelling/redness to left side of face along with right eyelid, patient alert and oriented x4, no complaints of difficulty breathing, lungs clear throughout all terry Physician History: Patient has a temperature of 100 degrees. She has some edema in her left cheek and her periorbital area. She has someBlistering on her cheek as well 2. Is erythematous warm to the touch and swollen. It looks like cellulitis. She has had the symptoms for a couple days. She was diagnosed with sinusitis and sent homeEarlier today.Nothing makes symptoms better or worse.Pain is moderate to severe at times. It is very tender in the forehead and on the cheek when palpated and percussed. Timing/Duration: gradual onset, yesterday Severity: moderate Allergies/Adverse Reactions: No Known Drug Allergies Allergy (Unverified 02/06/25 14:28) Home Medications: Aspirin EC 81 mg [Ecotrin 81 mg] 81 mg PO DAILY 07/22/20 [History] Atorvastatin Calcium [Lipitor 40Mg] 40 mg PO HS 07/22/20 [History] Clopidogrel Bisulfate [PLAVIX Tablet] 75 mg PO DAILY 07/22/20 [History] Lisinopril 10 mg [Zestril 10 MG] 10 mg PO DAILY 07/22/20 [History] PANTOPRAZOLE 40 mg Tablet [Protonix 40MG Tablet] 40 mg PO QAM 07/22/20 [History] Cyclobenzaprine HCl 5 mg PO BID 02/06/25 [History] Hydroxyzine HCl 25 mg [Atarax 25 mg] 100 mg PO TID 02/06/25 [History] Metoprolol Succinate 50 mg [Toprol Xl 50 MG] 50 mg PO DAILY 02/06/25 [History] Hx Tetanus, Diphtheria Vaccination/Date Given: Yes Hx Influenza Vaccination/Date Given: No Hx Pneumococcal Vaccination/Date Given: No Travel Risk - International Travel Have you traveled outside of the country in past 3 weeks: No - Emerging Infectious Disease Are you exhibiting symptoms associated with any current EIDs: No - Review of Systems Constitutional: Fever, Chills Eyes: No Symptoms Ears, Nose, & Throat: No Symptoms, Ear Pain Respiratory: No Symptoms, Cough, No Cyanosis, No Dyspnea Cardiac: No Symptoms, No Chest Pain Skin: Other (See HPI) Neurological: No Symptoms Psychological: No Symptoms, Alcohol Abuse All Other Systems: Reviewed and Negative - Past Medical History Pertinent Past Medical History: Yes Neurological History: No Pertinent History ENT History: No Pertinent History Cardiac History: High Cholesterol, Hypertension Respiratory History: No Pertinent History Endocrine Medical History: No Pertinent History Musculoskeletal History: Arthritis, Osteoporosis GI Medical History: Diverticulitis, GERD History: No Pertinent History Psycho-Social History: Depression Female Reproductive Disorders: No Pertinent History Other Medical History: nerve problems - Past Surgical History Past Surgical History: Yes Neuro Surgical History: No Pertinent History Cardiac: Cardiac Catheterization, Cardiac Stent Respiratory: No Pertinent History Gastrointestinal: No Pertinent History Genitourinary: No Pertinent History Female Surgical History: Section, Tubal Ligation Other Surgical History: Hinged Plate in Right Foot - Social History Smoking Status: Current every day smoker How long have you smoked: 1/2 Exposure to second hand smoke: Yes Drug Use: none - Social Determinants of Health Will the patient participate in the screening: Yes Do you worry about a steady place to live?: No Do you have any problems with any of the following?: No known problems In the past 12 months,have you had to go without utilities?: No Transportation Issues: No Has anyone in your support network made you feel unsafe?: No Have you or anyone in your house had to go w/o enough food: No - Nursing Vital Signs Nursing Vital Signs: Initial Vital Signs Temperature 100.4 F 02/06/25 14:07 Pulse Rate 98 H 02/06/25 14:07 Respiratory Rate 18 02/06/25 14:07 Blood Pressure 131/96 02/06/25 14:07 O2 Sat by Pulse Oximetry 97 02/06/25 14:07 Pain Scale Pain Intensity 9 - Physical Exam General Appearance: no apparent distress, alert Eye Exam: left eye: other (Edema around her left eye. The surrounding tissue looks cellulitic. There is some bullous formation on the skin as well), bilateral eye: normal inspection Nasal Exam: normal inspection Throat Exam: normal, pharynx normal Neck Exam: normal inspection Cardiovascular/Respiratory Exam: chest non-tender Abdominal Exam: non-tender, soft Neurologic Exam: alert, oriented x 3, cooperative Skin Exam: normal color, warm SpO2: 96 - Course Nursing assessment & vital signs reviewed: Yes Ordered Tests: Active Orders 24 hr Category Date Time Status FACIAL BONES WO CONTRAST [CT] Stat Exams 02/06/25 14:50 Completed CBC W DIFF Stat Lab 02/06/25 15:10 Completed CMP Stat Lab 02/06/25 15:10 Completed CULTURE,WOUND Stat Lab 02/06/25 15:40 Received MAG [MAGNESIUM] Stat Lab 02/06/25 15:10 Completed UA W/RFX UR CULTURE Stat Lab 02/06/25 15:40 Ordered Medication Summary Generic Name Dose Route Start Last Admin Trade Name Freq PRN Reason Stop Dose Admin Sodium Chloride 1,000 mls @ 200 mls/hr 02/06/25 15:45 02/06/25 15:44 Sodium Chloride 0.9% 1000 Ml IV 03/08/25 15:44 200 mls/hr .Q5H DARIUS Administration Magnesium Sulfate/Water 2 gm in 50 mls @ 100 mls/hr 02/06/25 16:17 02/06/25 16:23 Magnesium Sulf 2 G/50 Ml Bag IV 02/06/25 16:46 100 ml/hr ONCE ONE 100 mls/hr Administration Discontinued Medications Generic Name Dose Route Start Last Admin Trade Name David PRN Reason Stop Dose Admin Hydromorphone HCl 1 mg 02/06/25 14:53 02/06/25 15:15 Hydromorphone 1 Mg/1ml Inj IV 02/06/25 14:54 1 mg STAT ONE Administration Hydromorphone HCl Confirm 02/06/25 15:13 Hydromorphone 1 Mg/1ml Inj Administered 02/06/25 15:14 Dose 1 mg .ROUTE .STK-MED ONE Magnesium Sulfate/Water Confirm 02/06/25 16:22 Magnesium Sulf 2 G/50 Ml Bag Administered 02/06/25 16:23 Dose 2 gm in 50 mls @ ud IV .STK-MED ONE Lorazepam 1 mg 02/06/25 14:53 02/06/25 15:14 Lorazepam 2 Mg/1 Ml 2 Mg Vial IV 02/06/25 14:54 1 mg STAT ONE Administration Lorazepam Confirm 02/06/25 15:12 Lorazepam 2 Mg/1 Ml 2 Mg Vial Administered 02/06/25 15:13 Dose 2 mg .ROUTE .STK-MED ONE Lab/Rad Data: Laboratory Result Diagrams 02/06/25 15:10 02/06/25 15:10 Laboratory Results 02/06/25 02/06/25 02/06/25 Range/Units 15:10 15:10 15:10 WBC 14.6 H (3.98-10.04) x10^3/uL RBC 4.10 (3.93-5.22) x10^6/uL Hgb 12.3 (11.2-15.7) g/dL Hct 34.1 (34.1-44.9) % MCV 83.2 (79.4-94.8) fL MCH 30.0 (25.6-32.2) pg MCHC 36.1 H (32.2-35.5) g/dL RDW 12.0 (11.7-14.4) % Plt Count 268 (182-369) x10^3/uL MPV 8.3 L (9.4-12.3) fL Gran % 75.8 H (34.0-71.1) % Immature Gran % (Auto) 0.5 H (0.001-0.429) % Nucleat RBC Rel Count 0.0 (0.00-0.2) % Eos # (Auto) 0 L (0.04-0.36) x10^3/uL Immature Gran # (Auto) 0.08 H (0.001-0.031) x10^3u/L Absolute Lymphs (auto) 2.37 (1.18-3.74) x10^3/uL Absolute Monos (auto) 1.05 H (0.24-0.86) x10^3/uL Absolute Nucleated RBC 0.00 (0.00-0.012) x10^3u/L Lymphocytes % 16.3 L (19.3-51.7) % Monocytes % 7.2 (4.7-12.5) % Eosinophils % 0.0 L (0.7-5.8) % Basophils % 0.2 (0.1-1.2) % Absolute Granulocytes 11.03 H (1.56-6.13) x10^3/uL Basophils # 0.03 (0.01-0.08) x10^3/uL Sodium 117 L* (135-145) mmol/L Potassium 4.3 (3.5-5.1) mmol/L Chloride 81 L (98-107) mmol/L Carbon Dioxide 24 (22-30) mmol/L Anion Gap 15.5 H (5-15) MEQ/L BUN 9 (7-17) mg/dL Creatinine 0.57 (0.52-1.04) mg/dL Estimated GFR 103.3 ML/MIN Glucose 115 H (74-106) mg/dL Calcium 9.0 (8.4-10.2) mg/dL Magnesium 1.4 L (1.6-2.3) mg/dL Total Bilirubin 0.50 (0.2-1.3) mg/dL AST 32 (14-36) U/L ALT 17 (0-35) U/L Alkaline Phosphatase 86 (38-126) U/L Serum Total Protein 7.4 (6.3-8.2) g/dL Albumin 4.2 (3.5-5.0) g/dL - Progress Progress: unchanged Progress Note: Patient was stable throughout stay. She had an elevated white count around 15. CT showed soft tissue swelling otherwise unremarkable. This was of her facial bones. She was hyponatremic. She always runs a little bit low like in the high 120s low 130s. This time she was 117. I started her on normal saline at 200 and I am going to hang some vancomycin and Rocephin on her. I spoke with the hospitalist he agreed to admit the patient. 02/06/25 16:27 - Departure Departure Disposition: In-patient Admission Clinical Impression: Hyponatremia, Periorbital cellulitis of left eye Condition: Stable Critical Care Time: No Referrals: CHRIS ROBERT MD [Primary Care Provider, INTERNAL MEDICINE] - Follow up/PCP as directed
[2025-02-06 15:33] LABS: Calcium 9.0 mg/dL (8.4-10.2); Carbon Dioxide 24.0 mmol/L (22-30); Creatinine 1 0.57 mg/dL (0.52-1.04); EST GLOMERULAR FILTRATION RATE 103.3 ML/MIN; Glucose 115.0 mg/dL (74-106); Potassium 4.3 mmol/L (3.5-5.1); SGOT/AST 32.0 U/L (14-36); SGPT/ALT 17.0 U/L (0-35); Total Protein 7.4 g/dL (6.3-8.2)
--- NOTE | 2025-02-06 16:04 | XRAY ---
Indication: Left periorbital cellulitis. Multiple contiguous axial images obtained through the facial bones without contrast. Sagittal and coronal reformatted images obtained. Comparison: None There is mild left facial soft tissue swelling. No focal solid/cystic soft tissue mass or abscess. Remaining visualized noncontrasted soft tissues demonstrates a few cm/subcentimeter cervical and submandibular nodes bilaterally, none pathologically enlarged. Osseous structures demineralized. No acute fracture or suspicious bony lesions. Orbits including roof, nevarez, and floors intact. Moderate mucosal thickening floor left maxillary sinus. Remaining paranasal sinuses and nasal passages are clear. Incidental mild nasal septal deviation to the left and small right middle turbinate rupesh bullosa. Visualized base of brain unremarkable. Visualized cervical spine intact. Patient is edentulous. Impression: 1. Left facial soft tissue swelling presumed clinically reported cellulitis. 2. Incidental left maxillary sinus disease, nasal septal deviation, right middle turbinate rupesh bullosa, and osteopenia. 3. Remaining CT facial bones is negative.
[2025-02-06] MEDS ORDERED: MAGNESIUM SULF 2 G/50 ML BAG 2 GM/50 ML PIGGYBACK IV ONE (16:22)
[2025-02-06] MEDS: MAGNESIUM SULF 2 G/50 ML BAG 2 GM/50 ML PIGGYBACK IV ONE (16:23)
--- NOTE | 2025-02-06 17:10 | PCM.HP ---
History of Present Illness - Chief Complaint Chief Complaint: periorbital cellulitis Date: 02/06/25 History of Present Illness: is a 59 year old female with PMHX of depression, HTN, hyperlipidemia, OA, GERD, diverticulitis, and daily smoker. The patient presented to the ER with a temperature of 100F and noticeable swelling and erythema in the left cheek and periorbital area. There is also blistering on the cheek, and the affected area is warm, tender to palpation and percussion, and appears consistent with cellulitis. She reports moderate to severe pain, particularly in the forehead and cheek, which has persisted for the past couple of days. The symptoms were not alleviated by any interventions and do not worsen with specific activities. Earlier today, the patient was seen at [facility] in [place] and discharged with a diagnosis of sinusitis. However, due to worsening symptoms, she presented to [facility], where she was started on Ceftriaxone and Vancomycin in the emergency department for presumed periorbital cellulitis. A CT scan of the facial bones revealed left facial soft tissue swelling consistent with cellulitis. Additional incidental findings included left maxillary sinus disease, nasal septal deviation, right middle turbinate rupesh bullosa, and osteopenia. She has mutiple skin lesions of body and blister to left side of face. She has a hx of drug abouse but denies any recent use. The patient was found to have severe hyponatremia with a sodium level of 117. She has a known history of hyponatremia, with prior values averaging around 132, but has not previously had a level this low. 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 Normal saline was initiated at 200 mL/hr in the ED, and nephrology was consulted for further evaluation and management.. Laboratory values will be rechecked every 6 hours. The patient is being admitted to the ICU for close monitoring and continued care. - Review of Systems Constitutional: Lethargy, No Fever, No Chills Eyes: No Symptoms, Other (evette-orbital cellulitis) Respiratory: No Cough, No Short Of Breath Cardiac: No Chest Pain, No Edema, No Syncope Abdominal/Gastrointestinal: No Abdominal Pain, No Nausea, No Vomiting, No Diarrhea Genitourinary Symptoms: No Dysuria Musculoskeletal: No Back Pain, No Neck Pain Skin: Skin Lesions, Other (Blister to left side of face), No Rash Neurological: No Dizziness, No Focal Weakness, No Sensory Changes Psychological: Depression Endocrine: No Symptoms Hematologic/Lymphatic: No Symptoms Immunological/Allergic: No Symptoms Medications & Allergies Home Medications: Home Medication List Aspirin EC 81 mg [Ecotrin 81 mg] 81 mg PO DAILY 07/22/20 [History Confirmed 02/06/25] Atorvastatin Calcium [Lipitor 40Mg] 40 mg PO HS 07/22/20 [History Confirmed 02/06/25] Clopidogrel Bisulfate [PLAVIX Tablet] 75 mg PO DAILY 07/22/20 [History Confirmed 02/06/25] Lisinopril 10 mg [Zestril 10 MG] 10 mg PO DAILY 07/22/20 [History Confirmed 02/06/25] PANTOPRAZOLE 40 mg Tablet [Protonix 40MG Tablet] 40 mg PO QAM 07/22/20 [History Confirmed 02/06/25] Amox Tr/Potass Clav. 875 mg [Augmentin 875-125 Tablet] 875 mg PO BID 02/06/25 [History Confirmed 02/06/25] Cyclobenzaprine HCl 5 mg PO BID 02/06/25 [History Confirmed 02/06/25] Hydroxyzine HCl 25 mg [Atarax 25 mg] 100 mg PO TID 02/06/25 [History Confirmed 02/06/25] Metoprolol Succinate 50 mg [Toprol Xl 50 MG] 50 mg PO DAILY 02/06/25 [History Confirmed 02/06/25] Allergies/Adverse Reactions: Allergies Allergy/AdvReac Type Severity Reaction Status Date / Time No Known Drug Allergies Allergy Unverified 02/06/25 14:28 - Past Medical History Past Medical History: Yes Neurological History: No Pertinent History ENT History: No Pertinent History Cardiac History: High Cholesterol, Hypertension Respiratory History: No Pertinent History Endocrine Medical History: No Pertinent History Musculoskelatal History: Arthritis, Osteoporosis GI Medical History: Diverticulitis, GERD History: No Pertinent History Pyscho-Social History: Depression Reproductive Disorders: No Pertinent History Comment: nerve problems - Past Surgical History Past Surgical History: Yes Neuro Surgical History: No Pertinent History Cardiac History: Cardiac Catheterization, Cardiac Stent Respiratory Surgery: No Pertinent History GI Surgical History: No Pertinent History Genitourinary Surgical Hx: No Pertinent History Female Surgical History: Section, Tubal Ligation Other Surgical History: Hinged Plate in Right Foot Significant Family History: no pertinent family hx - Social History Smoking Status: Current every day smoker How long have you smoked: 1/2 Exposure to second hand smoke: Yes Alcohol: Occasionally Drug Use: none - Social Determinants of Health Will the patient participate in the screening: Yes Do you worry about a steady place to live?: No Do you have any problems with any of the following?: No known problems In the past 12 months,have you had to go without utilities?: No Have you or anyone in your house had to go without enough: No Transportation Issues: No Has anyone in your support network made you feel unsafe?: No - Physical Exam Vital Signs: Vital Signs - 24 hr Temp Pulse Resp BP BP Pulse Ox 02/06/25 16:28 96 02/06/25 16:11 97 H 20 104/73 94 L 02/06/25 15:53 98.4 F 02/06/25 15:41 98 H 24 131/85 96 02/06/25 15:32 102 H 21 131/85 96 02/06/25 15:19 104 H 23 97 02/06/25 15:10 102 H 18 98 02/06/25 15:00 106 H 21 02/06/25 14:31 101 H 13 131/96 96 02/06/25 14:26 104 H 22 138/92 97 02/06/25 14:07 100.4 F 98 H 18 131/96 97 General Appearance: lethargy Neurologic Exam: oriented x 3, cooperative, nml cerebellar function, nml station & gait, sensation nml, depressed mood/affect, No motor deficits Eye Exam: PERRL/EOMI, eyes nml inspection, other (periorbital edema of left eye) Ears, Nose, Throat Exam: normal ENT inspection, TMs normal, pharynx normal, moist mucous membranes Neck Exam: normal inspection, non-tender, supple, full range of motion Respiratory Exam: normal breath sounds, lungs clear, No respiratory distress Cardiovascular Exam: regular rate/rhythm, normal heart sounds, normal peripheral pulses Gastrointestinal/Abdomen Exam: soft, normal bowel sounds, No tenderness, No mass Pelvic Exam: deferred Rectal Exam: deferred Back Exam: normal inspection, normal range of motion, No CVA tenderness, No vertebral tenderness Extremity Exam: normal inspection, normal range of motion, pelvis stable Skin Exam: normal color, warm, dry, other (Multiple lesions in various stages of healing on chest and back, blister to left side of face.), No rash Lymphatic Exam: No adenopathy Results - Labs Lab/Micro Results: Lab Results-Last 24 Hours 02/06/25 02/06/25 02/06/25 Range/Units 15:10 15:10 15:10 WBC 14.6 H (3.98-10.04) x10^3/uL RBC 4.10 (3.93-5.22) x10^6/uL Hgb 12.3 (11.2-15.7) g/dL Hct 34.1 (34.1-44.9) % MCV 83.2 (79.4-94.8) fL MCH 30.0 (25.6-32.2) pg MCHC 36.1 H (32.2-35.5) g/dL RDW 12.0 (11.7-14.4) % Plt Count 268 (182-369) x10^3/uL MPV 8.3 L (9.4-12.3) fL Gran % 75.8 H (34.0-71.1) % Immature Gran % (Auto) 0.5 H (0.001-0.429) % Nucleat RBC Rel Count 0.0 (0.00-0.2) % Eos # (Auto) 0 L (0.04-0.36) x10^3/uL Immature Gran # (Auto) 0.08 H (0.001-0.031) x10^3u/L Absolute Lymphs (auto) 2.37 (1.18-3.74) x10^3/uL Absolute Monos (auto) 1.05 H (0.24-0.86) x10^3/uL Absolute Nucleated RBC 0.00 (0.00-0.012) x10^3u/L Lymphocytes % 16.3 L (19.3-51.7) % Monocytes % 7.2 (4.7-12.5) % Eosinophils % 0.0 L (0.7-5.8) % Basophils % 0.2 (0.1-1.2) % Absolute Granulocytes 11.03 H (1.56-6.13) x10^3/uL Basophils # 0.03 (0.01-0.08) x10^3/uL Sodium 117 L* (135-145) mmol/L Potassium 4.3 (3.5-5.1) mmol/L Chloride 81 L (98-107) mmol/L Carbon Dioxide 24 (22-30) mmol/L Anion Gap 15.5 H (5-15) MEQ/L BUN 9 (7-17) mg/dL Creatinine 0.57 (0.52-1.04) mg/dL Estimated GFR 103.3 ML/MIN Glucose 115 H (74-106) mg/dL Calcium 9.0 (8.4-10.2) mg/dL Magnesium 1.4 L (1.6-2.3) mg/dL Total Bilirubin 0.50 (0.2-1.3) mg/dL AST 32 (14-36) U/L ALT 17 (0-35) U/L Alkaline Phosphatase 86 (38-126) U/L Serum Total Protein 7.4 (6.3-8.2) g/dL Albumin 4.2 (3.5-5.0) g/dL - Radiology Impressions Radiology Exams & Impressions: Radiology Procedures Category Date Time Status FACIAL BONES WO CONTRAST [CT] Stat Exams 02/06/25 14:50 Completed Assessment/Plan (1) Hyponatremia Current Visit: Yes Status: Acute Assessment & Plan: - Do not correct Na+ faster than 6-12 meq/L per day - Seizure precautions - ICU-Tele - IVF reduced to 150 ml/hr, was running at 200ml/hr in ER - Nephrology COnsult - Urine NA+, Serum and urine osmo- pending - UA pending - 2:2 beer potomania- drinks 15-18 beers per day - Repeat Na+ Q6 hours Code(s): E87.1 - HYPO-OSMOLALITY AND HYPONATREMIA (2) Periorbital cellulitis of left eye Current Visit: Yes Status: Acute Assessment & Plan: - IV antibiotics - IVF - CBC, CMP reviewed - CT facial bones: 1. Left facial soft tissue swelling presumed clinically reported cellulitis. 2. Incidental left maxillary sinus disease, nasal septal deviation, right middle turbinate rupesh bullosa, and osteopenia. 3. Remaining CT facial bones is negative. Code(s): L03.213 - PERIORBITAL CELLULITIS (3) Blister, face Current Visit: Yes Status: Acute Assessment & Plan: - Left side of face large blister - Consider ointment to face and lesions on body - Nurse to take pics for chart - Pt denies any recent drug use or dental infection and reports she has dentures. Code(s): S00.82XA - BLISTER (NONTHERMAL) OF OTHER PART OF HEAD, INIT ENCNTR (4) Skin lesions Current Visit: Yes Status: Acute Assessment & Plan: - Multiple skin lesions of chest and back - Consider ointment if lesions do not improve. - Wound culture pending Code(s): L98.9 - DISORDER OF THE SKIN AND SUBCUTANEOUS TISSUE, UNSPECIFIED (5) Poor personal hygiene Current Visit: Yes Status: Acute Assessment & Plan: - Pt has poor personal hygiene and malodorous. - Bath pt with chlorhexidine d/t multiple lesions of skin. - Case management consult. Code(s): R46.0 - VERY LOW LEVEL OF PERSONAL HYGIENE (6) History of alcohol abuse Current Visit: Yes Status: Chronic Assessment & Plan: - Alcohol level ordered - Per family pt drinks 15-18 beers per day - She reports drinking 1 beer today - Alcohol withdrawal protocol ordered- discussed with pt. - Pt states she does note feel like she has a problem and does not want treatment. - Explained this amount of beer consumption is a problem and she should consider treatment. Code(s): F10.11 - ALCOHOL ABUSE, IN REMISSION (7) Hx of drug abuse Current Visit: Yes Status: Chronic Assessment & Plan: - UDS ordered - Pt reports no recent drug use - + blister on left side of face- looks like a burn - abnormal lesion on left chest and back Code(s): F19.11 - OTHER PSYCHOACTIVE SUBSTANCE ABUSE, IN REMISSION (8) HTN (hypertension) Current Visit: Yes Status: Chronic Assessment & Plan: - BP stable - Continue home med Code(s): I10 - ESSENTIAL (PRIMARY) HYPERTENSION (9) Hyperlipidemia Current Visit: Yes Status: Chronic Assessment & Plan: - Continue statin Code(s): E78.5 - HYPERLIPIDEMIA, UNSPECIFIED (10) Smoker Current Visit: Yes Status: Chronic Assessment & Plan: - Advised cessation - If Na+ level improves may consider nicotine patch- hold for now as nicotine can lower Na+ level. Code(s): F17.200 - NICOTINE DEPENDENCE, UNSPECIFIED, UNCOMPLICATED (11) Depression Current Visit: Yes Status: Chronic Assessment & Plan: - Pt reports she is not currently taking anything for this and self medicates with beer. - Pt denies homicidal or suicidal ideation VTE: Lovenox PPI: Protonix Next of KIN: Jose Gurrola- Child D/C plan: 1-2 days Code status: Full Mgnt and plan of care time > 45 Code(s): F32.A - DEPRESSION, UNSPECIFIED Telemedicine Encounter - Telemedicine Encounter Telemedicine Encounter: "The entirety of this encounter was performed via Telemedicine" This visit was performed using real-time audio and video connection between my location and thepatients locationwith the assistance of a surrogateat the patients location. Written or verbal consent was obtained from the patient/guardian to perform this visit usingsynchronoustelemedicine technology. Any patient questions regarding the telemedicine interaction were answered.
[2025-02-06] MEDS: ROCEPHIN 2 GM/100 ML NACL 2 GM/100 ML IVPB IV SCH (18:35)
[2025-02-06 20:03] LABS: Glucose, Urine Negative (Negative); Protein,Urine Dip Trace (Negative); RBC 0-2 /HPF (0-5); WBC 51-100 /HPF (0-5)
[2025-02-06 20:15] LABS: Amphetamine,Urine NEGATIVE (NEGATIVE); Barbiturate,Urine NEGATIVE (NEGATIVE); Benzodiazepine,Urine NEGATIVE (NEGATIVE); Cocaine,Urine NEGATIVE (NEGATIVE); Methadone,Urine NEGATIVE (NEGATIVE); Opiate,Urine POSITIVE (NEGATIVE); PCP,Urine NEGATIVE (NEGATIVE); THC,Urine NEGATIVE (NEGATIVE)
[2025-02-06] MEDS ORDERED: Sodium Chloride 0.9% 250 ML 0 ML IV ONE (21:10)
[2025-02-06] MEDS: ZOCOR 20MG PO SCH (21:12)
[2025-02-06] MEDS: Cyclobenzaprine 10 MG PO SCH (21:13)
[2025-02-06] MEDS: VANCOCIN IV SCH (21:32)
[2025-02-06] MEDS: SODIUM CHLORIDE 0.9% IV SCH (21:32)
[2025-02-06] MEDS ORDERED: NON-FORMULARY ITEM (Cyclobenzaprine Hcl [Cyclobenzaprine Hcl] 5 MG Tablet) PO SCH (22:00)
[2025-02-06] MEDS ORDERED: ATARAX 25 MG PO SCH (22:00)
[2025-02-06] MEDS ORDERED: LIPITOR 40MG PO SCH (22:00)
[2025-02-06] MEDS: VANCOCIN INJECTION*** 1 GM in Sodium Chloride 0.9% 250 ML 250 ML IV SCH (23:15)
[2025-02-07 00:27] LABS: Calcium 8.0 mg/dL (8.4-10.2); Carbon Dioxide 24.0 mmol/L (22-30); Creatinine 1 0.6 mg/dL (0.52-1.04); EST GLOMERULAR FILTRATION RATE 102.1 ML/MIN; Glucose 120.0 mg/dL (74-106); Potassium 3.4 mmol/L (3.5-5.1)
[2025-02-07] MEDS ORDERED: Nitrostat 0.4 MG Tablet SL ONE (04:18)
[2025-02-07] MEDS ORDERED: PROTONIX 40 MG IV IV ONE (04:40)
[2025-02-07] MEDS ORDERED: MORPHINE SULFATE 2 MG INJ ONE (04:40)
[2025-02-07 05:13] LABS: Hematocrit 28.9 % (34.1-44.9); Hemoglobin 10.3 g/dL (11.2-15.7); Mean Corpuscular Hemoglobin 30.3 pg (25.6-32.2); Mean Corpuscular Hgb Concent. 35.6 g/dL (32.2-35.5); Platelet Count 227 x10^3/uL (182-369); Red Blood Count 3.40 x10^6/uL (3.93-5.22); White Blood Count 9.9 x10^3/uL (3.98-10.04)
[2025-02-07] MEDS: Valium 5 MG PO PRN (05:26)
[2025-02-07 05:29] LABS: Calcium 7.9 mg/dL (8.4-10.2); Carbon Dioxide 24.0 mmol/L (22-30); Creatinine 1 0.45 mg/dL (0.52-1.04); EST GLOMERULAR FILTRATION RATE 109.4 ML/MIN; Glucose 138.0 mg/dL (74-106); Potassium 3.1 mmol/L (3.5-5.1); SGOT/AST 36.0 U/L (14-36); SGPT/ALT 15.0 U/L (0-35); Total Protein 6.0 g/dL (6.3-8.2)
[2025-02-07] MEDS ORDERED: xanAX 0.5 MG ONE (05:42)
[2025-02-07] MEDS: Magnesium 1 Gm / 100 Ml D5W*** 100 ML IV ONE (05:45)
[2025-02-07] MEDS: Klor Con PO ONE (05:46)
[2025-02-07] MEDS ORDERED: Hydromorphone 1 mg/ml Injection ONE (06:35)
[2025-02-07] MEDS ORDERED: Lasix 40 MG/4 ML ONE (06:35)
[2025-02-07] MEDS: VANCOCIN 500 MG VIAL*** 500 MG in Sodium Chloride 100ML MINI-BAG PLUS 100 ML IV SCH (07:37)
[2025-02-07] MEDS: TYLENOL 325 MG PO PRN (08:26)
[2025-02-07] MEDS: Zestril 10 MG PO SCH (09:48)
[2025-02-07] MEDS: FOLATE 1 MG PO SCH (09:49)
[2025-02-07] MEDS: Toprol Xl 50 MG PO SCH (09:49)
[2025-02-07] MEDS: Protonix 40MG Tablet PO SCH (09:49)
[2025-02-07] MEDS: VITAMIN B-1 100 MG PO SCH (09:49)
[2025-02-07] MEDS: ECOTRIN 81 MG PO SCH (09:49)
[2025-02-07] MEDS: PLAVIX Tablet PO SCH (09:49)
[2025-02-07] MEDS ORDERED: BENADRYL 50 MG/ML IM ONE (09:49)
[2025-02-07] MEDS: THERAGRAN MULTIVITAMIN PO SCH (09:49)
[2025-02-07] MEDS: ENOXAPARIN SODIUM SQ SCH (09:52)
[2025-02-07] MEDS ORDERED: ROCEPHIN 2 GM/100 ML NACL 2 GM/100 ML IVPB IV SCH (10:00)
[2025-02-07] MEDS: BENADRYL 50 MG/ML IV ONE (10:02)
[2025-02-07] MEDS: Bactroban OINTMENT TP SCH (10:07)
--- NOTE | 2025-02-07 12:04 | PCM.NOTE ---
Date and Time: 02/07/25 1155 Subjective Assessment: 02/06/25 is a 59 year old female with PMHX of depression, HTN, hyperlipidemia, OA, GERD, diverticulitis, and daily smoker. The patient presented to the ER with a temperature of 100F and noticeable swelling and erythema in the left cheek and periorbital area. There is also blistering on the cheek, and the affected area is warm, tender to palpation and percussion, and appears consistent with cellulitis. She reports moderate to severe pain, particularly in the forehead and cheek, which has persisted for the past couple of days. The symptoms were not alleviated by any interventions and do not worsen with specific activities. Earlier today, the patient was seen at [facility] in [place] and discharged with a diagnosis of sinusitis. However, due to worsening symptoms, she presented to [facility], where she was started on Ceftriaxone and Vancomycin in the emergency department for presumed periorbital cellulitis. A CT scan of the facial bones revealed left facial soft tissue swelling consistent with cellulitis. Additional incidental findings included left maxillary sinus disease, nasal septal deviation, right middle turbinate rupesh bullosa, and osteopenia. She has mutiple skin lesions of body and blister to left side of face. She has a hx of drug abouse but denies any recent use. The patient was found to have severe hyponatremia with a sodium level of 117. She has a known history of hyponatremia, with prior values averaging around 132, but has not previously had a level this low. 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 Normal saline was initiated at 200 mL/hr in the ED, and nephrology was consulted for further evaluation and management.. Laboratory values will be rechecked every 6 hours. The patient is being admitted to the ICU for close monitoring and continued care. 02/07/25 The patient was found resting in bed this morning. She did not receive a chlorhexidine bath yesterday or overnight, despite it being ordered. When asked, the overnight nurse explained that the bath was not completed because the dope and fabric worker WELDING SPECIALIST was unwilling to assist, and the nurse preferred to wait for assistance from the morning nurse. However, that nurse had been placed furnace combination analyst so it was not done. Chlorhexidine bathing is essential in this patients care plan due to its role in reducing bacterial load, minimizing infection risk (including MRSA), and ensuring the accuracy of wound swabs and cultures. Delayed bathing may compromise wound care and increase the risk of healthcare-associated infections. The patient remains on the CIWA protocol and required medication for it overnight. She continues to receive sodium level monitoring every six hours. Her sodium this morning is 122, and we will continue NS at 150 mL/hour. Her potassium level was 3.1 and has been repleted, with ongoing monitoring planned. The patient remains on vancomycin and ceftriaxone; her white blood cell count is within normal limits. Nephrology was consulted yesterday, and we are awaiting their recommendations. Facial edema has slightly improved overall, though periorbital swelling has worsened. The patient reports that a blister on the left side of her face has been draining clear fluid throughout the night, which she has been managing with sterile 4x4 dressings. Staff assisted her with a shower this morning, during which she used chlorhexidine wash. Nursing documented multiple lesions on the left chest and back; photographs have been taken. Mupirocin cream was initiated, as the lesions appear consistent with a staph-type infection, possibly impetigo. The patient has been placed on contact precautions. Urine sodium is 17; further labs are pending to assess for SIADH, though her hyponatremia is likely due to beer potomania. The patient denies any additional concerns at this time. - Review of Systems Constitutional: No Fever, No Chills Eyes: No Symptoms, Other (evette-orbital edema) Ears, Nose, & Throat: No Symptoms Respiratory: No Cough, No Short Of Breath Cardiac: No Chest Pain, No Edema, No Syncope Abdominal/Gastrointestinal: No Abdominal Pain, No Nausea, No Vomiting, No Diar sara Genitourinary Symptoms: No Dysuria Musculoskeletal: No Back Pain, No Neck Pain Skin: Skin Lesions (left upper chest and left back), Other (blister to left side of face), No Rash Neurological: No Dizziness, No Focal Weakness, No Sensory Changes Psychological: No Symptoms Endocrine: No Symptoms Hematologic/Lymphatic: No Symptoms Immunological/Allergic: No Symptoms Objective Exam General Appearance: no apparent distress, alert Neurologic Exam: alert, oriented x 3, cooperative, normal mood/affect, nml cerebellar function, sensation nml, No motor deficits Skin Exam: normal color, warm, dry, other (Round circular crusting lesions with red centers in clusters on left upper chest and left upper side of back.) Wound Assessment: Skin/Wound Assessment Wound/Incision Assessment Start: 02/06/25 19:43 Text: Status: Active Freq: Q6H Protocol: Document 02/07/25 08:00 [facility] (Rec: 02/07/25 08:48 [facility] [id number]) Wound/Incision Assessment Left Cheek Wound Assessment Shift Assessment Wound Type Cellulitis Wound Stage Non Pressure Wound Drainage Amount Minimal Drainage Description Serous Drainage Odor None/Absent General Appearance Open to air,Clean/Dry,Reddened Comment Cleaned with Hibiclens Left Axilla Wound Assessment Shift Assessment Wound Type Lesions Wound Stage Non Pressure Wound Drainage Amount None General Appearance Open to air,Clean/Dry,Reddened Surrounding Tissue Bright Red Comment 3 Lesions, Cleaned with Hibiclens Left Posterior Shoulder Wound Assessment Shift Assessment Wound Type Lesions Wound Stage Non Pressure Wound Drainage Amount None General Appearance Open to air,Clean/Dry,Reddened Surrounding Tissue Bright Red Comment 5 lesions, Cleaned with Hibiclens Wound Photo Photo Taken No Eye Exam: PERRL, EOMI, eyes nml inspection, other (BL periorbtal edema) Ears, Nose, Throat Exam: normal ENT inspection, pharynx normal, moist mucous membranes Neck Exam: normal inspection, non-tender, supple, full range of motion Respiratory Exam: normal breath sounds, lungs clear, No respiratory distress Cardiovascular Exam: regular rate/rhythm, normal heart sounds Gastrointestinal/Abdomen Exam: soft, No tenderness, No mass Extremity Exam: normal inspection, normal range of motion Back Exam: normal inspection, normal range of motion, No CVA tenderness, No vertebral tenderness Pelvic Exam: deferred Rectal Exam: deferred Objective Data Vital Signs: Vital Signs - 24 hr Temp Pulse Resp BP BP BP Pulse Ox 02/07/25 11:00 82 23 141/84 96 02/07/25 10:00 92 H 16 121/78 96 02/07/25 09:41 97 H 19 122/72 95 02/07/25 08:00 103 H 16 132/87 95 02/07/25 07:56 16 02/07/25 07:23 98.8 F 98 H 16 144/91 94 L 02/07/25 07:00 106 H 13 156/92 94 L 02/07/25 06:00 101 H 21 140/88 94 L 02/07/25 05:07 108 H 22 131/86 97 02/07/25 04:00 97.4 F 105 H 24 131/86 97 02/07/25 03:00 99 H 21 140/68 02/07/25 02:00 101 H 25 H 122/78 02/07/25 01:00 100 H 16 128/85 95 02/07/25 00:01 104 H 02/07/25 00:00 97.0 F 100 H 19 113/72 95 02/06/25 23:00 105 H 27 H 108/80 90 L 02/06/25 22:00 103 H 23 122/67 02/06/25 21:00 102 H 26 H 110/68 93 L 02/06/25 20:00 97.3 F 106 H 18 113/69 93 L 02/06/25 19:00 92 H 18 125/70 02/06/25 18:47 98.9 F 93 H 18 109/85 94 L 02/06/25 16:28 96 02/06/25 16:11 97 H 20 104/73 94 L 02/06/25 15:53 98.4 F 02/06/25 15:41 98 H 24 131/85 96 02/06/25 15:32 102 H 21 131/85 96 02/06/25 15:19 104 H 23 97 02/06/25 15:10 102 H 18 98 02/06/25 15:00 106 H 21 02/06/25 14:31 101 H 13 131/96 96 02/06/25 14:26 104 H 22 138/92 97 02/06/25 14:07 100.4 F 98 H 18 131/96 97 Pain Assessment - Last Documented Pain Intensity 0 Pain Scale Used 0-10 Pain Scale Intake and Output: Intake & Output 02/04/25 02/05/25 02/06/25 02/07/25 11:59 11:59 11:59 11:59 Intake Total 3733 Output Total 3275 Balance 458 Weight 50.7 kg Lab Results: Lab Results-Last 24 Hours 02/06/25 02/06/25 02/06/25 Range/Units 15:10 15:10 15:10 WBC 14.6 H (3.98-10.04) x10^3/uL RBC 4.10 (3.93-5.22) x10^6/uL Hgb 12.3 (11.2-15.7) g/dL Hct 34.1 (34.1-44.9) % MCV 83.2 (79.4-94.8) fL MCH 30.0 (25.6-32.2) pg MCHC 36.1 H (32.2-35.5) g/dL RDW 12.0 (11.7-14.4) % Plt Count 268 (182-369) x10^3/uL MPV 8.3 L (9.4-12.3) fL Gran % 75.8 H (34.0-71.1) % Immature Gran % (Auto) 0.5 H (0.001-0.429) % Nucleat RBC Rel Count 0.0 (0.00-0.2) % Eos # (Auto) 0 L (0.04-0.36) x10^3/uL Immature Gran # (Auto) 0.08 H (0.001-0.031) x10^3u/L Absolute Lymphs (auto) 2.37 (1.18-3.74) x10^3/uL Absolute Monos (auto) 1.05 H (0.24-0.86) x10^3/uL Absolute Nucleated RBC 0.00 (0.00-0.012) x10^3u/L Lymphocytes % 16.3 L (19.3-51.7) % Monocytes % 7.2 (4.7-12.5) % Eosinophils % 0.0 L (0.7-5.8) % Basophils % 0.2 (0.1-1.2) % Absolute Granulocytes 11.03 H (1.56-6.13) x10^3/uL Basophils # 0.03 (0.01-0.08) x10^3/uL Sodium 117 L* (135-145) mmol/L Potassium 4.3 (3.5-5.1) mmol/L Chloride 81 L (98-107) mmol/L Carbon Dioxide 24 (22-30) mmol/L Anion Gap 15.5 H (5-15) MEQ/L BUN 9 (7-17) mg/dL Creatinine 0.57 (0.52-1.04) mg/dL Estimated GFR 103.3 ML/MIN Glucose 115 H (74-106) mg/dL Calcium 9.0 (8.4-10.2) mg/dL Magnesium 1.4 L (1.6-2.3) mg/dL Total Bilirubin 0.50 (0.2-1.3) mg/dL AST 32 (14-36) U/L ALT 17 (0-35) U/L Alkaline Phosphatase 86 (38-126) U/L Serum Total Protein 7.4 (6.3-8.2) g/dL Albumin 4.2 (3.5-5.0) g/dL Prealbumin (17.6-36.0) mg/dL Urine Color (Yellow) Urine Appearance (Clear) Urine pH (4.6-8.0) Ur Specific [place] (1.005-1.030) Urine Protein (Negative) Urine Glucose (UA) (Negative) mg/dL Urine Ketones (Negative) Urine Blood (Negative) Urine Nitrite (Negative) Urine Bilirubin (Negative) Urine Urobilinogen (0.2) mg/dL Ur Leukocyte Esterase (Negative) U Hyaline Cast (Auto) (0-2) /LPF Urine Microscopic RBC (0-5) /HPF Urine Microscopic WBC (0-5) /HPF Ur Epithelial Cells (None Seen) /HPF Urine Bacteria (None Seen) /HPF Urine Culture Reflexed (NO) Urine Sodium (30-90) mmol/L Urine Opiates Level (NEGATIVE) Ur Methadone (NEGATIVE) Urine Barbiturates (NEGATIVE) Ur Phencyclidine (PCP) (NEGATIVE) Urine Amphetamine (NEGATIVE) U Benzodiazepine Level (NEGATIVE) Urine Cocaine (NEGATIVE) Urine Marijuana (THC) (NEGATIVE) Ethyl Alcohol (0-10) mg/dL 02/06/25 02/06/25 02/06/25 Range/Units 17:09 19:45 19:45 WBC (3.98-10.04) x10^3/uL RBC (3.93-5.22) x10^6/uL Hgb (11.2-15.7) g/dL Hct (34.1-44.9) % MCV (79.4-94.8) fL MCH (25.6-32.2) pg MCHC (32.2-35.5) g/dL RDW (11.7-14.4) % Plt Count (182-369) x10^3/uL MPV (9.4-12.3) fL Gran % (34.0-71.1) % Immature Gran % (Auto) (0.001-0.429) % Nucleat RBC Rel Count (0.00-0.2) % Eos # (Auto) (0.04-0.36) x10^3/uL Immature Gran # (Auto) (0.001-0.031) x10^3u/L Absolute Lymphs (auto) (1.18-3.74) x10^3/uL Absolute Monos (auto) (0.24-0.86) x10^3/uL Absolute Nucleated RBC (0.00-0.012) x10^3u/L Lymphocytes % (19.3-51.7) % Monocytes % (4.7-12.5) % Eosinophils % (0.7-5.8) % Basophils % (0.1-1.2) % Absolute Granulocytes (1.56-6.13) x10^3/uL Basophils # (0.01-0.08) x10^3/uL Sodium (135-145) mmol/L Potassium (3.5-5.1) mmol/L Chloride (98-107) mmol/L Carbon Dioxide (22-30) mmol/L Anion Gap (5-15) MEQ/L BUN (7-17) mg/dL Creatinine (0.52-1.04) mg/dL Estimated GFR ML/MIN Glucose (74-106) mg/dL Calcium (8.4-10.2) mg/dL Magnesium (1.6-2.3) mg/dL Total Bilirubin (0.2-1.3) mg/dL AST (14-36) U/L ALT (0-35) U/L Alkaline Phosphatase (38-126) U/L Serum Total Protein (6.3-8.2) g/dL Albumin (3.5-5.0) g/dL Prealbumin (17.6-36.0) mg/dL Urine Color Yellow (Yellow) Urine Appearance Clear (Clear) Urine pH 5.5 (4.6-8.0) Ur Specific [place] 1.010 (1.005-1.030) Urine Protein Trace A (Negative) Urine Glucose (UA) Negative (Negative) mg/dL Urine Ketones 15 A (Negative) Urine Blood Negative (Negative) Urine Nitrite Negative (Negative) Urine Bilirubin Negative (Negative) Urine Urobilinogen 1.0 A (0.2) mg/dL Ur Leukocyte Esterase Large A (Negative) U Hyaline Cast (Auto) NONE SEEN (0-2) /LPF Urine Microscopic RBC 0-2 (0-5) /HPF Urine Microscopic WBC 51-100 A (0-5) /HPF Ur Epithelial Cells Few (None Seen) /HPF Urine Bacteria None Seen (None Seen) /HPF Urine Culture Reflexed YES (NO) Urine Sodium (30-90) mmol/L Urine Opiates Level POSITIVE A (NEGATIVE) Ur Methadone NEGATIVE (NEGATIVE) Urine Barbiturates NEGATIVE (NEGATIVE) Ur Phencyclidine (PCP) NEGATIVE (NEGATIVE) Urine Amphetamine NEGATIVE (NEGATIVE) U Benzodiazepine Level NEGATIVE (NEGATIVE) Urine Cocaine NEGATIVE (NEGATIVE) Urine Marijuana (THC) NEGATIVE (NEGATIVE) Ethyl Alcohol < 10 (0-10) mg/dL 02/06/25 02/06/25 02/07/25 Range/Units 19:45 20:55 00:13 WBC (3.98-10.04) x10^3/uL RBC (3.93-5.22) x10^6/uL Hgb (11.2-15.7) g/dL Hct (34.1-44.9) % MCV (79.4-94.8) fL MCH (25.6-32.2) pg MCHC (32.2-35.5) g/dL RDW (11.7-14.4) % Plt Count (182-369) x10^3/uL MPV (9.4-12.3) fL Gran % (34.0-71.1) % Immature Gran % (Auto) (0.001-0.429) % Nucleat RBC Rel Count (0.00-0.2) % Eos # (Auto) (0.04-0.36) x10^3/uL Immature Gran # (Auto) (0.001-0.031) x10^3u/L Absolute Lymphs (auto) (1.18-3.74) x10^3/uL Absolute Monos (auto) (0.24-0.86) x10^3/uL Absolute Nucleated RBC (0.00-0.012) x10^3u/L Lymphocytes % (19.3-51.7) % Monocytes % (4.7-12.5) % Eosinophils % (0.7-5.8) % Basophils % (0.1-1.2) % Absolute Granulocytes (1.56-6.13) x10^3/uL Basophils # (0.01-0.08) x10^3/uL Sodium 116 L* 119 L* (135-145) mmol/L Potassium 3.4 L D (3.5-5.1) mmol/L Chloride 88 L (98-107) mmol/L Carbon Dioxide 24 (22-30) mmol/L Anion Gap 11.3 (5-15) MEQ/L BUN 9 (7-17) mg/dL Creatinine 0.60 (0.52-1.04) mg/dL Estimated GFR 102.1 ML/MIN Glucose 120 H (74-106) mg/dL Calcium 8.0 L (8.4-10.2) mg/dL Magnesium (1.6-2.3) mg/dL Total Bilirubin (0.2-1.3) mg/dL AST (14-36) U/L ALT (0-35) U/L Alkaline Phosphatase (38-126) U/L Serum Total Protein (6.3-8.2) g/dL Albumin (3.5-5.0) g/dL Prealbumin 10.01 L (17.6-36.0) mg/dL Urine Color (Yellow) Urine Appearance (Clear) Urine pH (4.6-8.0) Ur Specific [place] (1.005-1.030) Urine Protein (Negative) Urine Glucose (UA) (Negative) mg/dL Urine Ketones (Negative) Urine Blood (Negative) Urine Nitrite (Negative) Urine Bilirubin (Negative) Urine Urobilinogen (0.2) mg/dL Ur Leukocyte Esterase (Negative) U Hyaline Cast (Auto) (0-2) /LPF Urine Microscopic RBC (0-5) /HPF Urine Microscopic WBC (0-5) /HPF Ur Epithelial Cells (None Seen) /HPF Urine Bacteria (None Seen) /HPF Urine Culture Reflexed (NO) Urine Sodium 17 L (30-90) mmol/L Urine Opiates Level (NEGATIVE) Ur Methadone (NEGATIVE) Urine Barbiturates (NEGATIVE) Ur Phencyclidine (PCP) (NEGATIVE) Urine Amphetamine (NEGATIVE) U Benzodiazepine Level (NEGATIVE) Urine Cocaine (NEGATIVE) Urine Marijuana (THC) (NEGATIVE) Ethyl Alcohol (0-10) mg/dL 02/07/25 02/07/25 02/07/25 Range/Units 05:00 05:00 07:50 WBC 9.9 (3.98-10.04) x10^3/uL RBC 3.40 L (3.93-5.22) x10^6/uL Hgb 10.3 L (11.2-15.7) g/dL Hct 28.9 L (34.1-44.9) % MCV 85.0 (79.4-94.8) fL MCH 30.3 (25.6-32.2) pg MCHC 35.6 H (32.2-35.5) g/dL RDW 11.9 (11.7-14.4) % Plt Count 227 (182-369) x10^3/uL MPV 8.4 L (9.4-12.3) fL Gran % (34.0-71.1) % Immature Gran % (Auto) (0.001-0.429) % Nucleat RBC Rel Count (0.00-0.2) % Eos # (Auto) (0.04-0.36) x10^3/uL Immature Gran # (Auto) (0.001-0.031) x10^3u/L Absolute Lymphs (auto) (1.18-3.74) x10^3/uL Absolute Monos (auto) (0.24-0.86) x10^3/uL Absolute Nucleated RBC (0.00-0.012) x10^3u/L Lymphocytes % (19.3-51.7) % Monocytes % (4.7-12.5) % Eosinophils % (0.7-5.8) % Basophils % (0.1-1.2) % Absolute Granulocytes (1.56-6.13) x10^3/uL Basophils # (0.01-0.08) x10^3/uL Sodium 122 L (135-145) mmol/L Potassium 3.1 L 3.5 (3.5-5.1) mmol/L Chloride 92 L (98-107) mmol/L Carbon Dioxide 24 (22-30) mmol/L Anion Gap 8.9 (5-15) MEQ/L BUN 6 L (7-17) mg/dL Creatinine 0.45 L (0.52-1.04) mg/dL Estimated GFR 109.4 ML/MIN Glucose 138 H (74-106) mg/dL Calcium 7.9 L (8.4-10.2) mg/dL Magnesium (1.6-2.3) mg/dL Total Bilirubin 0.20 (0.2-1.3) mg/dL AST 36 (14-36) U/L ALT 15 (0-35) U/L Alkaline Phosphatase 69 (38-126) U/L Serum Total Protein 6.0 L (6.3-8.2) g/dL Albumin 3.3 L (3.5-5.0) g/dL Prealbumin (17.6-36.0) mg/dL Urine Color (Yellow) Urine Appearance (Clear) Urine pH (4.6-8.0) Ur Specific [place] (1.005-1.030) Urine Protein (Negative) Urine Glucose (UA) (Negative) mg/dL Urine Ketones (Negative) Urine Blood (Negative) Urine Nitrite (Negative) Urine Bilirubin (Negative) Urine Urobilinogen (0.2) mg/dL Ur Leukocyte Esterase (Negative) U Hyaline Cast (Auto) (0-2) /LPF Urine Microscopic RBC (0-5) /HPF Urine Microscopic WBC (0-5) /HPF Ur Epithelial Cells (None Seen) /HPF Urine Bacteria (None Seen) /HPF Urine Culture Reflexed (NO) Urine Sodium (30-90) mmol/L Urine Opiates Level (NEGATIVE) Ur Methadone (NEGATIVE) Urine Barbiturates (NEGATIVE) Ur Phencyclidine (PCP) (NEGATIVE) Urine Amphetamine (NEGATIVE) U Benzodiazepine Level (NEGATIVE) Urine Cocaine (NEGATIVE) Urine Marijuana (THC) (NEGATIVE) Ethyl Alcohol (0-10) mg/dL 02/07/25 Range/Units 07:50 WBC (3.98-10.04) x10^3/uL RBC (3.93-5.22) x10^6/uL Hgb (11.2-15.7) g/dL Hct (34.1-44.9) % MCV (79.4-94.8) fL MCH (25.6-32.2) pg MCHC (32.2-35.5) g/dL RDW (11.7-14.4) % Plt Count (182-369) x10^3/uL MPV (9.4-12.3) fL Gran % (34.0-71.1) % Immature Gran % (Auto) (0.001-0.429) % Nucleat RBC Rel Count (0.00-0.2) % Eos # (Auto) (0.04-0.36) x10^3/uL Immature Gran # (Auto) (0.001-0.031) x10^3u/L Absolute Lymphs (auto) (1.18-3.74) x10^3/uL Absolute Monos (auto) (0.24-0.86) x10^3/uL Absolute Nucleated RBC (0.00-0.012) x10^3u/L Lymphocytes % (19.3-51.7) % Monocytes % (4.7-12.5) % Eosinophils % (0.7-5.8) % Basophils % (0.1-1.2) % Absolute Granulocytes (1.56-6.13) x10^3/uL Basophils # (0.01-0.08) x10^3/uL Sodium (135-145) mmol/L Potassium (3.5-5.1) mmol/L Chloride (98-107) mmol/L Carbon Dioxide (22-30) mmol/L Anion Gap (5-15) MEQ/L BUN (7-17) mg/dL Creatinine (0.52-1.04) mg/dL Estimated GFR ML/MIN Glucose (74-106) mg/dL Calcium (8.4-10.2) mg/dL Magnesium 2.0 (1.6-2.3) mg/dL Total Bilirubin (0.2-1.3) mg/dL AST (14-36) U/L ALT (0-35) U/L Alkaline Phosphatase (38-126) U/L Serum Total Protein (6.3-8.2) g/dL Albumin (3.5-5.0) g/dL Prealbumin (17.6-36.0) mg/dL Urine Color (Yellow) Urine Appearance (Clear) Urine pH (4.6-8.0) Ur Specific [place] (1.005-1.030) Urine Protein (Negative) Urine Glucose (UA) (Negative) mg/dL Urine Ketones (Negative) Urine Blood (Negative) Urine Nitrite (Negative) Urine Bilirubin (Negative) Urine Urobilinogen (0.2) mg/dL Ur Leukocyte Esterase (Negative) U Hyaline Cast (Auto) (0-2) /LPF Urine Microscopic RBC (0-5) /HPF Urine Microscopic WBC (0-5) /HPF Ur Epithelial Cells (None Seen) /HPF Urine Bacteria (None Seen) /HPF Urine Culture Reflexed (NO) Urine Sodium (30-90) mmol/L Urine Opiates Level (NEGATIVE) Ur Methadone (NEGATIVE) Urine Barbiturates (NEGATIVE) Ur Phencyclidine (PCP) (NEGATIVE) Urine Amphetamine (NEGATIVE) U Benzodiazepine Level (NEGATIVE) Urine Cocaine (NEGATIVE) Urine Marijuana (THC) (NEGATIVE) Ethyl Alcohol (0-10) mg/dL Radiology Exams: Radiology Procedures Category Date Time Status FACIAL BONES WO CONTRAST [CT] Stat Exams 02/06/25 14:50 Completed Medications: Medications Generic Name Dose Route Start Last Admin Trade Name Freq PRN Reason Stop Dose Admin Acetaminophen 650 mg 02/07/25 07:55 02/07/25 08:26 Acetaminophen 325 Mg Tablet PO 03/09/25 07:54 650 mg Q6H PRN PRN Administration PAIN AND/OR FEVER Aspirin 81 mg 02/07/25 10:00 02/07/25 09:49 Aspirin 81 Mg Tablet.Ec PO 03/09/25 09:59 81 mg DAILY DARIUS Administration Clopidogrel Bisulfate 75 mg 02/07/25 10:00 02/07/25 09:49 Clopidogrel Bisulfate 75 Mg Tablet PO 03/09/25 09:59 75 mg DAILY DARIUS Administration Cyclobenzaprine HCl 5 mg 02/06/25 22:00 02/07/25 09:48 Cyclobenzaprine Hcl 10 Mg Tablet PO 03/08/25 21:59 5 mg BID DARIUS Administration Device 1 02/08/25 09:30 Therapuetic Drug Level Monitor Each IJ 02/08/25 09:31 1XONLY ONE Diazepam 0 mg 02/06/25 18:03 02/07/25 05:26 Diazepam 5 Mg Tablet PO 03/08/25 18:02 2.5 mg Q2H PRN PRN Administration CIWA SCORE Protocol Enoxaparin Sodium 40 mg 02/07/25 10:00 02/07/25 09:52 Enoxaparin Sodium 40 Mg/0.4 Ml Syringe SQ 03/09/25 09:59 Not Given DAILY DARIUS Folic Acid 1 mg 02/07/25 10:00 02/07/25 09:49 Folic Acid 1 Mg Tablet PO 03/09/25 09:59 1 mg DAILY DARIUS Administration Sodium Chloride 1,000 mls @ 150 mls/hr 02/06/25 15:45 02/07/25 07:44 Sodium Chloride 0.9% 1000 Ml IV 03/08/25 15:44 150 mls/hr .Q6H40M DARIUS Infusion Ceftriaxone Sodium 2 gm in 100 mls @ 200 mls/hr 02/06/25 22:00 02/07/25 09:51 Rocephin 2 Gm/100 Ml Nacl IV 03/08/25 21:59 200 mls/hr Q24H10 DARIUS Administration Vancomycin HCl 500 mg/ Sodium 100 mls @ 100 mls/hr 02/07/25 07:30 02/07/25 07:37 Chloride IV 03/09/25 07:29 100 mls/hr Q8HT DARIUS Administration Lisinopril 10 mg 02/07/25 10:00 02/07/25 09:48 Lisinopril 10 Mg Tablet PO 03/09/25 09:59 10 mg DAILY DARIUS Administration Metoprolol Succinate 50 mg 02/07/25 10:00 02/07/25 09:49 Metoprolol Succinate 50 Mg Tablet.Sa PO 03/09/25 09:59 50 mg DAILY DARIUS Administration Multivitamins Therapeutic 1 tab 02/07/25 10:00 02/07/25 09:49 Multivitamins,Therapeutic 1 Tab Tab PO 03/09/25 09:59 1 tab QAM DARIUS Administration Mupirocin 0 gm 02/07/25 10:00 02/07/25 10:07 Mupirocin 22 Gm Tube Ointment TP 03/09/25 09:59 1 gm DAILY DARIUS Administration Pantoprazole Sodium 40 mg 02/07/25 10:00 02/07/25 09:49 Protonix (Pantoprazole) 40 Mg Tablet PO 03/09/25 09:59 40 mg QAM DARIUS Administration Simvastatin 40 mg 02/06/25 22:00 02/06/25 21:12 Simvastatin 20 Mg Tablet PO 03/08/25 21:59 40 mg HS DARIUS Administration Thiamine HCl 100 mg 02/07/25 10:00 02/07/25 09:49 Thiamine Hcl 100 Mg Tablet PO 03/09/25 09:59 100 mg DAILY DARIUS Administration Discontinued Medications Generic Name Dose Route Start Last Admin Trade Name Vanq PRN Reason Stop Dose Admin Atorvastatin Calcium 40 mg 02/06/25 22:00 Atorvastatin Calcium 40 Mg Tablet PO 03/08/25 21:59 HS DARIUS Diphenhydramine HCl 50 mg 02/07/25 10:00 02/07/25 10:02 Diphenhydramine Hcl 50 Mg/Ml Vial IV 02/07/25 10:01 50 mg STAT ONE Administration Hydromorphone HCl 1 mg 02/06/25 14:53 02/06/25 15:15 Hydromorphone 1 Mg/1ml Inj IV 02/06/25 14:54 1 mg STAT ONE Administration Hydromorphone HCl Confirm 02/06/25 15:13 Hydromorphone 1 Mg/1ml Inj Administered 02/06/25 15:14 Dose 1 mg .ROUTE .STK-MED ONE Hydroxyzine HCl 100 mg 02/06/25 22:00 Hydroxyzine Hcl 25 Mg Tablet PO 03/08/25 21:59 TID DARIUS Magnesium Sulfate/Water 2 gm in 50 mls @ 100 mls/hr 02/06/25 16:17 02/06/25 16:23 Magnesium Sulf 2 G/50 Ml Bag IV 02/06/25 16:46 100 ml/hr ONCE ONE 100 mls/hr Administration Magnesium Sulfate/Water Confirm 02/06/25 16:22 Magnesium Sulf 2 G/50 Ml Bag Administered 02/06/25 16:23 Dose 2 gm in 50 mls @ ud IV .STK-MED ONE Ceftriaxone Sodium 2 gm in 100 mls @ 200 mls/hr 02/07/25 10:00 Rocephin 2 Gm/100 Ml Nacl IV 03/09/25 09:59 [id number] DARIUS Vancomycin HCl 1 gm/ Sodium 250 mls @ 125 mls/hr 02/06/25 16:30 02/06/25 23:15 Chloride IV 03/08/25 16:29 Not Given Q12H DARUIS Vancomycin HCl 0.5 gm/ Sodium 250 mls @ 125 mls/hr 02/06/25 20:00 02/06/25 2 1:32 Chloride IV 03/08/25 19:59 125 mls/hr Q12H DARIUS Administration Sodium Chloride Confirm 02/06/25 21:10 Sodium Chloride 0.9% 250 Ml Administered 02/06/25 21:11 Dose 250 mls @ ud IV .STK-MED ONE Magnesium Sulfate/Dextrose 100 mls @ 200 mls/hr 02/07/25 05:42 02/07/25 05:45 Magnesium 1 Gm / 100 Ml D5w IV 02/07/25 06:11 200 mls/hr STAT ONE Administration Lorazepam 1 mg 02/06/25 14:53 02/06/25 15:14 Lorazepam 2 Mg/1 Ml 2 Mg Vial IV 02/06/25 14:54 1 mg STAT ONE Administration Lorazepam Confirm 02/06/25 15:12 Lorazepam 2 Mg/1 Ml 2 Mg Vial Administered 02/06/25 15:13 Dose 2 mg .ROUTE .STK-MED ONE Nitroglycerin Confirm 02/07/25 04:18 Nitroglycerin 0.4 Mg Tablet Bottle Administered 02/07/25 04:19 Dose 0.4 mg SL .STK-MED ONE Non-Formulary Medication 5 mg 02/06/25 22:00 Cyclobenzaprine Hcl [Cyclobenzaprine Hcl] PO 03/08/25 21:59 BID DARIUS Potassium Chloride 60 meq 02/07/25 05:42 02/07/25 05:46 Potassium Chloride Tab 10 Meq Tab PO 02/07/25 05:43 60 meq STAT ONE Administration Multi-Disciplinary Progress Notes: Multi-Disciplinary Progress Notes 02/07/25 07:41 Pharmacy Note by Murtaza Frost Pharmacokinetic dosing service Date: 02/07/2025 Time: 0700 Objective: Patient: jesus alberto gurrola Floor: 129 Age: 59 yo Serum creatinine: 0.45 mg/dL Height: 61 Inches Weight (kg): 50 Diagnosis: ORBITAL INFECTION Relevant medical/social history: Cultures and sensitivities: Other labs: Assessment: IBW (kg): 47.80 Dosing wt(kg): 50 Estimated Creatinine clearance (ml/min): 99.1 CRCL method: Cockcroft and Gault using ibw(default). Drug selected: Vancomycin Loading dose (mg): 0 Vd (liters): 35.0 (factor used: 0.7 L/kg) Tim (hr-1): 0.087 Half life (hrs): 7.97 Recommended dose: 500 mg Interval: 8 hrs Infusion time (hrs): 1.5 Predicted peak (mcg/mL): 26.7 Predicted trough (mcg/mL): 15.17 Total body weight is being used for vancomycin dosing. Renal function is stable [ ] /unstable [ ] Recommendations: Give Vancomycin 500 mg q 8 hrs with an expected Cpeak of 26.7 mcg/ml and an expected Ctrough of 15.17 mcg/ml Renal dosing of other antibiotics (review renal dosing of other medications and list guidelines here): Thank you for the consult, will continue to follow. Signature: MURTAZA FROST Initialized on 02/07/25 07:41 - END OF NOTE Assessment/Plan (1) Hyponatremia Current Visit: Yes Status: Acute Code(s): E87.1 - HYPO-OSMOLALITY AND HYPONATREMIA (2) Periorbital cellulitis of left eye Current Visit: Yes Status: Acute Code(s): L03.213 - PERIORBITAL CELLULITIS (3) Blister, face Current Visit: Yes Status: Acute Code(s): S00.82XA - BLISTER (NONTHERMAL) OF OTHER PART OF HEAD, INIT ENCNTR (4) Skin lesions Current Visit: Yes Status: Acute Code(s): L98.9 - DISORDER OF THE SKIN AND SUBCUTANEOUS TISSUE, UNSPECIFIED (5) Poor personal hygiene Current Visit: Yes Status: Acute Code(s): R46.0 - VERY LOW LEVEL OF PERSONAL HYGIENE (6) History of alcohol abuse Current Visit: Yes Status: Chronic Code(s): F10.11 - ALCOHOL ABUSE, IN REMISSION (7) Hx of drug abuse Current Visit: Yes Status: Chronic Code(s): F19.11 - OTHER PSYCHOACTIVE SUBSTANCE ABUSE, IN REMISSION (8) HTN (hypertension) Current Visit: Yes Status: Chronic Code(s): I10 - ESSENTIAL (PRIMARY) HYPERTENSION (9) Hyperlipidemia Current Visit: Yes Status: Chronic Code(s): E78.5 - HYPERLIPIDEMIA, UNSPECIFIED (10) Smoker Current Visit: Yes Status: Chronic Code(s): F17.200 - NICOTINE DEPENDENCE, UNSPECIFIED, UNCOMPLICATED (11) Depression Current Visit: Yes Status: Chronic Assessment & Plan: (1) Hyponatremia Current Visit: Yes Status: Acute Assessment & Plan: - Do not correct Na+ faster than 6-12 meq/L per day - Seizure precautions - ICU-Tele - IVF reduced to 150 ml/hr, was running at 200ml/hr in ER - Nephrology COnsult - Urine NA+, Serum and urine osmo- pending - UA pending - 2:2 beer potomania- drinks 15-18 beers per day - Repeat Na+ Q6 hours 02/07 - Awaiting nephro recs - Repeat Na+ Q6 hours - NS at 150ml/hr - UA reviewed - CBC, CMP reviewed - Na+ 122 today - Urine Na+ 17 Code(s): E87.1 - HYPO-OSMOLALITY AND HYPONATREMIA (2) Periorbital cellulitis of left eye Current Visit: Yes Status: Acute Assessment & Plan: - IV antibiotics - IVF - CBC, CMP reviewed - CT facial bones: 1. Left facial soft tissue swelling presumed clinically reported cellulitis. 2. Incidental left maxillary sinus disease, nasal septal deviation, right middle turbinate rupesh bullosa, and osteopenia. 3. Remaining CT facial bones is negative. 02/07 - BL edema of eyes - Benadryl IV x1 Code(s): L03.213 - PERIORBITAL CELLULITIS (3) Blister, face Current Visit: Yes Status: Acute Assessment & Plan: - Left side of face large blister - Nurse to take pics for chart - Pt denies any recent drug use or dental infection and reports she has dentures . 02/07 - Blister draining clear output and improved overnight Code(s): S00.82XA - BLISTER (NONTHERMAL) OF OTHER PART OF HEAD, INIT ENCNTR (4) Skin lesions Current Visit: Yes Status: Acute Assessment & Plan: - Multiple skin lesions of chest and back - Consider ointment if lesions do not improve. - Wound culture pending 02/07 - WC negative- done before chlorhexidine bath - Bath this AM - Mupirocin cream to lesions - Contact Isolation - Denies STI type lesions or concerns - Nurse obtain order for Syphilis test last night per note- order placed today for AM lab as this was not completed last night. Code(s): L98.9 - DISORDER OF THE SKIN AND SUBCUTANEOUS TISSUE, UNSPECIFIED (5) Poor personal hygiene Current Visit: Yes Status: Acute Assessment & Plan: - Pt has poor personal hygiene and malodorous. - Bath pt with chlorhexidine d/t multiple lesions of skin. - Case management consult. 02/07 - Chlorhexidine bath completed today by day shift staff Code(s): R46.0 - VERY LOW LEVEL OF PERSONAL HYGIENE (6) History of alcohol abuse Current Visit: Yes Status: Chronic Assessment & Plan: - Alcohol level negative - Per family pt drinks 15-18 beers per day - She reports drinking 1 beer today - Alcohol withdrawal protocol ordered- discussed with pt. - Pt states she does note feel like she has a problem and does not want treatment. - Explained this amount of beer consumption is a problem and she should consider treatment. - Iron labs, Vitamin D level Code(s): F10.11 - ALCOHOL ABUSE, IN REMISSION (7) Hx of drug abuse Current Visit: Yes Status: Chronic Assessment & Plan: - UDS ordered - Pt reports no recent drug use - + blister on left side of face- looks like a burn - Abnormal lesion on left chest and back 02/07 - UDS negative Code(s): F19.11 - OTHER PSYCHOACTIVE SUBSTANCE ABUSE, IN REMISSION (8) HTN (hypertension) Current Visit: Yes Status: Chronic Assessment & Plan: - BP stable - Continue home med Code(s): I10 - ESSENTIAL (PRIMARY) HYPERTENSION (9) Hyperlipidemia Current Visit: Yes Status: Chronic Assessment & Plan: - Continue statin Code(s): E78.5 - HYPERLIPIDEMIA, UNSPECIFIED (10) Smoker Current Visit: Yes Status: Chronic Assessment & Plan: - Advised cessation - If Na+ level improves may consider nicotine patch- hold for now as nicotine can lower Na+ level. Code(s): F17.200 - NICOTINE DEPENDENCE, UNSPECIFIED, UNCOMPLICATED (11) Depression Current Visit: Yes Status: Chronic Assessment & Plan: - Pt reports she is not currently taking anything for this and self medicates with beer. - Pt denies homicidal or suicidal ideation VTE: Lovenox PPI: Protonix Next of KIN: Jose Gurrola- Child D/C plan: 1-2 days Code status: Full Mgnt and plan of care time > 45 Code(s): F32.A - DEPRESSION, UNSPECIFIED Code(s): F32.A - DEPRESSION, UNSPECIFIED
[2025-02-07] MEDS: Acidophilus TABLET PO SCH (13:43)
[2025-02-07 14:14] LABS: Ferritin 184.0 ng/mL (11.1-264)
[2025-02-07 14:34] LABS: Iron 33 ug/dL (37-170); TIBC 232 ug/dL (265-462)
[2025-02-08 08:09] LABS: Hematocrit 26.5 % (34.1-44.9); Hemoglobin 9.2 g/dL (11.2-15.7); Mean Corpuscular Hemoglobin 30.2 pg (25.6-32.2); Mean Corpuscular Hgb Concent. 34.7 g/dL (32.2-35.5); Platelet Count 224 x10^3/uL (182-369); Red Blood Count 3.05 x10^6/uL (3.93-5.22); White Blood Count 8.4 x10^3/uL (3.98-10.04)
[2025-02-08 08:16] LABS: Calcium 8.0 mg/dL (8.4-10.2); Carbon Dioxide 20.0 mmol/L (22-30); Creatinine 1 0.41 mg/dL (0.52-1.04); EST GLOMERULAR FILTRATION RATE 111.9 ML/MIN; Glucose 103.0 mg/dL (74-106); Potassium 3.6 mmol/L (3.5-5.1); SGOT/AST 30.0 U/L (14-36); SGPT/ALT 18.0 U/L (0-35); Total Protein 5.7 g/dL (6.3-8.2)
[2025-02-08] MEDS: TROUGH DRUG LEVELS IJ ONE (08:18)
[2025-02-08] MEDS: BENADRYL 50 MG/ML IV ONE (08:22)
[2025-02-08] MEDS: VITAMIN D PO SCH (09:11)
--- NOTE | 2025-02-08 11:06 | PCM.NOTE ---
Date and Time: 02/08/25 1100 Subjective Assessment: 02/06/25 is a 59 year old female with PMHX of depression, HTN, hyperlipidemia, OA, GERD, diverticulitis, and daily smoker. The patient presented to the ER with a temperature of 100F and noticeable swelling and erythema in the left cheek and periorbital area. There is also blistering on the cheek, and the affected area is warm, tender to palpation and percussion, and appears consistent with cellulitis. She reports moderate to severe pain, particularly in the forehead and cheek, which has persisted for the past couple of days. The symptoms were not alleviated by any interventions and do not worsen with specific activities. Earlier today, the patient was seen at [facility] in [place] and discharged with a diagnosis of sinusitis. However, due to worsening symptoms, she presented to [facility], where she was started on Ceftriaxone and Vancomycin in the emergency department for presumed periorbital cellulitis. A CT scan of the facial bones revealed left facial soft tissue swelling consistent with cellulitis. Additional incidental findings included left maxillary sinus disease, nasal septal deviation, right middle turbinate rupesh bullosa, and osteopenia. She has mutiple skin lesions of body and blister to left side of face. She has a hx of drug abouse but denies any recent use. The patient was found to have severe hyponatremia with a sodium level of 117. She has a known history of hyponatremia, with prior values averaging around 132, but has not previously had a level this low. 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 Normal saline was initiated at 200 mL/hr in the ED, and nephrology was consulted for further evaluation and management.. Laboratory values will be rechecked every 6 hours. The patient is being admitted to the ICU for close monitoring and continued care. 02/07/25 The patient was found resting in bed this morning. She did not receive a chlorhexidine bath yesterday or overnight, despite it being ordered. When asked, the overnight nurse explained that the bath was not completed because the superintendent meters [employer] was unwilling to assist, and the nurse preferred to wait for assistance from the morning nurse. However, that nurse had been placed fabrication lead so it was not done. Chlorhexidine bathing is essential in this patients care plan due to its role in reducing bacterial load, minimizing infection risk (including MRSA), and ensuring the accuracy of wound swabs and cultures. Delayed bathing may compromise wound care and increase the risk of healthcare-associated infections. The patient remains on the CIWA protocol and required medication for it overnight. She continues to receive sodium level monitoring every six hours. Her sodium this morning is 122, and we will continue NS at 150 mL/hour. Her potassium level was 3.1 and has been repleted, with ongoing monitoring planned. The patient remains on vancomycin and ceftriaxone; her white blood cell count is within normal limits. Nephrology was consulted yesterday, and we are awaiting their recommendations. Facial edema has slightly improved overall, though periorbital swelling has worsened. The patient reports that a blister on the left side of her face has been draining clear fluid throughout the night, which she has been managing with sterile 4x4 dressings. Staff assisted her with a shower this morning, during which she used chlorhexidine wash. Nursing documented multiple lesions on the left chest and back; photographs have been taken. Mupirocin cream was initiated, as the lesions appear consistent with a staph-type infection, possibly impetigo. The patient has been placed on contact precautions. Urine sodium is 17; further labs are pending to assess for SIADH, though her hyponatremia is likely due to beer potomania. The patient denies any additional concerns at this time. 02/08/25 The patient is resting in bed and appears more comfortable today. Her periorbital cellulitis has shown significant improvement, with swelling now primarily localized under both eyes. She continues to have clear drainage from a blister on her left cheek, for which a Mepilex dressing has been applied. Nephrology was consulted and recommended a 1,500 mL fluid restriction; IV fluids have been discontinued. Although the patient initially refused lab work this morning, she ultimately agreed after speaking with nursing staff. Her sodium level today is 126 and trending upward. She required two doses of Valium overnight per CIWA protocol for alcohol withdrawal symptoms. Due to persistent edema, another dose of Benadryl will be given today, as the patient reported symptom relief following yesterdays dose. Antibiotics will be continued, and discharge is anticipated within the next one to two days. Pt can transfer out of ICU bed today and be placed in med-surg. Pt did wash with chlorhexidine today. - Review of Systems Constitutional: No Fever, No Chills Eyes: No Symptoms, Other (edema under eyes) Ears, Nose, & Throat: No Symptoms Respiratory: No Cough, No Short Of Breath Cardiac: No Chest Pain, No Edema, No Syncope Abdominal/Gastrointestinal: No Abdominal Pain, No Nausea, No Vomiting, No Diarrhea Genitourinary Symptoms: No Dysuria Musculoskeletal: No Back Pain, No Neck Pain Skin: No Rash Neurological: No Dizziness, No Focal Weakness, No Sensory Changes Psychological: No Symptoms Endocrine: No Symptoms Hematologic/Lymphatic: No Symptoms Immunological/Allergic: No Symptoms Objective Exam General Appearance: no apparent distress, alert Neurologic Exam: alert, oriented x 3, cooperative, normal mood/affect, nml cerebellar function, sensation nml, agitation, No motor deficits Skin Exam: normal color, warm, dry, other (blister on left side of face, edema under eyes, mutliple skins lesions on chest and back appears to be healing- crusted and circular with red middle.) Wound Assessment: Skin/Wound Assessment Wound/Incision Assessment Start: 02/06/25 19:43 Text: Status: Active Freq: Q6H Protocol: Document 02/08/25 08:00 [facility] (Rec: 02/08/25 09:30 [facility] [id number]) Wound/Incision Assessment Bilateral Periorbital Wound Assessment Shift Assessment Wound Type Cellulitis Wound Stage Non Pressure Wound Drainage Amount Minimal Drainage Description Serous General Appearance Open to air,Reddened,Draining Surrounding Tissue Edematous Comment Patient face clensed with Hibiclens. Right eye draining serous fluid. Left Cheek Wound Assessment Shift Assessment Wound Type Cellulitis Wound Stage Non Pressure Wound Drainage Amount Minimal Drainage Description Serous Drainage Odor None/Absent General Appearance Clean/Dry,Reddened,Draining Surrounding Tissue Edematous Primary Dressing Mepilex Comment Patient face clensed with Hibiclens and new Mepilex placed Left Axilla Wound Assessment Shift Assessment Wound Type Lesions Wound Stage Non Pressure Wound Drainage Amount None General Appearance Open to air,Clean/Dry,Reddened Wound Bed Greatest Portion Yellow (Slough) Surrounding Tissue Bright Red Comment 3 lesions clensed with Hibiclens and Mupirocin ointment applied UD. Left Posterior Shoulder Wound Assessment Shift Assessment Wound Type Lesions Wound Stage Non Pressure Wound Drainage Amount None General Appearance Open to air,Clean/Dry,Reddened Surrounding Tissue Bright Red Comment 5 lesions clensed with Hibiclens and Mupirocin ointment applied UD. Wound Photo Photo Taken No Eye Exam: PERRL, EOMI, eyes nml inspection Ears, Nose, Throat Exam: normal ENT inspection, pharynx normal, moist mucous membranes Neck Exam: normal inspection, non-tender, supple, full range of motion Respiratory Exam: normal breath sounds, lungs clear, No respiratory distress Cardiovascular Exam: regular rate/rhythm, normal heart sounds Gastrointestinal/Abdomen Exam: soft, No tenderness, No mass Extremity Exam: normal inspection, normal range of motion Back Exam: normal inspection, normal range of motion, No CVA tenderness, No vertebral tenderness Pelvic Exam: deferred Rectal Exam: deferred Objective Data Vital Signs: Vital Signs - 24 hr Temp Pulse Resp BP Pulse Ox 02/08/25 10:00 79 25 H 160/83 02/08/25 09:35 77 24 131/98 94 L 02/08/25 09:33 78 02/08/25 08:00 89 19 153/104 95 02/08/25 07:53 22 02/08/25 07:00 99.0 F 81 28 H 152/91 93 L 02/08/25 06:08 77 19 163/106 98 02/08/25 06:07 86 25 H 96 02/08/25 06:06 94 H 15 95 02/08/25 05:00 76 25 H 143/93 95 02/08/25 04:00 77 17 143/103 96 02/08/25 03:42 70 10 L 133/79 02/08/25 03:00 74 15 133/84 94 L 02/08/25 02:00 73 43 H 138/81 92 L 02/08/25 01:00 74 17 142/90 96 02/08/25 00:01 73 19 131/100 96 02/08/25 00:00 15 02/07/25 23:06 77 14 159/101 95 02/07/25 23:04 89 21 156/107 96 02/07/25 22:01 83 21 150/80 94 L 02/07/25 21:00 81 22 124/78 94 L 02/07/25 20:00 86 17 114/74 96 02/07/25 19:39 86 21 113/73 96 02/07/25 19:33 97 02/07/25 19:00 83 21 125/74 96 02/07/25 18:00 89 17 135/88 94 L 02/07/25 17:59 96 02/07/25 17:00 79 18 129/76 02/07/25 16:01 82 18 125/44 96 02/07/25 16:00 80 16 02/07/25 15:00 79 24 135/84 96 02/07/25 14:01 83 19 115/69 97 02/07/25 13:00 87 20 117/66 94 L 02/07/25 12:15 97.6 F 84 21 114/71 96 02/07/25 12:10 79 18 96 02/07/25 12:03 78 19 97 02/07/25 12:00 85 18 Pain Assessment - Last Documented Pain Intensity 6 Pain Scale Used 0-10 Pain Scale Intake and Output: Intake & Output 02/05/25 02/06/25 02/07/25 02/08/25 11:59 11:59 11:59 11:59 Intake Total 3733 5271 Output Total 3275 1400 Balance 458 3871 Weight 50.7 kg 65.1 kg Lab Results: Lab Results-Last 24 Hours 02/07/25 02/07/25 02/07/25 Range/Units 00:13 00:13 12:00 WBC (3.98-10.04) x10^3/uL RBC (3.93-5.22) x10^6/uL Hgb (11.2-15.7) g/dL Hct (34.1-44.9) % MCV (79.4-94.8) fL MCH (25.6-32.2) pg MCHC (32.2-35.5) g/dL RDW (11.7-14.4) % Plt Count (182-369) x10^3/uL MPV (9.4-12.3) fL Sodium 124 L (135-145) mmol/L Potassium (3.5-5.1) mmol/L Chloride (98-107) mmol/L Carbon Dioxide (22-30) mmol/L Anion Gap (5-15) MEQ/L BUN (7-17) mg/dL Creatinine (0.52-1.04) mg/dL Estimated GFR ML/MIN Glucose (74-106) mg/dL Calcium (8.4-10.2) mg/dL Iron 33 L (37-170) ug/dL TIBC 232 L (265-462) ug/dL Iron Saturation 14 L (20-39) % Ferritin 184 (11.1-264) ng/mL Total Bilirubin (0.2-1.3) mg/dL AST (14-36) U/L ALT (0-35) U/L Alkaline Phosphatase (38-126) U/L Serum Total Protein (6.3-8.2) g/dL Albumin (3.5-5.0) g/dL Vitamin B12 254 (239-931) pg/mL 25-OH Vitamin D Total (30-100) ng/mL Folic Acid 14.4 (2.76 - >20) ng/mL Vancomycin Trough (10-20) ug/mL 02/07/25 02/08/25 02/08/25 Range/Units 18:10 00:27 05:30 WBC (3.98-10.04) x10^3/uL RBC (3.93-5.22) x10^6/uL Hgb (11.2-15.7) g/dL Hct (34.1-44.9) % MCV (79.4-94.8) fL MCH (25.6-32.2) pg MCHC (32.2-35.5) g/dL RDW (11.7-14.4) % Plt Count (182-369) x10^3/uL MPV (9.4-12.3) fL Sodium 127 L 125 L (135-145) mmol/L Potassium (3.5-5.1) mmol/L Chloride (98-107) mmol/L Carbon Dioxide (22-30) mmol/L Anion Gap (5-15) MEQ/L BUN (7-17) mg/dL Creatinine (0.52-1.04) mg/dL Estimated GFR ML/MIN Glucose (74-106) mg/dL Calcium (8.4-10.2) mg/dL Iron (37-170) ug/dL TIBC (265-462) ug/dL Iron Saturation (20-39) % Ferritin (11.1-264) ng/mL Total Bilirubin (0.2-1.3) mg/dL AST (14-36) U/L ALT (0-35) U/L Alkaline Phosphatase (38-126) U/L Serum Total Protein (6.3-8.2) g/dL Albumin (3.5-5.0) g/dL Vitamin B12 (239-931) pg/mL 25-OH Vitamin D Total (30-100) ng/mL Folic Acid (2.76 - >20) ng/mL Vancomycin Trough 21.36 H (10-20) ug/mL 02/08/25 02/08/25 02/08/25 Range/Units 05:30 07:59 07:59 WBC 8.4 (3.98-10.04) x10^3/uL RBC 3.05 L (3.93-5.22) x10^6/uL Hgb 9.2 L (11.2-15.7) g/dL Hct 26.5 L (34.1-44.9) % MCV 86.9 (79.4-94.8) fL MCH 30.2 (25.6-32.2) pg MCHC 34.7 (32.2-35.5) g/dL RDW 12.1 (11.7-14.4) % Plt Count 224 (182-369) x10^3/uL MPV 8.5 L (9.4-12.3) fL Sodium 126 L (135-145) mmol/L Potassium 3.6 (3.5-5.1) mmol/L Chloride 100 (98-107) mmol/L Carbon Dioxide 20 L (22-30) mmol/L Anion Gap 9.4 (5-15) MEQ/L BUN 2 L (7-17) mg/dL Creatinine 0.41 L (0.52-1.04) mg/dL Estimated GFR 111.9 ML/MIN Glucose 103 (74-106) mg/dL Calcium 8.0 L (8.4-10.2) mg/dL Iron (37-170) ug/dL TIBC (265-462) ug/dL Iron Saturation (20-39) % Ferritin (11.1-264) ng/mL Total Bilirubin 0.20 (0.2-1.3) mg/dL AST 30 (14-36) U/L ALT 18 (0-35) U/L Alkaline Phosphatase 70 (38-126) U/L Serum Total Protein 5.7 L (6.3-8.2) g/dL Albumin 3.0 L (3.5-5.0) g/dL Vitamin B12 (239-931) pg/mL 25-OH Vitamin D Total 19.9 L (30-100) ng/mL Folic Acid (2.76 - >20) ng/mL Vancomycin Trough (10-20) ug/mL Radiology Exams: Radiology Procedures Category Date Time Status FACIAL BONES WO CONTRAST [CT] Stat Exams 02/06/25 14:50 Completed Medications: Medications Generic Name Dose Route Start Last Admin Trade Name Freq PRN Reason Stop Dose Admin Acetaminophen 650 mg 02/07/25 07:55 02/07/25 21:12 Acetaminophen 325 Mg Tablet PO 03/09/25 07:54 650 mg Q6H PRN PRN Administration PAIN AND/OR FEVER Aspirin 81 mg 02/07/25 10:00 02/08/25 09:10 Aspirin 81 Mg Tablet.Ec PO 03/09/25 09:59 81 mg DAILY DARIUS Administration Cholecalciferol 1,000 unit 02/08/25 10:00 02/08/25 09:11 Cholecalciferol (Vitamin D3) 1000 Unit Tablet PO 03/10/25 09:59 1,000 unit DAILY DARIUS Administration Clopidogrel Bisulfate 75 mg 02/07/25 10:00 02/08/25 09:11 Clopidogrel Bisulfate 75 Mg Tablet PO 03/09/25 09:59 75 mg DAILY DARIUS Administration Cyclobenzaprine HCl 5 mg 02/06/25 22:00 02/08/25 09:11 Cyclobenzaprine Hcl 10 Mg Tablet PO 03/08/25 21:59 5 mg BID DARIUS Administration Diazepam 0 mg 02/06/25 18:03 02/08/25 06:21 Diazepam 5 Mg Tablet PO 03/08/25 18:02 2.5 mg Q2H PRN PRN Administration CIWA SCORE Protocol Enoxaparin Sodium 40 mg 02/07/25 10:00 02/08/25 09:12 Enoxaparin Sodium 40 Mg/0.4 Ml Syringe SQ 03/09/25 09:59 Not Given DAILY DARIUS Folic Acid 1 mg 02/07/25 10:00 02/08/25 09:12 Folic Acid 1 Mg Tablet PO 03/09/25 09:59 1 mg DAILY DARIUS Administration Ceftriaxone Sodium 2 gm in 100 mls @ 200 mls/hr 02/06/25 22:00 02/08/25 08:25 Rocephin 2 Gm/100 Ml Nacl IV 03/08/25 21:59 200 mls/hr Q24H10 DARIUS Administration Vancomycin HCl 500 mg/ Sodium 100 mls @ 100 mls/hr 02/08/25 18:00 Chloride IV 03/10/25 17:59 Q12H DARIUS Lactobacillus Acidophilus 1 tab 02/07/25 12:47 02/08/25 09:11 Lactobacillus Acidophilus 1 Tab Tablet PO 03/09/25 12:46 1 tab DAILY DARIUS Administration Lisinopril 10 mg 02/07/25 10:00 02/08/25 08:21 Lisinopril 10 Mg Tablet PO 03/09/25 09:59 10 mg DAILY DARIUS Administration Metoprolol Succinate 50 mg 02/07/25 10:00 02/08/25 08:21 Metoprolol Succinate 50 Mg Tablet.Sa PO 03/09/25 09:59 50 mg DAILY DARIUS Administration Multivitamins Therapeutic 1 tab 02/07/25 10:00 02/08/25 09:12 Multivitamins,Therapeutic 1 Tab Tab PO 03/09/25 09:59 1 tab QAM DARIUS Administration Mupirocin 0 gm 02/07/25 10:00 02/08/25 09:12 Mupirocin 22 Gm Tube Ointment TP 03/09/25 09:59 1 gm DAILY DARIUS Administration Pantoprazole Sodium 40 mg 02/07/25 10:00 02/08/25 09:12 Protonix (Pantoprazole) 40 Mg Tablet PO 03/09/25 09:59 40 mg QAM DARIUS Administration Simvastatin 40 mg 02/06/25 22:00 02/07/25 21:07 Simvastatin 20 Mg Tablet PO 03/08/25 21:59 40 mg HS DARIUS Administration Thiamine HCl 100 mg 02/07/25 10:00 02/08/25 09:11 Thiamine Hcl 100 Mg Tablet PO 03/09/25 09:59 100 mg DAILY DARIUS Administration Discontinued Medications Generic Name Dose Route Start Last Admin Trade Name Freq PRN Reason Stop Dose Admin Atorvastatin Calcium 40 mg 02/06/25 22:00 Atorvastatin Calcium 40 Mg Tablet PO 03/08/25 21:59 HS DARIUS Device 1 02/08/25 09:30 02/08/25 08:18 Therapuetic Drug Level Monitor Each IJ 02/08/25 09:31 1 1XONLY ONE Administration Diphenhydramine HCl 50 mg 02/07/25 10:00 02/07/25 10:02 Diphenhydramine Hcl 50 Mg/Ml Vial IV 02/07/25 10:01 50 mg STAT ONE Administration Diphenhydramine HCl 50 mg 02/08/25 08:15 02/08/25 08:22 Diphenhydramine Hcl 50 Mg/Ml Vial IV 02/08/25 08:16 50 mg STAT ONE Administration Hydromorphone HCl 1 mg 02/06/25 14:53 02/06/25 15:15 Hydromorphone 1 Mg/1ml Inj IV 02/06/25 14:54 1 mg STAT ONE Administration Hydromorphone HCl Confirm 02/06/25 15:13 Hydromorphone 1 Mg/1ml Inj Administered 02/06/25 15:14 Dose 1 mg .ROUTE .STK-MED ONE Hydroxyzine HCl 100 mg 02/06/25 22:00 Hydroxyzine Hcl 25 Mg Tablet PO 03/08/25 21:59 TID DARIUS Sodium Chloride 1,000 mls @ 150 mls/hr 02/06/25 15:45 02/08/25 08:30 Sodium Chloride 0.9% 1000 Ml IV 03/08/25 15:44 Not Given .Q6H40M DARIUS Magnesium Sulfate/Water 2 gm in 50 mls @ 100 mls/hr 02/06/25 16:17 02/06/25 16:23 Magnesium Sulf 2 G/50 Ml Bag IV 02/06/25 16:46 100 ml/hr ONCE ONE 100 mls/hr Administration Magnesium Sulfate/Water Confirm 02/06/25 16:22 Magnesium Sulf 2 G/50 Ml Bag Administered 02/06/25 16:23 Dose 2 gm in 50 mls @ ud IV .STK-MED ONE Ceftriaxone Sodium 2 gm in 100 mls @ 200 mls/hr 02/07/25 10:00 Rocephin 2 Gm/100 Ml Nacl IV 03/09/25 09:59 Q24H10 DARIUS Vancomycin HCl 1 gm/ Sodium 250 mls @ 125 mls/hr 02/06/25 16:30 02/06/25 23:15 Chloride IV 03/08/25 16:29 Not Given Q12H DARIUS Vancomycin HCl 0.5 gm/ Sodium 250 mls @ 125 mls/hr 02/06/25 20:00 02/06/25 21:32 Chloride IV 03/08/25 19:59 125 mls/hr Q12H DARIUS Administration Sodium Chloride Confirm 02/06/25 21:10 Sodium Chloride 0.9% 250 Ml Administered 02/06/25 21:11 Dose 250 mls @ ud IV .STK-MED ONE Magnesium Sulfate/Dextrose 100 mls @ 200 mls/hr 02/07/25 05:42 02/07/25 05:45 Magnesium 1 Gm / 100 Ml D5w IV 02/07/25 06:11 200 mls/hr STAT ONE Administration Vancomycin HCl 500 mg/ Sodium 100 mls @ 100 mls/hr 02/07/25 07:30 02/08/25 05:11 Chloride IV 03/09/25 07:29 100 mls/hr Q8HT DARIUS Administration Lorazepam 1 mg 02/06/25 14:53 02/06/25 15:14 Lorazepam 2 Mg/1 Ml 2 Mg Vial IV 02/06/25 14:54 1 mg STAT ONE Administration Lorazepam Confirm 02/06/25 15:12 Lorazepam 2 Mg/1 Ml 2 Mg Vial Administered 02/06/25 15:13 Dose 2 mg .ROUTE .STK-MED ONE Nitroglycerin Confirm 02/07/25 04:18 Nitroglycerin 0.4 Mg Tablet Bottle Administered 02/07/25 04:19 Dose 0.4 mg SL .STK-MED ONE Non-Formulary Medication 5 mg 02/06/25 22:00 Cyclobenzaprine Hcl [Cyclobenzaprine Hcl] PO 03/08/25 21:59 BID DARIUS Potassium Chloride 60 meq 02/07/25 05:42 02/07/25 05:46 Potassium Chloride Tab 10 Meq Tab PO 02/07/25 05:43 60 meq STAT ONE Administration Multi-Disciplinary Progress Notes: Multi-Disciplinary Progress Notes 02/08/25 07:30 Pharmacy Note by Darrell West Vancomycin trough high at 21.36. Will decrease to q12h dosing. Initialized on 02/08/25 07:30 - END OF NOTE Assessment/Plan (1) Hyponatremia Current Visit: Yes Status: Acute Code(s): E87.1 - HYPO-OSMOLALITY AND HYPONATREMIA (2) Periorbital cellulitis of left eye Current Visit: Yes Status: Acute Code(s): L03.213 - PERIORBITAL CELLULITIS (3) Blister, face Current Visit: Yes Status: Acute Code(s): S00.82XA - BLISTER (NONTHERMAL) OF OTHER PART OF HEAD, INIT ENCNTR (4) Skin lesions Current Visit: Yes Status: Acute Code(s): L98.9 - DISORDER OF THE SKIN AND SUBCUTANEOUS TISSUE, UNSPECIFIED (5) Poor personal hygiene Current Visit: Yes Status: Acute Code(s): R46.0 - VERY LOW LEVEL OF PERSONAL HYGIENE (6) History of alcohol abuse Current Visit: Yes Status: Chronic Code(s): F10.11 - ALCOHOL ABUSE, IN REMISSION (7) Hx of drug abuse Current Visit: Yes Status: Chronic Code(s): F19.11 - OTHER PSYCHOACTIVE SUBSTANCE ABUSE, IN REMISSION (8) HTN (hypertension) Current Visit: Yes Status: Chronic Code(s): I10 - ESSENTIAL (PRIMARY) HYPERTENSION (9) Hyperlipidemia Current Visit: Yes Status: Chronic Code(s): E78.5 - HYPERLIPIDEMIA, UNSPECIFIED (10) Smoker Current Visit: Yes Status: Chronic Code(s): F17.200 - NICOTINE DEPENDENCE, UNSPECIFIED, UNCOMPLICATED (11) Depression Current Visit: Yes Status: Chronic Assessment & Plan: (1) Hyponatremia Current Visit: Yes Status: Acute Assessment & Plan: - Do not correct Na+ faster than 6-12 meq/L per day - Seizure precautions - ICU-Tele - IVF reduced to 150 ml/hr, was running at 200ml/hr in ER - Nephrology COnsult - Urine NA+, Serum and urine osmo- pending - UA pending - 2:2 beer potomania- drinks 15-18 beers per day - Repeat Na+ Q6 hours 02/07 - Awaiting nephro recs - Repeat Na+ Q6 hours - NS at 150ml/hr - UA reviewed - CBC, CMP reviewed - Na+ 122 today - Urine Na+ 17 02/08 - Na+ 125 - Continue Q6 sodium checks - Nephrology placed pt on 1,500 fluid restriction and IVF stopped - Pt to be moved out of ICU to med-surg tele - CBC, CMP reviewed Code(s): E87.1 - HYPO-OSMOLALITY AND HYPONATREMIA (2) Periorbital cellulitis of left eye Current Visit: Yes Status: Acute Assessment & Plan: - IV antibiotics - IVF - CBC, CMP reviewed - CT facial bones: 1. Left facial soft tissue swelling presumed clinically reported cellulitis. 2. Incidental left maxillary sinus disease, nasal septal deviation, right middle turbinate rupesh bullosa, and osteopenia. 3. Remaining CT facial bones is negative. 02/07 - BL edema of eyes - Benadryl IV x1 02/08 - Improving- edema now under eyes - Benadryl IV x1 - WC negative Code(s): L03.213 - PERIORBITAL CELLULITIS (3) Blister, face Current Visit: Yes Status: Acute Assessment & Plan: - Left side of face large blister - Nurse to take pics for chart - Pt denies any recent drug use or dental infection and reports she has dentures. 02/07 - Blister draining clear output and improved overnight - Mepilex for drainage 02/08 - WC negative Code(s): S00.82XA - BLISTER (NONTHERMAL) OF OTHER PART OF HEAD, INIT ENCNTR (4) Skin lesions Current Visit: Yes Status: Acute Assessment & Plan: - Multiple skin lesions of chest and back - Consider ointment if lesions do not improve. - Wound culture pending 02/07 - negative- done before chlorhexidine bath - Bath this AM - Mupirocin cream to lesions - Contact Isolation - Denies STI type lesions or concerns - Nurse obtain order for Syphilis test last night per note- order placed today for AM lab as this was not completed last night. 02/08 - Chlorhexidine bath - Wounds appear to be healing Code(s): L98.9 - DISORDER OF THE SKIN AND SUBCUTANEOUS TISSUE, UNSPECIFIED (5) Poor personal hygiene Current Visit: Yes Status: Acute Assessment & Plan: - Pt has poor personal hygiene and malodorous. - Bath pt with chlorhexidine d/t multiple lesions of skin. - Case management consult. 02/07 - Chlorhexidine bath completed today by day shift staff 02/08 - Chlorhexidine bath Code(s): R46.0 - VERY LOW LEVEL OF PERSONAL HYGIENE (6) History of alcohol abuse Current Visit: Yes Status: Chronic Assessment & Plan: - Alcohol level negative - Per family pt drinks 15-18 beers per day - She reports drinking 1 beer today - Alcohol withdrawal protocol ordered- discussed with pt. - Pt states she does note feel like she has a problem and does not want treatment. - Explained this amount of beer consumption is a problem and she should consider treatment. - Iron labs, Vitamin D level 02/08 - Pt required valium x2 last night for sxs Code(s): F10.11 - ALCOHOL ABUSE, IN REMISSION (7) Hx of drug abuse Current Visit: Yes Status: Chronic Assessment & Plan: - UDS ordered - Pt reports no recent drug use - + blister on left side of face- looks like a burn - Abnormal lesion on left chest and back 02/07 - UDS negative Code(s): F19.11 - OTHER PSYCHOACTIVE SUBSTANCE ABUSE, IN REMISSION (8) HTN (hypertension) Current Visit: Yes Status: Chronic Assessment & Plan: - BP stable - Continue home med 02/08 - Bp elevated - IVF stopped - Trend Code(s): I10 - ESSENTIAL (PRIMARY) HYPERTENSION (9) Hyperlipidemia Current Visit: Yes Status: Chronic Assessment & Plan: - Continue statin Code(s): E78.5 - HYPERLIPIDEMIA, UNSPECIFIED (10) Smoker Current Visit: Yes Status: Chronic Assessment & Plan: - Advised cessation - If Na+ level improves may consider nicotine patch- hold for now as nicotine can lower Na+ level. Code(s): F17.200 - NICOTINE DEPENDENCE, UNSPECIFIED, UNCOMPLICATED (11) Depression Current Visit: Yes Status: Chronic Assessment & Plan: - Pt reports she is not currently taking anything for this and self medicates with beer. - Pt denies homicidal or suicidal ideation Code(s): F32.A - DEPRESSION, UNSPECIFIED Code(s): F32.A - DEPRESSION, UNSPECIFIED (12) Iron deficiency anemia Current Visit: Yes Status: Acute Assessment & Plan: - Daily ferrous sulfate started - Iron panel reviewed - Iron sat 14, Fe+ 33 - Hgb 9.2 Code(s): D50.9 - IRON DEFICIENCY ANEMIA, UNSPECIFIED (13) Vitamin D deficiency Current Visit: Yes Status: Acute Assessment & Plan: - Vitamin D 19.9- daily replacement ordered - Will need OP f/u- education provided VTE: Lovenox PPI: Protonix Next of KIN: Jose Gurrola- Child D/C plan: 1-2 days Code status: Full Mgnt and plan of care time > 45 Code(s): E55.9 - VITAMIN D DEFICIENCY, UNSPECIFIED
[2025-02-08] MEDS: FEOSOL 325 MG PO SCH (14:05)
[2025-02-08] MEDS: VANCOCIN 500 MG VIAL*** 500 MG in Sodium Chloride 100ML MINI-BAG PLUS 100 ML IV SCH (17:10)
[2025-02-09 06:16] LABS: Hematocrit 29.8 % (34.1-44.9); Hemoglobin 10.3 g/dL (11.2-15.7); Mean Corpuscular Hemoglobin 29.9 pg (25.6-32.2); Mean Corpuscular Hgb Concent. 34.6 g/dL (32.2-35.5); Platelet Count 267 x10^3/uL (182-369); Red Blood Count 3.44 x10^6/uL (3.93-5.22); White Blood Count 10.1 x10^3/uL (3.98-10.04)
[2025-02-09 06:40] LABS: Calcium 8.9 mg/dL (8.4-10.2); Carbon Dioxide 27.0 mmol/L (22-30); Creatinine 1 0.49 mg/dL (0.52-1.04); EST GLOMERULAR FILTRATION RATE 107.2 ML/MIN; Glucose 111.0 mg/dL (74-106); Potassium 3.3 mmol/L (3.5-5.1); SGOT/AST 32.0 U/L (14-36); SGPT/ALT 19.0 U/L (0-35); Total Protein 6.7 g/dL (6.3-8.2)
[2025-02-09] MEDS: Klor Con PO ONE (08:17)
--- NOTE | 2025-02-09 09:50 | PCM.DS ---
Discharge Summary Date of Admission: 02/06/25 16:54 Date of Discharge: 02/09/25 Admitting Physician: BETTY PAL MD Consults: Consults on Case 02/06/25 16:59 Consult Nephrology ROUTINE Primary Care Provider: CHRIS ROBERT Allergies Allergies No Known Drug Allergies Allergy (Unverified 02/06/25 14:28) Hospital Summary - Hospital Course Hospital Course: A 59-year-old female with a past medical history of depression, hypertension, hyperlipidemia, osteoarthritis, GERD, diverticulitis, and chronic tobacco use presented on 02/06/25 to the emergency department with facial swelling, erythema, blistering, and fever. She reported several days of worsening pain localized to the left cheek and periorbital region. Although previously diagnosed with sinusitis at another facility, her worsening symptoms prompted evaluation at [facility], where CT imaging confirmed facial cellulitis with additional findings of left maxillary sinus disease and osteopenia. She was started on ceftriaxone and vancomycin for presumed periorbital cellulitis. The patient also presented with severe hyponatremia (Na 117), likely secondary to beer potrandihe consumes 1518 beers daily. Normal saline was initiated, nephrology consulted, and the patient was admitted to the ICU for close monitoring. On 02/07/25, the patient remained on the CIWA protocol for alcohol withdrawal and required symptom management overnight. Sodium improved to 122, and NS was continued at a reduced rate. Potassium was found to be 3.1 and repleted. Though chlorhexidine bathing was missed initially due to staffing issues, the patient received one later in the day. Facial swelling showed slight improvement, although periorbital edema had worsened. The patient reported clear drainage from a cheek blister; mupirocin cream was initiated for multiple new skin lesions consistent with a staph-type infection, and contact precautions were implemented. By 02/08/25, the patient showed significant improvement in facial cellulitis, though some periorbital swelling persisted. A Mepilex dressing was applied to the draining blister, and chlorhexidine bathing was continued. Nephrology recommended a 1,500 mL fluid restriction, and IV fluids were discontinued. Sodium levels continued to trend upward to 126. The patient required two doses of Valium overnight for alcohol withdrawal and responded well to Benadryl for persistent edema. Plans were made to transfer her out of the ICU and anticipate discharge within 12 days. On 02/09/25, the patient reported feeling much better. Facial edema and erythema, as well as skin wounds, showed marked improvement. Sodium had risen to 130, potassium was 3.3 and repleted, and WBC count was 10.1. The patient will continue outpatient antibiotics and has been advised to cease alcohol consumption following discharge. - Vitals & Intake/Output Vital Signs: Vital Signs Temperature 98.8 F 02/09/25 07:30 Pulse Rate 95 H 02/09/25 08:28 Respiratory Rate 21 02/09/25 08:28 Blood Pressure 173/99 02/09/25 08:28 O2 Sat by Pulse Oximetry 92 L 02/09/25 08:28 Intake & Output: Intake & Output 02/06/25 02/07/25 02/08/25 02/09/25 11:59 11:59 11:59 11:59 Intake Total 3733 5271 1560 Output Total 3275 1400 5100 Balance 458 9363 -9912 Weight 50.7 kg 65.1 kg - Lab Result Diagrams: 02/09/25 06:07 02/09/25 06:07 Lab Results-Last 24 Hrs: Lab Results-Last 24 Hours 02/08/25 02/08/25 02/09/25 Range/Units 13:06 20:14 06:07 WBC 10.1 H (3.98-10.04) x10^3/uL RBC 3.44 L (3.93-5.22) x10^6/uL Hgb 10.3 L (11.2-15.7) g/dL Hct 29.8 L (34.1-44.9) % MCV 86.6 (79.4-94.8) fL MCH 29.9 (25.6-32.2) pg MCHC 34.6 (32.2-35.5) g/dL RDW 12.2 (11.7-14.4) % Plt Count 267 (182-369) x10^3/uL MPV 8.2 L (9.4-12.3) fL Sodium 125 L 126 L (135-145) mmol/L Potassium (3.5-5.1) mmol/L Chloride (98-107) mmol/L Carbon Dioxide (22-30) mmol/L Anion Gap (5-15) MEQ/L BUN (7-17) mg/dL Creatinine (0.52-1.04) mg/dL Estimated GFR ML/MIN Glucose (74-106) mg/dL Calcium (8.4-10.2) mg/dL Total Bilirubin (0.2-1.3) mg/dL AST (14-36) U/L ALT (0-35) U/L Alkaline Phosphatase (38-126) U/L Serum Total Protein (6.3-8.2) g/dL Albumin (3.5-5.0) g/dL 02/09/25 Range/Units 06:07 WBC (3.98-10.04) x10^3/uL RBC (3.93-5.22) x10^6/uL Hgb (11.2-15.7) g/dL Hct (34.1-44.9) % MCV (79.4-94.8) fL MCH (25.6-32.2) pg MCHC (32.2-35.5) g/dL RDW (11.7-14.4) % Plt Count (182-369) x10^3/uL MPV (9.4-12.3) fL Sodium 130 L (135-145) mmol/L Potassium 3.3 L (3.5-5.1) mmol/L Chloride 94 L (98-107) mmol/L Carbon Dioxide 27 (22-30) mmol/L Anion Gap 12.2 (5-15) MEQ/L BUN 2 L (7-17) mg/dL Creatinine 0.49 L (0.52-1.04) mg/dL Estimated GFR 107.2 ML/MIN Glucose 111 H (74-106) mg/dL Calcium 8.9 (8.4-10.2) mg/dL Total Bilirubin 0.30 (0.2-1.3) mg/dL AST 32 (14-36) U/L ALT 19 (0-35) U/L Alkaline Phosphatase 79 (38-126) U/L Serum Total Protein 6.7 (6.3-8.2) g/dL Albumin 3.6 (3.5-5.0) g/dL Micro Results-Entire Visit: Microbiology 02/08/25 13:50 Wound Culture - Preliminary Face - Left NO GROWTH TO DATE 02/06/25 15:40 Wound Culture - Preliminary Face - Left ORGANISMS ISOLATED ARE CONSISTENT WITH NORMAL SKIN ADRIANA MODERATE GROWTH, NO PREDOMINANT ORGANISM 02/06/25 19:45 Urine Culture - Final Urine, Void <10K NORMAL SKIN ADRIANA PROBABLE SKIN CONTAMINANT - Procedures and Test Procedures and Tests throughout Hospitalization: Therapy Orders & Screens 02/06/25 19:43 OT Screen per Nursing Assess ONCE Comment: Protocol Order Physician Instructions: Greater than 3 points order OT Admission Screening Reason For Exam: Triggered on Admission Diagnosis: periobital cellulitis Open Wound/Cellutlitis/Pressure Ulcers: Yes Acute Fx/ORIF/Change in wt bearing status: No Severe MUSCULOSKELETAL pain: No ADL Dysfunction: No Acute CVA w/Hemiparesis/Hemiplegia: No Decreased Functional Mobility/Strength: No Sprain/Strain: No Acute Post-op Mobility Dysfunction: No Total Points: 5 Smoking Cessation Education ONCE Comment: Diagnosis: periobital cellulitis Smoking Status: Current every day smoker How long have you smoked: 1/2 Have you smoked in the past 12 months: Yes Approximately how many cigarettes per day: 20 Do you dip or chew tobacco: No ST Screen per Nursing Assess ONCE Comment: Protocol Order Physician Instructions: Greater than [address] Admission Screening Reason For Exam: Triggered on Admission Diagnosis: periobital cellulitis CVA/Dysphagia/Aphasia: No Cognitive Deficits: No Dehydration/Nutrition Deficit: Yes: ETOH abuse Reflux: No Oral-Motor Difficulties: No Pneumonia: No Fdc Resident: No Total Points: 5 02/07/25 01:31 Oxygen Nasal Cannula 2 lpm Comment: Diagnosis: periobital cellulitis Respiratory Therapy Assessment DAILY Comment: Diagnosis: periobital cellulitis Discharge Exam General Appearance: no apparent distress, alert Neurologic Exam: alert, oriented x 3, cooperative, normal mood/affect, nml cerebellar function, sensation nml, No motor deficits Eye Exam: PERRL, EOMI, eyes nml inspection, other (edema and erythema improved) Ears, Nose, Throat Exam: normal ENT inspection, pharynx normal, moist mucous membranes Neck Exam: normal inspection, non-tender, supple, full range of motion Respiratory Exam: normal breath sounds, lungs clear, No respiratory distress Cardiovascular Exam: regular rate/rhythm, normal heart sounds Gastrointestinal/Abdomen Exam: soft, No tenderness, No mass Pelvic Exam: deferred Rectal Exam: deferred Back Exam: normal inspection, normal range of motion, No CVA tenderness, No vertebral tenderness Extremity Exam: normal inspection, normal range of motion Skin Exam: normal color, warm, dry, other (lesions on chest and back appear to be healing) Wound Assessment: Skin/Wound Assessment Wound/Incision Assessment Start: 02/06/25 19:43 Text: Status: Active Freq: Q6H Protocol: Document 02/09/25 02:00 (Rec: 02/09/25 02:15 [id number]) Wound/Incision Assessment Bilateral Periorbital Wound Assessment Shift Assessment Wound Type cellulitis Wound Stage Non Pressure Wound Drainage Amount Minimal Drainage Description Serous General Appearance Open to air,Draining Surrounding Tissue Edematous Left Cheek Wound Assessment Shift Assessment Wound Type cellulitis Wound Stage Non Pressure Wound Dressing Status Changed Drainage Amount Minimal Drainage Description Serous Drainage Odor None/Absent General Appearance Clean/Dry,Draining Surrounding Tissue Edematous Primary Dressing mepilex Left Axilla Wound Assessment Shift Assessment Wound Type lesions Wound Stage Non Pressure Wound Drainage Amount None General Appearance Open to air,Clean/Dry,Reddened Surrounding Tissue Bright Red Comment 3 lesions Left Posterior Shoulder Wound Assessment Shift Assessment Wound Type lesions Wound Stage Non Pressure Wound Drainage Amount None General Appearance Open to air,Clean/Dry,Reddened Surrounding Tissue Bright Red Comment 5 lesions Wound Photo Photo Taken No Final Diagnosis/Problem List - Final Discharge Diagnosis/Problem (1) Hyponatremia Current Visit: Yes Status: Acute Code(s): E87.1 - HYPO-OSMOLALITY AND HYPONATREMIA (2) Periorbital cellulitis of left eye Current Visit: Yes Status: Acute Code(s): L03.213 - PERIORBITAL CELLULITIS (3) Blister, face Current Visit: Yes Status: Acute Code(s): S00.82XA - BLISTER (NONTHERMAL) OF OTHER PART OF HEAD, INIT ENCNTR (4) Skin lesions Current Visit: Yes Status: Acute Code(s): L98.9 - DISORDER OF THE SKIN AND SUBCUTANEOUS TISSUE, UNSPECIFIED (5) Poor personal hygiene Current Visit: Yes Status: Acute Code(s): R46.0 - VERY LOW LEVEL OF PERSONAL HYGIENE (6) History of alcohol abuse Current Visit: Yes Status: Chronic Code(s): F10.11 - ALCOHOL ABUSE, IN REMISSION (7) Hx of drug abuse Current Visit: Yes Status: Chronic Code(s): F19.11 - OTHER PSYCHOACTIVE SUBSTANCE ABUSE, IN REMISSION (8) HTN (hypertension) Current Visit: Yes Status: Chronic Code(s): I10 - ESSENTIAL (PRIMARY) HYPERTENSION (9) Hyperlipidemia Current Visit: Yes Status: Chronic Code(s): E78.5 - HYPERLIPIDEMIA, UNSPECIFIED (10) Smoker Current Visit: Yes Status: Chronic Code(s): F17.200 - NICOTINE DEPENDENCE, UNSPECIFIED, UNCOMPLICATED (11) Depression Current Visit: Yes Status: Chronic Code(s): F32.A - DEPRESSION, UNSPECIFIED (12) Iron deficiency anemia Current Visit: Yes Status: Acute Code(s): D50.9 - IRON DEFICIENCY ANEMIA, UNSPECIFIED (13) Vitamin D deficiency Current Visit: Yes Status: Acute Assessment & Plan: (1) Hyponatremia Current Visit: Yes Status: Acute Assessment & Plan: - Do not correct Na+ faster than 6-12 meq/L per day - Seizure precautions - ICU-Tele - IVF reduced to 150 ml/hr, was running at 200ml/hr in ER - Nephrology COnsult - Urine NA+, Serum and urine osmo- pending - UA pending - 2:2 beer potomania- drinks 15-18 beers per day - Repeat Na+ Q6 hours 02/07 - Awaiting nephro recs - Repeat Na+ Q6 hours - NS at 150ml/hr - UA reviewed - CBC, CMP reviewed - Na+ 122 today - Urine Na+ 17 02/08 - Na+ 125 - Continue Q6 sodium checks - Nephrology placed pt on 1,500 fluid restriction and IVF stopped - Pt to be moved out of ICU to med-surg tele - CBC, CMP reviewed 02/09 - Na+ 130 - CBC, CMP reviewed Code(s): E87.1 - HYPO-OSMOLALITY AND HYPONATREMIA (2) Periorbital cellulitis of left eye Current Visit: Yes Status: Acute Assessment & Plan: - IV antibiotics - IVF - CBC, CMP reviewed - CT facial bones: 1. Left facial soft tissue swelling presumed clinically reported cellulitis. 2. Incidental left maxillary sinus disease, nasal septal deviation, right middle turbinate rupesh bullosa, and osteopenia. 3. Remaining CT facial bones is negative. 02/07 - BL edema of eyes - Benadryl IV x1 02/08 - Improving- edema now under eyes - Benadryl IV x1 - WC negative 02/09 - Sxs improved - WBC 10.1 - Continue OP antbx Code(s): L03.213 - PERIORBITAL CELLULITIS (3) Blister, face Current Visit: Yes Status: Acute Assessment & Plan: - Left side of face large blister - Nurse to take pics for chart - Pt denies any recent drug use or dental infection and reports she has dentures. 02/07 - Blister draining clear output and improved overnight - Mepilex for drainage 02/08 - WC negative 02/09 - 2nd WC negative - Pt IV lost this am and oral 1 time dose of cefuroxime gave PO Code(s): S00.82XA - BLISTER (NONTHERMAL) OF OTHER PART OF HEAD, INIT ENCNTR (4) Skin lesions Current Visit: Yes Status: Acute Assessment & Plan: - Multiple skin lesions of chest and back - Consider ointment if lesions do not improve. - Wound culture pending 02/07 - WC negative- done before chlorhexidine bath - Bath this AM - Mupirocin cream to lesions - Contact Isolation - Denies STI type lesions or concerns - Nurse obtain order for Syphilis test last night per note- order placed today for AM lab as this was not completed last night. 02/08 - Chlorhexidine bath - Wounds appear to be healing 02/09 - Wounds appear to be healing - Continue Mupirocin cream to lesions OP Code(s): L98.9 - DISORDER OF THE SKIN AND SUBCUTANEOUS TISSUE, UNSPECIFIED (5) Poor personal hygiene Current Visit: Yes Status: Acute Assessment & Plan: - Pt has poor personal hygiene and malodorous. - Bath pt with chlorhexidine d/t multiple lesions of skin. - Case management consult. 02/07 - Chlorhexidine bath completed today by day shift staff 02/08 - Chlorhexidine bath Code(s): R46.0 - VERY LOW LEVEL OF PERSONAL HYGIENE (6) History of alcohol abuse Current Visit: Yes Status: Chronic Assessment & Plan: - Alcohol level negative - Per family pt drinks 15-18 beers per day - She reports drinking 1 beer today - Alcohol withdrawal protocol ordered- discussed with pt. - Pt states she does note feel like she has a problem and does not want treatment. - Explained this amount of beer consumption is a problem and she should consider treatment. - Iron labs, Vitamin D level 02/08 - Pt required valium x2 last night for sxs Code(s): F10.11 - ALCOHOL ABUSE, IN REMISSION (7) Hx of drug abuse Current Visit: Yes Status: Chronic Assessment & Plan: - UDS ordered - Pt reports no recent drug use - + blister on left side of face- looks like a burn - Abnormal lesion on left chest and back 02/07 - UDS negative Code(s): F19.11 - OTHER PSYCHOACTIVE SUBSTANCE ABUSE, IN REMISSION (8) HTN (hypertension) Current Visit: Yes Status: Chronic Assessment & Plan: - BP stable - Continue home med 02/08 - Bp elevated - IVF stopped - Trend 02/09 - BP meds gave early- If BP improves may d/c Code(s): I10 - ESSENTIAL (PRIMARY) HYPERTENSION (9) Hyperlipidemia Current Visit: Yes Status: Chronic Assessment & Plan: - Continue statin Code(s): E78.5 - HYPERLIPIDEMIA, UNSPECIFIED (10) Smoker Current Visit: Yes Status: Chronic Assessment & Plan: - Advised cessation - If Na+ level improves may consider nicotine patch- hold for now as nicotine can lower Na+ level. Code(s): F17.200 - NICOTINE DEPENDENCE, UNSPECIFIED, UNCOMPLICATED (11) Depression Current Visit: Yes Status: Chronic Assessment & Plan: - Pt reports she is not currently taking anything for this and self medicates with beer. - Pt denies homicidal or suicidal ideation Code(s): F32.A - DEPRESSION, UNSPECIFIED (12) Iron deficiency anemia Current Visit: Yes Status: Acute Assessment & Plan: - Daily ferrous sulfate started - Iron panel reviewed - Iron sat 14, Fe+ 33 - Hgb 9.2 02/09 - Hgb 10.3 Code(s): D50.9 - IRON DEFICIENCY ANEMIA, UNSPECIFIED (13) Vitamin D deficiency Current Visit: Yes Status: Acute Assessment & Plan: - Vitamin D 19.9- daily replacement ordered - Will need OP f/u- education provided Code(s): E55.9 - VITAMIN D DEFICIENCY, UNSPECIFIED - Discharge Discharge Date: 02/09/25 Disposition: Home, Self-Care Condition: Stable Prescriptions: New Mupirocin [Bactroban OINTMENT] 0 gm TP DAILY Ferrous Sulfate 325 mg [Feosol 325 mg] 325 mg PO DAILY 30 Days #30 tablet Cholecalciferol (Vitamin D3) [Vitamin D] 1,000 unit PO DAILY 30 Days #30 tablet Continue Clopidogrel Bisulfate [PLAVIX Tablet] 75 mg PO DAILY PANTOPRAZOLE 40 mg Tablet [Protonix 40MG Tablet] 40 mg PO QAM Atorvastatin Calcium [Lipitor 40Mg] 40 mg PO HS Lisinopril 10 mg [Zestril 10 MG] 10 mg PO DAILY Aspirin EC 81 mg [Ecotrin 81 mg] 81 mg PO DAILY Hydroxyzine HCl 25 mg [Atarax 25 mg] 100 mg PO TID Metoprolol Succinate 50 mg [Toprol Xl 50 MG] 50 mg PO DAILY Cyclobenzaprine HCl 5 mg PO BID Discontinued Amox Tr/Potass Clav. 875 mg [Augmentin 875-125 Tablet] 875 mg PO BID Instructions: Hyponatremia, Cellulitis around the eye - Discharge instructions Follow up with: CHRIS ROBERT MD [Primary Care Provider, INTERNAL MEDICINE] - 02/14/25 3:15 pm Referral Note: [facility]
[2025-02-09] MEDS: CEFTIN 500 MG PO ONE (10:12)
[2025-02-09 10:16] VITALS: BP 151/76; PULSE 85; RESP 17; TEMP 97.6; O2SAT 95
[2025-02-10 15:08] LABS: Osmolality, Urine 288 mOsmol/kg (.)
[2025-02-10 15:11] LABS: Osmolality-Se/Pl 237 mOsmol/kg (280-301)
== END 2025-02-09 10:30 | disposition home or self-care (01) | DRG 641 ==
LOC: ED 14:06 → ICU 16:54
PROVIDERS: ADMIT Internal Medicine; ATTEND Internal Medicine
DX: E87.1 Hypo-osmolality and hyponatremia (principal); L03.213 Periorbital cellulitis; S00.82XA Blister (nonthermal) of other part of head, initial encounter; L98.9 Disorder of the skin and subcutaneous tissue, unspecified; F10.11 Alcohol abuse, in remission; F19.11 Other psychoactive substance abuse, in remission; I10 Essential (primary) hypertension; E78.5 Hyperlipidemia, unspecified; F17.200 Nicotine dependence, unspecified, uncomplicated; F32.A Depression, unspecified; D50.9 Iron deficiency anemia, unspecified; E55.9 Vitamin D deficiency, unspecified; Z79.899 Other long term (current) drug therapy; Z79.01 Long term (current) use of anticoagulants
CPT/HCPCS: 36415; 70486; 80048; 80053; 80202; 80307; 81001; 82077; 82306; 82607; 82728; 82746; 83540; 83550; 83735; 83930; 83935; 84132; 84134; 84295; 84300; 85025; 85027; 86780; 87070; 87086; 96374; 96375; 99285; Q3014